=== PATIENT | male | born 1935 | race Caucasian/White ===

== ENCOUNTER 2018-01-10 14:12 | Inpatient (IN) | payer OTHER ==
--- NOTE | 2018-01-10 14:32 | PDOC ---
History of Present Illness - General Chief Complaint: SIRS, Suspected/Possible Stated Complaint: Faliure to Thrive Time Seen by Provider: 01/10/18 14:30 History Source: Patient, [facility] Records (Called [facility]) Exam Limitations: Dementia - History of Present Illness Initial Comments: Pt, with PMH of dementia, HTN, HLD, COPD, and DM, presents with altered mental status, abdominal distension, fever, diarrhea, and decreased oral intake x3 days. Pt comes from [facility], who stated that the pt is normally alert and oriented. The pt can respond minimally to questions, and he says he feels "full" in his abdomen, and that he has had vomiting and diarrhea. The rest of the review of systems I was not able to obtain from pt due to lack of response. 01/10/18 16:55 Past History - Travel Traveled outside of the country in the last 30 days: No Close contact w/someone who was outside of country & ill: No - Past Medical History Allergies/Adverse Reactions: Allergies Allergy/AdvReac Type Severity Reaction Status Date / Time No Known Allergies Allergy Verified 01/10/18 15:42 Home Medications: Ambulatory Orders Acetaminophen [Tylenol] 325 mg PO PRN PRN 01/10/18 Aspirin [ASA -] 81 mg PO DAILY 01/10/18 Atorvastatin Ca [Lipitor] 20 mg PO HS 01/10/18 Brinzolamide [Azopt] 1 drop OP BID 01/10/18 Ceftriaxone 1 G/50 ml Premix [Ceftriaxone 1 gm-D5w Bag] 1 gm IVPB DAILY Dextran 70/Hypromellose/Pf [Artificial Tears Drops] 1 each OP BID 01/10/18 Divalproex *ER* [Depakote *ER* -] 500 mg PO BID 01/10/18 Docusate Sodium [Colace] 100 mg PO DAILY 01/10/18 Gabapentin [Neurontin] 600 mg PO TID 01/10/18 Latanoprost 0.005% Eye Drops [Xalatan 0.005% Eye Drops -] 1 drop OP HS 01/10/18 Levocetirizine Dihydrochloride [Xyzal] 5 mg PO HS 01/10/18 Magnesium Hydroxide [Milk of Magnesia -] 30 ml PO DAILY PRN 01/10/18 Menthol/Colloidal Oatmeal [Eucerin Calm Itch-Relief Lot] 200 ml TP BID 01/10/18 Metformin HCl [Glucophage] 500 mg PO DAILY 01/10/18 Metoprolol Tartrate [Lopressor -] 25 mg PO BID 01/10/18 Montelukast Sodium [Singulair] 10 mg PO DAILY 01/10/18 Omeprazole Magnesium [Prilosec Otc] 20 mg PO DAILY 01/10/18 Ramipril [Altace] 2.5 mg PO DAILY 01/10/18 Sennosides [Senna] 8.6 mg PO HS 01/10/18 Sitagliptin Phosphate [Januvia] 100 mg PO DAILY 01/10/18 Sodium Phosphate,[place]-Dibasic [Fleet Enema] 133 ml RC PRN PRN 01/10/18 Tamsulosin HCl [Flomax] 0.4 mg PO DAILY 01/10/18 Hx Myocardial Infarction: No COPD: Yes CHF: No Diabetes: Yes Dialysis: No HTN: Yes Hypercholesterolemia: Yes Psychiatric Problems: Yes (Dementia) Review of Systems - Review of Systems Able to Perform ROS?: No Comments:: Pt limited in response, gathered some recent history details from [facility]. 01/10/18 17:11 Is the patient limited Angolan proficient: Yes Constitutional: Yes: Fever, Loss of Appetite ABD/GI: Yes: Abdominal Distended, Constipated, Diarrhea (Constipated x3 days, now having loose brown stool), Poor Appetite, Vomiting Psychiatric: Yes: Change in Appetite *Physical Exam - Physical Exam General Appearance: Yes: Nourished, Appropriately Dressed, Apparent Distress ( Pt complaining of abdominal "fullness", febrile by rectal temperature, tachypneic/poor inspiration) HEENT: positive: EOMI, Normal ENT Inspection, Normal Voice, Symmetrical. negative: Tonsillar Exudate Neck: positive: Trachea midline, Normal Thyroid, Supple. negative: Tender, Rigid Respiratory/Chest: positive: Lungs Clear, Normal Breath Sounds (clear chest sounds, short inspiration.). negative: Chest Tender, Accessory Muscle Use, Decreased Breath Sounds Cardiovascular: positive: Regular Rhythm, Regular Rate, S1, S2, Edema (mild edema to mid-shins). negative: JVD, Murmur Vascular Pulses: Dorsalis-Pedis (R): 4+, Doralis-Pedis (L): 4+ Gastrointestinal/Abdominal: positive: Soft (taut abdomen, no rebound, no guarding.), Decreased BS, Distended (very distended and protuberant abdomen). negative: Normal Bowel Sounds, Tender, Flat, Organomegaly Rectal Exam: positive: heme negative stool (loose brown stool), NL Prostate, normal rectal tone, hemorrhoids Lymphatic: negative: Adenopathy, Tenderness Musculoskeletal: positive: Normal Inspection. negative: CVA Tenderness Extremity: positive: Normal Capillary Refill, Normal Inspection, Normal Range of Motion, Pelvis Stable. negative: Tender Integumentary: positive: Normal Color, Dry, Warm. negative: Mottled, Diaphoresis, Rash, Ecchymosis, Bruising Neurologic: positive: Alert (pt opens eyes to voice. minimally following commands, but can shake head yes and no. Doesn't answer orientation questions.) , Motor Strength 5/5, Disoriented. negative: Fully Oriented, Normal Mood/Affect , Normal Response Heart Score/ECG Review - History History: Slightly suspicious - Age Age: >/= 65 - Risk Factors Risk Factors Heart Score: Yes Hx Hypercholesterolemia, Yes Hx Hypertension, Yes Hx Diabetes - Troponin Troponin: 1-3x normal limit - ECG Intrepretation Rhythm: Regular Rhythm - [place] Greendale: Left [place] Deviation - P and [place] Delta Wave(s) Present: No WPW: No - QRS Widened: RBBB (RBBB present from prior cardiac work-up at [facility]. No other recent ECG to compare.) - ST and T Flattened T Waves: No Prolonged Q-T Interval: Yes - ECG Impressions Normal ECG: No Non-specific ST Elevation: No Ischemic Changes: No Bradycardia: No Torsades ingrid Pointes: No WPW: No ED Treatment Course - LABORATORY CBC & Chemistry Diagram: 01/10/18 15:26 01/10/18 15:26 - RADIOLOGY Radiology Studies Ordered: chest x-ray CT abdomen and pelvis, non-contrast. CT head non-contrast 01/10/18 17:41 Medical Decision Making - Medical Decision Making Pt seen at bedside, provided 3L O2 as pt appeared to have poor inspiratory effort and was tachypneic. Ordered septic work-up (ECG, troponin, BGM, CBC, CMP , UA and culture, lactate, blood cultures.) Started 1L NS, Vanc (1.5 g) and zosyn (4.5 g). Also ordered chest x-ray, CT abd/pelvis without contrast, and Head CT non- contrast to r/o abdominal pathology and bleed. ECG showed RBBB, which was present from his last visit for stress test in 2011. 01/10/18 16:03 BGM 221 01/10/18 16:16 Pt lactic acid 2.6, WBC 26, BUN 34, Cr 2. UA and occult stool negative for blood. Troponin .06, likely due to increased cardiac demand. Sending c diff toxin. 01/10/18 17:[address] abd/pelvis to admit to hospitalist. 01/10/18 18:06 Added lipase, sent to lab. 01/10/18 18:15 Dr. Romo spoke to hospitalist, will admit to Dr. Cleary. Repeat vitals improved, no hypotension. 01/10/18 19:06 *DC/Admit/Observation/Transfer Diagnosis at time of Disposition: Severe sepsis Pancreatitis Qualifiers: Chronicity: acute Pancreatitis type: unspecified pancreatitis type Acute pancreatitis complication: unspecified Qualified Code(s): K85.90 - Acute pancreatitis without necrosis or infection, unspecified - Discharge Dispostion Decision to Admit order: Yes - Referrals Referrals: Shabnam Leung MD [Primary Care Provider] - - Patient Instructions - Post Discharge Activity
--- NOTE | 2018-01-10 14:47 | PDOC ---
Attending Attestation - Resident Resident Name: Shanna Bhakta - Medical Decision Making 01/10/18 16:01 Pt presents to the ED after sent in from [facility] for generalized malaise, decreased PO intake, and constipation. Found to be altered in the ED with abdominal distention. Also febrile. Patient is likely septic from unknown source. Given his severe abdominal distention, differential includes SBO or large bowel obstruction, volvulus, perforation, less likely diverticulitis, colitis, intraabdominal abscess. Will check CT abdomen pelvis. Will start broad spectrum antibiotics. Will check UA and blood cultures. <Essence Romo - Last Filed: 01/10/18 16:00> - HPI HPI: 01/10/18 17:15 Patient is an 82 year old male with a significant past medical history of dementia, HTN, HLD, COPD, and DM, who presents to the ED with complaints of of abdominal distention that began x3 days ago. As per [facility] staff, patient began to complain of experiencing symptoms of fullness as well as associated symptoms of increased fever, decreased appetite, and diarrhea, prompting them to send the patient to the ED for further evaluation. [facility] staff state has not been at baseline, stating he does not speak in full sentences like usual. Denies chest pain, Sob. Denies nausea, vomiting. Denies fevers, chills. Denies contact with sick individuals, out of state travelling. Denies head trauma, loss of consciousness, vision changes. Denies dysuria, hematuria, constipation, diarrhea. Denies any other symptoms. Allergies: None Social history: From [facility]. No smoking. No alcohol. No illicit drugs. Surgical history: PMD: Dr. Shabnam Ruelas - Physicial Exam PE: 01/10/18 17:16 GENERAL: +Lethargic. +Unable to to answer questions or follow commands. Awake, alert, and fully oriented, in no acute distress HEAD: No signs of trauma EYES: +Opens eyes to loud noise. PERRLA, EOMI, sclera anicteric, conjunctiva clear ENT: Auricles normal inspection, hearing grossly normal, nares patent, oropharynx clear without exudates. Moist mucosa NECK: Normal ROM, supple, no lymphadenopathy, JVD, or masses LUNGS: Breath sounds equal, clear to auscultation bilaterally. No wheezes, and no crackles HEART: Regular rate and rhythm, normal S1 and S2, no murmurs, rubs or gallops ABDOMEN: +Distended. Non rigid. Soft, nontender, normoactive bowel sounds. No guarding, no rebound. No masses EXTREMITIES: Normal range of motion, no edema. No clubbing or cyanosis. No cords, erythema, or tenderness NEUROLOGICAL: Cranial nerves II through XII grossly intact. Normal speech, normal gait SKIN: Warm, Dry, normal turgor, no rashes or lesions noted. <Genaro Louis - Last Filed: 01/10/18 17:16>
[2018-01-10 15:37] LABS: BASO % 0.1 % (0-2.0); HEMATOCRIT 40.9 % (35.4-49); HEMOGLOBIN 13.6 GM/dL (11.7-16.9); LYMPH % 3.1 % (8-40); MCH 31.1 pg (25.7-33.7); MCHC 33.2 g/dl (32.0-35.9); MEAN CELL VOLUME 93.6 fl (80-96); MEAN PLT VOLUME 9.9 fl (7.5-11.1); MONO % 10.8 % (3.8-10.2); PLATELET COUNT 260 K/MM3 (134-434); RBC 4.37 M/mm3 (4.00-5.60); RDW 14.5 % (11.9-15.9); WHITE BLOOD COUNT 26.8 K/mm3 (4.0-10.0)
[2018-01-10 15:40] LABS: VENOUS PC02 49.2 mmHg (38-52); VENOUS PH 7.4 (7.32-7.42); VENOUS PO2 23.9 mmHg (28-48)
[2018-01-10] MEDS: SODIUM CHLORIDE 1,000 ML IV STA ×2 (15:43→15:47)
[2018-01-10] MEDS ORDERED: ACETAMINOPHEN 1000 MG/100 ML VIAL (NON FORMULARY) IVPB ONE (15:44)
[2018-01-10] MEDS ORDERED: ACETAMINOPHEN INJECTION 100 ML IVPB ONE (15:45)
[2018-01-10 15:56] LABS: INR 1.38 (0.82-1.09); PROTHROMBIN TIME (PATIENT) 15.6 SEC (9.7-13.0)
[2018-01-10] MEDS ORDERED: VANCOMYCIN 1,500 MG in DEXTROSE 5%-WATER - 500 ML IVPB ONE (15:56)
[2018-01-10 15:58] LABS: ACTIVATED PTT 28.5 SECONDS (25.2-36.5)
[2018-01-10] MEDS ORDERED: PIPERACILLIN/TAZOB 4.5 GM 4.5 GM in DEXTROSE 5%-WATER 100 ML IVPB ONE (15:59)
[2018-01-10 16:13] LABS: ALBUMIN 2.8 g/dl (3.4-5.0); ANION GAP 10 (8-16); CALCIUM 8.3 mg/dL (8.5-10.1); CHLORIDE 100 mmol/L (98-107); CO2 30 mmol/L (21-32); GLUCOSE,RANDOM 170 mg/dL (74-106); POTASSIUM 4.6 mmol/L (3.5-5.1); SGOT/AST 41 U/L (15-37); SGPT/ALT 20 U/L (12-78); SODIUM 140 mmol/L (136-145)
[2018-01-10 16:17] LABS: ALK PHOS 66 U/L (45-117); BILIRUBIN,TOTAL 0.8 mg/dL (0.2-1.0); BLOOD UREA NITROGEN 34 mg/dL (7-18); TOT PROT 7.3 g/dl (6.4-8.2)
[2018-01-10 16:41] LABS: URINE APPEARANCE SLCLOUDY; URINE BILIRUBIN NEGATIVE (<2.0 mg/dL); URINE COLOR AMBER; URINE GLUCOSE (UA) NEGATIVE (NEGATIVE); URINE KETONE NEGATIVE (NEGATIVE); URINE LEUK ESTERASE NEGATIVE (NEGATIVE); URINE NITRITE NEGATIVE (NEGATIVE); URINE UROBILINOGEN NEGATIVE mg/dL (0.2-1.0)
[2018-01-10 16:42] LABS: URINE PROTEIN 2+ (NEGATIVE)
[2018-01-10 16:45] LABS: URINE BACTERIA RARE /hpf (NONE SEEN); URINE MUCUS FEW
[2018-01-10] MEDS ORDERED: VANCOMYCIN 1 GRAM (PRE-DOCKED) 1,000 MG/250 ML BAG IVPB ONE (16:47)
[2018-01-10] MEDS ORDERED: PIPERACILLIN/TAZOB 4.5 GM 4.5 GM/100 ML BAG IVPB ONE (16:47)
[2018-01-10 18:17] LABS: PLATELET ESTIMATE ADEQUATE
--- NOTE | 2018-01-10 23:48 | HP ---
CHIEF COMPLAINT: vomiting, abdominal pain, fever PCP: Evin HISTORY OF PRESENT ILLNESS: 82yo man with PMH of dementia, HTN, HLD, COPD, and DM, presented from [facility] complaining of abdominal pain, fever, nausea, vomiting for the past few days. Abdominal pain is epigastric, no radiation, no clear alleviating or worsening factors. No clear causative factors. Denied history of eoth abuse, gallstones, or trauma. Pt with constipation as well. ER course was notable for: (1) vancomycin (2) zosyn (3) CT of abdomen/pelvis Recent Travel: no PAST MEDICAL HISTORY: HTN, HLD, COPD, and DM, PAST SURGICAL HISTORY: pacemaker placement Social History: Smoking: no Alcohol: no Drugs: no Family History: noncontributory Allergies No Known Allergies Allergy (Verified 01/10/18 15:42) HOME MEDICATIONS: Home Medications Medication Instructions Recorded Acetaminophen [Tylenol] 325 mg PO PRN PRN 01/10/18 Aspirin [ASA -] 81 mg PO DAILY 01/10/18 Atorvastatin Ca [Lipitor] 20 mg PO HS 01/10/18 Brinzolamide [Azopt] 1 drop OP BID 01/10/18 Ceftriaxone 1 G/50 ml Premix 1 gm IVPB DAILY 01/10/18 [Ceftriaxone 1 gm-D5w Bag] Dextran 70/Hypromellose/Pf 1 each OP BID 01/10/18 [Artificial Tears Drops] Divalproex *ER* [Depakote *ER* -] 500 mg PO BID 01/10/18 Docusate Sodium [Colace] 100 mg PO DAILY 01/10/18 Gabapentin [Neurontin] 600 mg PO TID 01/10/18 Latanoprost 0.005% Eye Drops 1 drop OP HS 01/10/18 [Xalatan 0.005% Eye Drops -] Levocetirizine Dihydrochloride 5 mg PO HS 01/10/18 [Xyzal] Magnesium Hydroxide [Milk of 30 ml PO DAILY PRN 01/10/18 Magnesia -] Menthol/Colloidal Oatmeal [Eucerin 200 ml TP BID 01/10/18 Calm Itch-Relief Lot] Metformin HCl [Glucophage] 500 mg PO DAILY 01/10/18 Metoprolol Tartrate [Lopressor -] 25 mg PO BID 01/10/18 Montelukast Sodium [Singulair] 10 mg PO DAILY 01/10/18 Omeprazole Magnesium [Prilosec Otc] 20 mg PO DAILY 01/10/18 Ramipril [Altace] 2.5 mg PO DAILY 01/10/18 Sennosides [Senna] 8.6 mg PO HS 01/10/18 Sitagliptin Phosphate [Januvia] 100 mg PO DAILY 01/10/18 Sodium Phosphate,[place]-Dibasic 133 ml RC PRN PRN 01/10/18 [Fleet Enema] Tamsulosin HCl [Flomax] 0.4 mg PO DAILY 01/10/18 REVIEW OF SYSTEMS CONSTITUTIONAL: fever, chills, generalized weakness Absent: malaise, loss of appetite, weight change HEENT: Absent: rhinorrhea, nasal congestion, throat pain, throat swelling, difficulty swallowing, mouth swelling, ear pain, eye pain, visual changes CARDIOVASCULAR: Absent: chest pain, syncope, palpitations, irregular heart rate, lightheadedness , peripheral edema RESPIRATORY: shortness of breath Absent: cough, dyspnea with exertion, orthopnea, wheezing, stridor, hemoptysis GASTROINTESTINAL:abdominal pain, nausea, vomiting, abdominal distension, Absent: diarrhea, constipation, melena, hematochezia GENITOURINARY: dysuria, Absent:frequency, urgency, hesitancy, hematuria, flank pain, genital pain MUSCULOSKELETAL: Absent: myalgia, arthralgia, joint swelling, back pain, neck pain SKIN: Absent: rash, itching, pallor HEMATOLOGIC/IMMUNOLOGIC: Absent: easy bleeding, easy bruising, lymphadenopathy, frequent infections ENDOCRINE: Absent: unexplained weight gain, unexplained weight loss, heat intolerance, cold intolerance NEUROLOGIC: Absent: headache, focal weakness or paresthesias, dizziness, unsteady gait, seizure, mental status changes, bladder or bowel incontinence PSYCHIATRIC: Absent: anxiety, depression, suicidal or homicidal ideation, hallucinations. PHYSICAL EXAMINATION Vital Signs - 24 hr 01/10/18 01/10/18 01/10/18 14:29 15:18 17:21 Temperature 100.8 F H 97.8 F Pulse Rate 79 84 Pulse Rate [ 84 Left Apical] Respiratory 16 16 Rate Blood Pressure 137/86 136/83 Blood Pressure 136/83 [Left Arm] O2 Sat by Pulse 79 L 96 98 Oximetry (%) 01/10/18 01/10/18 01/10/18 18:55 20:49 22:46 Temperature 98.9 F 98.6 F 99 F Pulse Rate 94 H Pulse Rate [ 84 79 Left Apical] Respiratory 22 20 20 Rate Blood Pressure 115/75 Blood Pressure 161/77 137/64 [Left Arm] O2 Sat by Pulse 96 98 Oximetry (%) 01/10/18 23:14 Temperature Pulse Rate Pulse Rate [ Left Apical] Respiratory 20 Rate Blood Pressure Blood Pressure [Left Arm] O2 Sat by Pulse 96 Oximetry (%) GENERAL: Awake, alert, and fully oriented, appears comfortable HEAD: Normal with no signs of trauma. EYES: Pupils equal, round and reactive to light, extraocular movements intact, sclera anicteric, conjunctiva clear. No lid lag. EARS, NOSE, THROAT: Ears normal, nares patent, oropharynx clear without exudates. Moist mucous membranes. NECK: Normal range of motion, supple without lymphadenopathy, JVD, or masses. LUNGS: Breath sounds equal, clear to auscultation bilaterally. No wheezes, and no crackles. No accessory muscle use. HEART: Regular rate and rhythm, normal S1 and S2 without murmur, rub or gallop. ABDOMEN: mild distention, decreased bowel sounds MUSCULOSKELETAL: Normal range of motion at all joints. No bony deformities or tenderness. No CVA tenderness. UPPER EXTREMITIES: 2+ pulses, warm, well-perfused. No cyanosis. No clubbing. No peripheral edema. LOWER EXTREMITIES: 2+ pulses, warm, well-perfused. No calf tenderness. No peripheral edema. PSYCHIATRIC: Cooperative. Good eye contact. Appropriate mood and affect. SKIN: Warm, dry, normal turgor, no rashes or lesions noted, normal capillary refill. Laboratory Results - last 24 hr 01/10/18 01/10/18 01/10/18 15:25 15:26 15:26 WBC 26.8 H RBC 4.37 Hgb 13.6 Hct 40.9 MCV 93.6 MCH 31.1 MCHC 33.2 RDW 14.5 Plt Count 260 MPV 9.9 Absolute Neuts (auto) 23.1 Neutrophils % 86.0 H Neutrophils % (Manual) 58.0 Band Neutrophils % 22.0 Lymphocytes % 3.1 L Lymphocytes % (Manual) 9.0 Monocytes % 10.8 H Monocytes % (Manual) 11 H Eosinophils % 0.0 Eosinophils % (Manual) 0.0 Basophils % 0.1 Basophils % (Manual) 0.0 Nucleated RBC % 0 Platelet Estimate Adequate PT with INR 15.60 H* INR 1.38 H PTT (Actin FS) 28.5 VBG pH 7.40 POC VBG pCO2 49.2 POC VBG pO2 23.9 L Mixed VBG HCO3 29.8 H Sodium Potassium Chloride Carbon Dioxide Anion Gap BUN Creatinine Creat Clearance w eGFR POC Glucometer Random Glucose Lactic Acid Calcium Total Bilirubin AST ALT Alkaline Phosphatase Troponin I Total Protein Albumin Lipase Urine Color Urine Appearance Urine pH Ur Specific [place] Urine Protein Urine Glucose (UA) Urine Ketones Urine Blood Urine Nitrite Urine Bilirubin Urine Urobilinogen Ur Leukocyte Esterase Urine WBC (Auto) Urine RBC (Auto) Urine Bacteria Urine Mucus Stool Occult Blood 01/10/18 01/10/18 01/10/18 15:26 15:26 15:26 WBC RBC Hgb Hct MCV MCH MCHC RDW Plt Count MPV Absolute Neuts (auto) Neutrophils % Neutrophils % (Manual) Band Neutrophils % Lymphocytes % Lymphocytes % (Manual) Monocytes % Monocytes % (Manual) Eosinophils % Eosinophils % (Manual) Basophils % Basophils % (Manual) Nucleated RBC % Platelet Estimate PT with INR INR PTT (Actin FS) VBG pH POC VBG pCO2 POC VBG pO2 Mixed VBG HCO3 Sodium 140 Potassium 4.6 Chloride 100 Carbon Dioxide 30 Anion Gap 10 BUN 34 H Creatinine 2.0 H Creat Clearance w eGFR 32.31 POC Glucometer Random Glucose 170 H Lactic Acid 2.6 H* Calcium 8.3 L Total Bilirubin 0.8 AST 41 H ALT 20 Alkaline Phosphatase 66 Troponin I 0.06 H Total Protein 7.3 Albumin 2.8 L Lipase Urine Color Urine Appearance Urine pH Ur Specific [place] Urine Protein Urine Glucose (UA) Urine Ketones Urine Blood Urine Nitrite Urine Bilirubin Urine Urobilinogen Ur Leukocyte Esterase Urine WBC (Auto) Urine RBC (Auto) Urine Bacteria Urine Mucus Stool Occult Blood Negative 01/10/18 01/10/18 01/10/18 16:00 16:12 18:48 WBC RBC Hgb Hct MCV MCH MCHC RDW Plt Count MPV Absolute Neuts (auto) Neutrophils % Neutrophils % (Manual) Band Neutrophils % Lymphocytes % Lymphocytes % (Manual) Monocytes % Monocytes % (Manual) Eosinophils % Eosinophils % (Manual) Basophils % Basophils % (Manual) Nucleated RBC % Platelet Estimate PT with INR INR PTT (Actin FS) VBG pH POC VBG pCO2 POC VBG pO2 Mixed VBG HCO3 Sodium Potassium Chloride Carbon Dioxide Anion Gap BUN Creatinine Creat Clearance w eGFR POC Glucometer [phone] Random Glucose Lactic Acid 2.0 Calcium Total Bilirubin AST ALT Alkaline Phosphatase Troponin I Total Protein Albumin Lipase Urine Color Allison Urine Appearance Slcloudy Urine pH 5.0 Ur Specific [place] 1.030 Urine Protein 2+ H Urine Glucose (UA) Negative Urine Ketones Negative Urine Blood 1+ H Urine Nitrite Negative Urine Bilirubin Negative Urine Urobilinogen Negative Ur Leukocyte Esterase Negative Urine WBC (Auto) 4 Urine RBC (Auto) 15 Urine Bacteria Rare Urine Mucus Few Stool Occult Blood 01/10/18 18:48 WBC RBC Hgb Hct MCV MCH MCHC RDW Plt Count MPV Absolute Neuts (auto) Neutrophils % Neutrophils % (Manual) Band Neutrophils % Lymphocytes % Lymphocytes % (Manual) Monocytes % Monocytes % (Manual) Eosinophils % Eosinophils % (Manual) Basophils % Basophils % (Manual) Nucleated RBC % Platelet Estimate PT with INR INR PTT (Actin FS) VBG pH POC VBG pCO2 POC VBG pO2 Mixed VBG HCO3 Sodium Potassium Chloride Carbon Dioxide Anion Gap BUN Creatinine Creat Clearance w eGFR POC Glucometer Random Glucose Lactic Acid Calcium Total Bilirubin AST ALT Alkaline Phosphatase Troponin I Total Protein Albumin Lipase 677 H Urine Color Urine Appearance Urine pH Ur Specific [place] Urine Protein Urine Glucose (UA) Urine Ketones Urine Blood Urine Nitrite Urine Bilirubin Urine Urobilinogen Ur Leukocyte Esterase Urine WBC (Auto) Urine RBC (Auto) Urine Bacteria Urine Mucus Stool Occult Blood ekg - reveiwed sinus rhythm CT of abdomen and pelvis reviewed- acute pancreatitis, concentric wall thickening of splenic flexure and descending colon head ct - reviewed, wnl ASSESSMENT/PLAN: #82yo man with acute pancreatitis and colitis #Pancreatitis - unknown etiology, must r/o hyperlidemia, gallstones, etoh, medications induced ? -admit to med/surg -NPO for now -IV fluid hydration -lipid panel -liver US -consider ERCP -tylenol prn for pain- avoid opiates as pt was consitpated #Sepsis secondary to colitis - received zosyn and vanco previously. Fevers may be related to underlying colitis. Initial lactic acidosis had improved. -NPO for now -ceftriaxone 2g IV q24hrs -metronidazole 500mg IV q8hrs -stool for c diff sent -order stool stool culture, WBC count, O,P #Mild Tropinemia- unlikely ACS, may be secondary to sepsis. EKG not suggestive of ACS -trend trop -ASA -cardiology evaluation (also for cardiac device interrogation) # will continue home medications for chronic medical problems -[facility] for dvt prophylaxis Visit type - Emergency Visit Emergency Visit: Yes ED Registration Date: 01/10/18 Care time: The patient presented to the Emergency Department on the above date and was hospitalized for further evaluation of their emergent condition. - New Patient This patient is new to me today: Yes Date on this admission: 01/11/18 - Critical Care Critical Care patient: No Hospitalist Screening - Colonoscopy Questionnaire Colonoscopy Questionnaire: Colonoscopy Questionnaire - Patient: 50 - 75 years old and never had a screening colonoscopy: No History of colon or rectal polyps, or CA: No History of IBD, Crohn's disease or UC: No History of abdominal radiation therapy as a child: No - Relative: 1 with colon or rectal CA, or polyps at age 60 or younger: Unknown Colon or rectal CA diagnosed at age 45 or younger: Unknown Multiple relatives with colon or rectal CA: Unknown - Outcome: Screening Result: Negative Screen
[2018-01-11] MEDS ORDERED: DEXTROSE 5%-WATER 100 ML IVPB ONE ×2 (01:07→09:08)
[2018-01-11] MEDS: CEFTRIAXONE 2 GM in DEXTROSE 5%-WATER 100 ML IVPB SCH ×2 (01:19→10:10)
[2018-01-11] MEDS ORDERED: DOCUSATE SODIUM 100 MG CAPSULE (FP) PO SCH (06:00)
[2018-01-11] MEDS: GABAPENTIN 300 MG CAPSULE (FP) PO SCH ×3 (06:11→21:28)
[2018-01-11] MEDS: HEPARIN NA (PORCINE) 5,000 UNITS/ML 1ML VIAL SQ SCH ×3 (06:11→21:28)
[2018-01-11] MEDS: INSULIN SLIDING SCALE (NOVOLOG) 1 VIAL SQ SCH ×4 (06:12→22:46)
[2018-01-11 07:35] LABS: HEMATOCRIT 36.4 % (35.4-49); MCH 31.2 pg (25.7-33.7); MEAN CELL VOLUME 94.5 fl (80-96); MEAN PLT VOLUME 10.1 fl (7.5-11.1); PLATELET COUNT 183 K/MM3 (134-434); RBC 3.86 M/mm3 (4.00-5.60); RDW 14.9 % (11.9-15.9); WHITE BLOOD COUNT 22.9 K/mm3 (4.0-10.0)
[2018-01-11 08:04] LABS: ANION GAP 8 (8-16); BLOOD UREA NITROGEN 28 mg/dL (7-18); CALCIUM 7.6 mg/dL (8.5-10.1); CHLORIDE 106 mmol/L (98-107); CHOLESTEROL 74 mg/dL (50-200); CO2 28 mmol/L (21-32); CREATININE 1.6 mg/dL (0.7-1.3); GLUCOSE,RANDOM 137 mg/dL (74-106); MAGNESIUM 2.3 mg/dL (1.8-2.4); POTASSIUM 4.2 mmol/L (3.5-5.1); SODIUM 142 mmol/L (136-145); TRIGLYCERIDES 102 mg/dL (35-160)
[2018-01-11 08:07] LABS: HDL CHOLESTEROL 12 mg/dL (40-60)
[2018-01-11] MEDS ORDERED: ACETAMINOPHEN 1000 MG/100 ML VIAL (NON FORMULARY) IVPB PRN (09:14)
[2018-01-11] MEDS ORDERED: SODIUM CHLORIDE 0.45% 1,000 ML IV SCH ×3 (09:15→13:15)
[2018-01-11] MEDS ORDERED: HEPARIN NA (PORCINE) 5,000 UNITS/ML 1ML VIAL SQ SCH (10:00)
[2018-01-11] MEDS ORDERED: DIVALPROEX SODIUM 500 MG TABLET E.C. PO SCH (10:00)
[2018-01-11] MEDS: ASPIRIN 81 MG CHEWABLE TABLETS PO SCH (10:15)
[2018-01-11] MEDS: METOPROLOL TARTRATE 25 MG TABLET (FP) PO SCH ×2 (10:15→21:28)
[2018-01-11] MEDS: PANTOPRAZOLE 20 MG TABLET (FP) PO SCH (10:15)
[2018-01-11] MEDS: TAMSULOSIN HCL 0.4 MG CAP.ER.24H (FP) PO SCH (10:15)
[2018-01-11] MEDS: RAMIPRIL 2.5 MG CAPSULE (FP) PO SCH (10:15)
--- NOTE | 2018-01-11 10:40 | CON.GI ---
Consult Consult Specialty:: GI: For Dr. Ryan Referred by:: Hospitalist Service Reason for Consultation:: Abdominal Pain - History of Present Illness Chief Complaint: [employer] [id number] utilized however patient could not give history History of Present Illness: History obtained from the chart. When I asked Mr. Montemayor why he was in the hospital via [place] [employer] mechanic assistant [id number] he did not give a verbal response but just pointed to his abdomen. The admission note states that he was admitted from the [place] complaining of abdominal pain, fever, nausea, vomiting for the past few days. The admit noted states that the pain was epigastric, no radiation, no clear alleviating or worsening factors and that the patient denied a history of eoth abuse, gallstones, or trauma. It described that her has a histoory of constipation as well. The ER note reports diarrhea and a "significantly distended abdomen" as well. He has blood work revealing a significant leukocytosis of 26.8 An elevated lipase of [address] scan of the abdomen without contrast was performed revealing an edematous appearing pancreas as well as colon along the splenic flexure. There was concern for acute pancreatitis. He was given 1 L of fluid in the ER and has been maintained on 1/2 NS @ 80cc per hour from AM. He was febrile this morning. - History Source History Provided By: Medical Record Limitations to Obtaining History: Poor Historian - Past Medical History Cardio/Vascular: Yes: HTN, Hyperlipdemia Pulmonary: Yes: COPD Endocrine: Yes: Diabetes Mellitus - Past Surgical History Past Surgical History: Yes: Permanent Pacemaker Additional Surgical History: Uanble to obtain - Alcohol/Substance Use Hx Alcohol Use: No - Smoking History Smoking history: Former smoker Have you smoked in the past 12 months: No - Social History Usual Living Arrangement: Long Term Home Medications - Allergies Allergies/Adverse Reactions: Allergies Allergy/AdvReac Type Severity Reaction Status Date / Time No Known Allergies Allergy Verified 01/10/18 15:42 - Home Medications Home Medications: Ambulatory Orders Acetaminophen [Tylenol] 325 mg PO PRN PRN 01/10/18 Aspirin [ASA -] 81 mg PO DAILY 01/10/18 Atorvastatin Ca [Lipitor] 20 mg PO HS 01/10/18 Brinzolamide [Azopt] 1 drop OP BID 01/10/18 Ceftriaxone 1 G/50 ml Premix [Ceftriaxone 1 gm-D5w Bag] 1 gm IVPB DAILY Dextran 70/Hypromellose/Pf [Artificial Tears Drops] 1 each OP BID 01/10/18 Divalproex *ER* [Depakote *ER* -] 500 mg PO BID 01/10/18 Docusate Sodium [Colace] 100 mg PO DAILY 01/10/18 Gabapentin [Neurontin] 600 mg PO TID 01/10/18 Latanoprost 0.005% Eye Drops [Xalatan 0.005% Eye Drops -] 1 drop OP HS 01/10/18 Levocetirizine Dihydrochloride [Xyzal] 5 mg PO HS 01/10/18 Magnesium Hydroxide [Milk of Magnesia -] 30 ml PO DAILY PRN 01/10/18 Menthol/Colloidal Oatmeal [Eucerin Calm Itch-Relief Lot] 200 ml TP BID 01/10/18 Metformin HCl [Glucophage] 500 mg PO DAILY 01/10/18 Metoprolol Tartrate [Lopressor -] 25 mg PO BID 01/10/18 Montelukast Sodium [Singulair] 10 mg PO DAILY 01/10/18 Omeprazole Magnesium [Prilosec Otc] 20 mg PO DAILY 01/10/18 Ramipril [Altace] 2.5 mg PO DAILY 01/10/18 Sennosides [Senna] 8.6 mg PO HS 01/10/18 Sitagliptin Phosphate [Januvia] 100 mg PO DAILY 01/10/18 Sodium Phosphate,[place]-Dibasic [Fleet Enema] 133 ml RC PRN PRN 01/10/18 Tamsulosin HCl [Flomax] 0.4 mg PO DAILY 01/10/18 Family Disease History - Family Disease History Family History: Unable to Obtain Review of Systems Unable to obtain ROS, reason: Patient non-verbal Physical Exam-GI Vital Signs: Vital Signs Temperature 101.0 F H 01/11/18 07:53 Pulse Rate 94 H 01/11/18 07:53 Respiratory Rate 18 01/11/18 07:53 Blood Pressure 150/78 01/11/18 07:53 O2 Sat by Pulse Oximetry (%) 96 01/10/18 23:14 Constitutional: Yes: Calm Eyes: No: Sclera Icterus Cardiovascular: Yes: Regular Rate and Rhythm Respiratory: Yes: Rhonchi (at bases bilaterally), Tachypnea, Wheezes Gastrointestinal Inspection: No: Distention ...Auscultate: Yes: Normoactive Bowel Sounds ...Palpate: Yes: Soft, Tenderness (Mild grimacing upon palpation of the mid/ upper abdomen). No: Guarding, Tenderness, Rebound Edema: No (No LE edema) Neurological: Yes: Other (Awake) Labs: CBC, BMP 01/11/18 06:00 01/11/18 06:00 INR, PTT INR 1.38 (0.82-1.09) H 01/10/18 15:25 Hepatic Panel Total Bilirubin 0.8 mg/dL (0.2-1.0) 01/10/18 15:26 AST 41 U/L (15-37) H 01/10/18 15:26 ALT 20 U/L (12-78) 01/10/18 15:26 Alkaline Phosphatase 66 U/L (45-117) 01/10/18 15:26 Albumin 2.8 g/dl (3.4-5.0) L 01/10/18 15:26 01/10/18 01/11/18 18:48 06:00 Creatine Kinase 441 H Triglycerides 102 Lipase 677 H BISAP Score: 3 Imaging - Results Ultrasound: Report Reviewed (contracted, mildly thick walled GB, non-distended. No biliary ductal dilatation) Problem List - Problems (1) Pancreatitis Assessment/Plan: BISAP score of 3 on admission ? etiology. Does not appear to be gallstone pancreatitis and he was on Januvia as an outpatient as well as statin therapy, both of which can be associated with pancreatitis. Triglycerides WNL/ Also tachypnic on exam today Advise: Transfer to ICU for closer monitoring Repeat CXR ordered Increase IV fluids to 200 cc per hour for 1 L cc followed by 150cc per hour with close monitoring of cardiopulmonary status Strict I's and O's Code(s): K85.90 - ACUTE PANCREATITIS WITHOUT NECROSIS OR INFECTION, UNSP Qualifiers: Chronicity: acute Pancreatitis type: unspecified pancreatitis type Acute pancreatitis complication: unspecified Qualified Code(s): K85.90 - Acute pancreatitis without necrosis or infection, unspecified
--- NOTE | 2018-01-11 10:46 | CON.CARD ---
Consult Consult Specialty:: Cardiology Referred by:: Hospitalist Medicine Reason for Consultation:: Demand ischemia - History of Present Illness Chief Complaint: Epigatric pain History of Present Illness: 82yo man with PMH of dementia, HTN, HLD, COPD, DM, s/p PPM referred from long-term complaining of epigastric abdominal pain, fever, nausea, vomiting, anorexia for the past few days, abd/pelvic CT reveals acute pancreatitis, demand ischemia noted, cannot provide much history. - History Source History Provided By: Medical Record Limitations to Obtaining History: Language Barrier - Alcohol/Substance Use Hx Alcohol Use: No - Smoking History Smoking history: Former smoker Have you smoked in the past 12 months: No Home Medications - Allergies Allergies/Adverse Reactions: Allergies Allergy/AdvReac Type Severity Reaction Status Date / Time No Known Allergies Allergy Verified 01/10/18 15:42 - Home Medications Home Medications: Ambulatory Orders Acetaminophen [Tylenol] 325 mg PO PRN PRN 01/10/18 Aspirin [ASA -] 81 mg PO DAILY 01/10/18 Atorvastatin Ca [Lipitor] 20 mg PO HS 01/10/18 Brinzolamide [Azopt] 1 drop OP BID 01/10/18 Ceftriaxone 1 G/50 ml Premix [Ceftriaxone 1 gm-D5w Bag] 1 gm IVPB DAILY Dextran 70/Hypromellose/Pf [Artificial Tears Drops] 1 each OP BID 01/10/18 Divalproex *ER* [Depakote *ER* -] 500 mg PO BID 01/10/18 Docusate Sodium [Colace] 100 mg PO DAILY 01/10/18 Gabapentin [Neurontin] 600 mg PO TID 01/10/18 Latanoprost 0.005% Eye Drops [Xalatan 0.005% Eye Drops -] 1 drop OP HS 01/10/18 Levocetirizine Dihydrochloride [Xyzal] 5 mg PO HS 01/10/18 Magnesium Hydroxide [Milk of Magnesia -] 30 ml PO DAILY PRN 01/10/18 Menthol/Colloidal Oatmeal [Eucerin Calm Itch-Relief Lot] 200 ml TP BID 01/10/18 Metformin HCl [Glucophage] 500 mg PO DAILY 01/10/18 Metoprolol Tartrate [Lopressor -] 25 mg PO BID 01/10/18 Montelukast Sodium [Singulair] 10 mg PO DAILY 01/10/18 Omeprazole Magnesium [Prilosec Otc] 20 mg PO DAILY 01/10/18 Ramipril [Altace] 2.5 mg PO DAILY 01/10/18 Sennosides [Senna] 8.6 mg PO HS 01/10/18 Sitagliptin Phosphate [Januvia] 100 mg PO DAILY 01/10/18 Sodium Phosphate,[place]-Dibasic [Fleet Enema] 133 ml RC PRN PRN 01/10/18 Tamsulosin HCl [Flomax] 0.4 mg PO DAILY 01/10/18 Review of Systems - Review of Systems Gastrointestinal: reports: Abdominal Pain, Nausea, Vomiting Vital Signs: Vital Signs Temperature 101.0 F H 01/11/18 07:53 Pulse Rate 94 H 01/11/18 07:53 Respiratory Rate 18 01/11/18 07:53 Blood Pressure 150/78 01/11/18 07:53 O2 Sat by Pulse Oximetry (%) 96 01/10/18 23:14 Constitutional: Yes: No Distress, Calm Neck: Yes: Supple Respiratory: Yes: Regular, Diminished, On Nasal O2 Gastrointestinal: Yes: Soft, Hypoactive Bowel Sounds, Tenderness, Epigastrium Cardiovascular: Yes: Regular Rate and Rhythm JVD: No Carotid Bruit: No Heart Sounds: Yes: S1, S2 Murmur: Yes: Systolic Murmur, Grade 1 Edema: No - Other Data Labs, Other Data: CBC, BMP 01/11/18 06:00 01/11/18 06:00 INR, PTT INR 1.38 (0.82-1.09) H 01/10/18 15:25 Troponin, BNP 01/10/18 01/11/18 01/11/18 15:26 01:00 06:00 Troponin I 0.06 H 0.06 H 0.08 H D 01/11/18 06:00 Troponin I Cancelled Troponin, BNP 01/10/18 01/11/18 01/11/18 15:26 01:00 06:00 Troponin I 0.06 H 0.06 H 0.08 H D 01/11/18 06:00 Troponin I Cancelled A-paced @ 91 LAD, RBBB Imaging - Results Chest X-ray: Report Reviewed (Pacemaker) Ultrasound: Report Reviewed (No cholelithiasis or biliary dilatation) Assessment/Plan CT of abdomen and pelvis reviewed- acute pancreatitis, concentric wall thickening of splenic flexure and descending colon head ct - reviewed, wnl 1. Acute pancreatitis 2. Sepsis referable to above 3. Demand ischemia 4. Acute kidney injury improving 5. s/p PPM P:1. Bowel rest, IVF, abx, trend lactate, amylase, lipase, f/u stool studies 2. Trend trops to document peak 3. Interrogate PPM 4. Echocardiogram 5. DVT and GI prophylaxis 6. Continue Lopressor 25 bid, ASA 81 qd, Lipitor 20 qd, ramipril 2.5 qd with monitor renal recovery 7. Thank you for consultative opportunity
[2018-01-11] MEDS ORDERED: SODIUM CHLORIDE 1,000 ML IV SCH (11:15)
--- NOTE | 2018-01-11 11:17 | PN ---
Progress Note, Physician Chief Complaint: Event noted Pt admitted for poor oral intake, abdominal pain and distension Pt is usually alert and able to make needs known He had abdominal pain - 01/08 and had an episode of vomiting Pt is currently diaphoretic Has abdominal pain SOB+ - Current Medication List Current Medications: Active Medications Acetaminophen (Ofirmev Injection -) 1,000 mg IVPB Q6H PRN PRN Reason: FEVER Last Admin: 01/11/18 09:30 Dose: 1,000 mg Aspirin (Asa -) 81 mg PO DAILY [facility] Last Admin: 01/11/18 10:15 Dose: 81 mg Atorvastatin Calcium (Lipitor -) 20 mg PO HS [facility] Divalproex Sodium (Depakote -) 500 mg PO BID [facility] Last Admin: 01/11/18 10:15 Dose: 500 mg Docusate Sodium (Colace -) 100 mg PO TID [facility] Last Admin: 01/11/18 06:11 Dose: Not Given Gabapentin (Neurontin -) 600 mg PO TID [facility] Last Admin: 01/11/18 06:11 Dose: Not Given Heparin Sodium (Porcine) (Heparin -) 5,000 unit SQ TID [facility] Last Admin: 01/11/18 06:11 Dose: 5,000 unit Ceftriaxone Sodium 2 gm/ (Dextrose) 100 mls @ 200 mls/hr IVPB DAILY [facility]; Protocol Last Admin: 01/11/18 10:10 Dose: 200 mls/hr Metronidazole (Flagyl 500mg Premixed Ivpb -) 500 mg in 100 mls @ 100 mls/hr IVPB Q8H-IV [facility] Last Admin: 01/11/18 10:08 Dose: 100 mls/hr Sodium Chloride (1/2 Normal Saline) 1,000 mls @ 80 mls/hr IV ASDIR [facility] Last Admin: 01/11/18 10:04 Dose: 80 mls/hr Sodium Chloride (Normal Saline -) 1,000 mls @ 150 mls/hr IV ASDIR [facility] Insulin Aspart (Novolog Vial Sliding Scale -) 1 vial SQ ACHS [facility]; Protocol Last Admin: 01/11/18 06:12 Dose: Not Given Metoprolol Tartrate (Lopressor -) 25 mg PO BID [facility] Last Admin: 01/11/18 10:15 Dose: 25 mg Pantoprazole Sodium (Protonix -) 20 mg PO DAILY [facility] Last Admin: 01/11/18 10:15 Dose: 20 mg Ramipril (Altace -) 2.5 mg PO DAILY [facility] Last Admin: 01/11/18 10:15 Dose: 2.5 mg Tamsulosin HCl (Flomax -) 0.4 mg PO DAILY@0830 [facility] Last Admin: 01/11/18 10:15 Dose: 0.4 mg - Objective Vital Signs: Vital Signs Temperature 101.0 F H 01/11/18 10:30 Pulse Rate 102 H 01/11/18 10:30 Respiratory Rate 22 01/11/18 10:30 Blood Pressure 157/88 01/11/18 10:30 O2 Sat by Pulse Oximetry (%) 96 01/10/18 23:14 Constitutional: Yes: Moderate Distress Cardiovascular: Yes: Regular Rate and Rhythm, Tachycardia Respiratory: Yes: Diminished, Rales, Rhonchi Gastrointestinal: Yes: Normal Bowel Sounds, Soft, Abdomen, Obese, Tenderness (B/ L quadrants) Edema: Yes Labs: CBC, BMP 01/11/18 06:00 01/11/18 06:00 INR, PTT INR 1.38 (0.82-1.09) H 01/10/18 15:25 Problem List - Problems (1) FRANCISCO (acute kidney injury) Code(s): N17.9 - ACUTE KIDNEY FAILURE, UNSPECIFIED (2) Pacemaker Code(s): Z95.0 - PRESENCE OF CARDIAC PACEMAKER (3) Pancreatitis Code(s): K85.90 - ACUTE PANCREATITIS WITHOUT NECROSIS OR INFECTION, UNSP Qualifiers: Chronicity: acute Pancreatitis type: unspecified pancreatitis type Acute pancreatitis complication: unspecified Qualified Code(s): K85.90 - Acute pancreatitis without necrosis or infection, unspecified (4) Volume overload Code(s): E87.70 - FLUID OVERLOAD, UNSPECIFIED Assessment/Plan PLAN Pancreatitis ARDS- impending Sepsis - IV Fluids -- iv antibiotics -- cultures drawn -- transfer to ICU -- spoke with ID and GI -- nebs and O2 -- CXR noted
[2018-01-11] MEDS ORDERED: ALBUTEROL SO4 2.5/IPRATROPIUM 0.5 INH SOL 3 ML VIAL.NEB. NEB ONE (11:21)
--- NOTE | 2018-01-11 11:28 | PN ---
Progress Note (short form) - Note Progress Note: ID consult dictated imp/reccd 82 year old man admitted from [facility] with 3 day history of poor po intake and abdominal distension febrile to 101.6 yesterday at [facility]- transferred to ED noted to have fever, abdominal pain, leukocytosis ct scan with ?colitis, pancreatitis sono- no ductal dilatation, no gallstones cxray with enlarged heart and increased markings currently awake and alert very poor historian ?diarrhea, vomiting at [facility] ?colitis stools ordered-culture and cdiff probable pancreatitis probable volume overload sepsis Pancreatitis ?colitis FRANCISCO zosyn/flagyl until cultures are back for transfer to ICU to monitory respiratory status and volume status f/u cxray and labs Problem List - Problems (1) Sepsis Code(s): A41.9 - SEPSIS, UNSPECIFIED ORGANISM (2) Pancreatitis Code(s): K85.90 - ACUTE PANCREATITIS WITHOUT NECROSIS OR INFECTION, UNSP Qualifiers: Chronicity: acute Pancreatitis type: unspecified pancreatitis type Acute pancreatitis complication: unspecified Qualified Code(s): K85.90 - Acute pancreatitis without necrosis or infection, unspecified (3) Colitis Code(s): K52.9 - NONINFECTIVE GASTROENTERITIS AND COLITIS, UNSPECIFIED (4) Volume overload Code(s): E87.70 - FLUID OVERLOAD, UNSPECIFIED (5) FRANCISCO (acute kidney injury) Code(s): N17.9 - ACUTE KIDNEY FAILURE, UNSPECIFIED
[2018-01-11] MEDS: ALBUTEROL SO4 2.5/IPRATROPIUM 0.5 INH SOL 3 ML VIAL.NEB. NEB PRN (11:30)
--- NOTE | 2018-01-11 11:49 | CONSULT ---
Consult - text type - Consultation Consultation Note: Pulm/CCM Pt seen and examined in ICU Hx obtained from medical record, pt limited due to poor historian CC: abd pain, vomiting HPI: Briefly Mr Albina is an 82 y/o man with medical hx notable for of dementia , HTN, HLD, COPD, and DM, presented to ED yesterday with altered mental status, abdominal distension, fever, diarrhea, and decreased oral intake x3 days. Pt comes from [facility] where on good day pt is alert and conversant, independent of most ADLs. Was sent to ED when febrile and vomiting. Workup in ED revealed colitis and pancreatitis on CT. Pt had no evidence of biliary obstruction, no stones on US, no new meds, however is on depakote (common) and statin & metformin (less common but described). Pt was febrile with leukocytosis and L shift, started on ceftriaxone and flagyl. Had FRANCISCO given IVF. Was admitted to floor. Pt seen this AM by primary team and GI, was still febrile , diaphoretic, felt to be worsening, admitted to ICU for closer monitoring. CBC, BMP 01/11/18 06:00 01/11/18 06:00 Past Medical History Cardio/Vascular HTN,Hyperlipdemia Pulmonary COPD Endocrine Diabetes Mellitus Past Surgical History Past Surgical History Permanent Pacemaker Social History Smoking history Former smoker Have you smoked in the past 12 No months Hx Alcohol Use No Ambulatory Orders Acetaminophen [Tylenol] 325 mg PO PRN PRN 01/10/18 Aspirin [ASA -] 81 mg PO DAILY 01/10/18 Atorvastatin Ca [Lipitor] 20 mg PO HS 01/10/18 Brinzolamide [Azopt] 1 drop OP BID 01/10/18 Ceftriaxone 1 G/50 ml Premix [Ceftriaxone 1 gm-D5w Bag] 1 gm IVPB DAILY Dextran 70/Hypromellose/Pf [Artificial Tears Drops] 1 each OP BID 01/10/18 Divalproex *ER* [Depakote *ER* -] 500 mg PO BID 01/10/18 Docusate Sodium [Colace] 100 mg PO DAILY 01/10/18 Gabapentin [Neurontin] 600 mg PO TID 01/10/18 Latanoprost 0.005% Eye Drops [Xalatan 0.005% Eye Drops -] 1 drop OP HS 01/10/18 Levocetirizine Dihydrochloride [Xyzal] 5 mg PO HS 01/10/18 Magnesium Hydroxide [Milk of Magnesia -] 30 ml PO DAILY PRN 01/10/18 Menthol/Colloidal Oatmeal [Eucerin Calm Itch-Relief Lot] 200 ml TP BID 01/10/18 Metformin HCl [Glucophage] 500 mg PO DAILY 01/10/18 Metoprolol Tartrate [Lopressor -] 25 mg PO BID 01/10/18 Montelukast Sodium [Singulair] 10 mg PO DAILY 01/10/18 Omeprazole Magnesium [Prilosec Otc] 20 mg PO DAILY 01/10/18 Ramipril [Altace] 2.5 mg PO DAILY 01/10/18 Sennosides [Senna] 8.6 mg PO HS 01/10/18 Sitagliptin Phosphate [Januvia] 100 mg PO DAILY 01/10/18 Sodium Phosphate,[place]-Dibasic [Fleet Enema] 133 ml RC PRN PRN 01/10/18 Tamsulosin HCl [Flomax] 0.4 mg PO DAILY 01/10/18 Active Medications Acetaminophen (Ofirmev Injection -) 1,000 mg IVPB Q6H PRN PRN Reason: FEVER Last Admin: 01/11/18 09:30 Dose: 1,000 mg Albuterol/Ipratropium (Duoneb -) 1 amp NEB Q4H PRN PRN Reason: SHORTNESS OF BREATH Last Admin: 01/11/18 11:30 Dose: 1 amp Aspirin (Asa -) 81 mg PO DAILY [facility] Last Admin: 01/11/18 10:15 Dose: 81 mg Atorvastatin Calcium (Lipitor -) 20 mg PO [facility] Divalproex Sodium (Depakote -) 500 mg PO BID [facility] Last Admin: 01/11/18 10:15 Dose: 500 mg Docusate Sodium (Colace -) 100 mg PO TID [facility] Last Admin: 01/11/18 06:11 Dose: Not Given Gabapentin (Neurontin -) 600 mg PO TID [facility] Last Admin: 01/11/18 06:11 Dose: Not Given Heparin Sodium (Porcine) (Heparin -) 5,000 unit SQ TID [facility] Last Admin: 01/11/18 06:11 Dose: 5,000 unit Metronidazole (Flagyl 500mg Premixed Ivpb -) 500 mg in 100 mls @ 100 mls/hr IVPB Q8H-IV [facility] Last Admin: 01/11/18 10:08 Dose: 100 mls/hr Sodium Chloride (1/2 Normal Saline) 1,000 mls @ 80 mls/hr IV ASDIR [facility] Last Admin: 01/11/18 10:04 Dose: 80 mls/hr Sodium Chloride (Normal Saline -) 1,000 mls @ 150 mls/hr IV ASDIR [facility] Piperacillin Sod/Tazobactam (Sod 3.375 gm/ Dextrose) 50 mls @ 100 mls/hr IVPB Q8H-IV [facility]; Protocol Insulin Aspart (Novolog Vial Sliding Scale -) 1 vial SQ ACHS [facility]; Protocol Last Admin: 01/11/18 06:12 Dose: Not Given Metoprolol Tartrate (Lopressor -) 25 mg PO BID [facility] Last Admin: 01/11/18 10:15 Dose: 25 mg Pantoprazole Sodium (Protonix -) 20 mg PO DAILY [facility] Last Admin: 01/11/18 10:15 Dose: 20 mg Ramipril (Altace -) 2.5 mg PO DAILY [facility] Last Admin: 01/11/18 10:15 Dose: 2.5 mg Tamsulosin HCl (Flomax -) 0.4 mg PO DAILY@0830 [facility] Last Admin: 01/11/18 10:15 Dose: 0.4 mg CTAP reviewed: pancreatitis,no pseudocyst, colitis, no obstruction US: contracted GB EKG,A- paced CXR: no obvious infiltrate but diffuse congestive changes PE: Gen: mildly toxic appearing eld man HEENT: non-icteric sclera, no jvp PULM; diffuse exp wheezes, few basilar crackles CV: PPM regular, no m/r/g appreciated, distant ABD: obsese, mildly distended and tender diffusely, + BS EXT: trace edema, 2+ pulses Neuro: follows simple commands, non focal A/ 82 yo man with pancreatitis and colitis P/ -hold depakote, statin, review further medications -repeat Lipase, BMP in afternoon -gentle fluid, closely monitor resp status -NPO for now, start clears in am if abd exam and Lipase improve. -abx for GI/colitis--agree with ceftriaxone and flagyl, stool studies pending -hold Bowel regimen (diarrhea) -cont anti-htn -GI following, appreciate recs -will need to discuss other AE meds once improves -ICU monitoring Lexy ROGEL [id number]
[2018-01-11 12:33] LABS: ALBUMIN 2.3 g/dl (3.4-5.0); BILIRUBIN,DIRECT 0.3 mg/dL (0.0-0.2); SGOT/AST 27 U/L (15-37); SGPT/ALT 16 U/L (12-78)
--- NOTE | 2018-01-11 12:33 | CONS ---
DATE OF CONSULTATION: DATE OF DICTATION: 01/11/2018 REQUESTING PHYSICIAN: Dr. Hubbard HISTORY OF PRESENT ILLNESS: This is an 82-year-old man. He resides at the [facility]. He was sent from the assisted to the emergency room with a 3- day history of poor oral intake, abdominal distension. He apparently had vomiting there, as well. Yesterday, he had fever of 101.6 and was transferred to the emergency room. In the ER, he was noted to have fever as well as leukocytosis and abdominal discomfort. He was sent for CT scan of his abdomen and pelvis and started on IV antibiotics. He got vancomycin and Zosyn. Lactic acid was originally elevated at 2.6 with a white count of 26,000. He had an episode of diarrhea in the emergency room. He was given IV fluids and admitted for further evaluation. He was noted to have an elevated lipase at 677, and CT scan findings were consistent with acute pancreatitis as well as possible colitis. He had a sonogram of his abdomen done that showed a moderate gallbladder contraction. There were no stones. It showed diffuse wall thickening, and there was no ductal dilatation. I was asked to see him for possible sepsis. He is febrile again this morning to 101. PAST MEDICAL HISTORY: Notable for history of hypertension, hyperlipidemia, COPD. He has a history of schizophrenia, as well. He has a history, as well, of diabetes. SURGICAL HISTORY: Notable for pacemaker. SOCIAL HISTORY: Resides at the assisted. No further information is known. ALLERGIES: He has no known drug allergies. MEDICATIONS: At the assisted include aspirin, atorvastatin. He was started on ceftriaxone yesterday, Depakote, Colace, Neurontin, levocetirizine, Glucophage, Lopressor, Singulair, Ramipril, senna, Januvia, and tamsulosin. PHYSICAL EXAMINATION General: He is awake and alert. He is profusely diaphoretic. His clothes are soaked. He is wheezing audibly. He is mildly tachypneic. He is an obese man. Vital signs: His temperature is 101, pulse of 102, blood pressure 157/88, respiratory rate 22, O2 saturation overnight was 96% on 2 L. HEENT: He is normocephalic. His eyes are anicteric. Neck: Supple. He has no thrush or pharyngitis. Lungs: Have crackles at the bases. He has scattered wheezes throughout. Heart: Is tachycardic. Abdomen: Distended. He has diminished bowel sounds. He has diffuse discomfort on palpation. He has no rebound. Extremities: Notable for trace edema with arms and legs. LABORATORY DATA: Labs are notable for admission white count of 26.8, this morning 22.9, hemoglobin 12, platelets are 183. INR is 1.3. On admission, BUN 34, creatinine 2, with a lactic acid 2.6 and AST of 41 and a lipase of 677. This morning creatinine is 1.6. Hemoglobin A1c is 7.2. Cholesterol profile and triglycerides are normal. Urinalysis negative for leukocyte esterase with 4 white cells. Blood cultures and a C. difficile are pending. IMAGING: As previously stated. SUMMARY: This is an 82-year-old man admitted with a 3-day history of poor oral intake, abdominal discomfort, and now with fever with clinical evidence and CT scan finding evidence of pancreatitis, possible colitis, as well. He appears to be in mild respiratory distress with probable volume overload. Will treat him with Ceftriaxone and Flagyl until cultures are back. Stools have been ordered as well including C. difficile and cultures. Blood cultures are pending. He is for transfer to the ICU for monitor his respiratory and volume status. Case was discussed with GI and the primary doctor. CHANTELLE DRAPER M.D. [id number] MTDD
[2018-01-11 12:34] LABS: ALK PHOS 58 U/L (45-117); BILIRUBIN,TOTAL 0.5 mg/dL (0.2-1.0)
[2018-01-11] MEDS ORDERED: DEXTROSE 5%-0.45% SALINE 1,000 ML IV SCH (12:45)
[2018-01-11 14:51] LABS: HEMATOCRIT 35.1 % (35.4-49); HEMOGLOBIN 11.5 GM/dL (11.7-16.9); MCH 30.9 pg (25.7-33.7); MCHC 32.7 g/dl (32.0-35.9); MEAN CELL VOLUME 94.6 fl (80-96); MEAN PLT VOLUME 9.7 fl (7.5-11.1); PLATELET COUNT 198 K/MM3 (134-434); RBC 3.71 M/mm3 (4.00-5.60); WHITE BLOOD COUNT 21.4 K/mm3 (4.0-10.0)
[2018-01-11 15:30] LABS: ANION GAP 5 (8-16); BILIRUBIN,DIRECT 0.2 mg/dL (0.0-0.2); BILIRUBIN,TOTAL 0.3 mg/dL (0.2-1.0); BLOOD UREA NITROGEN 29 mg/dL (7-18); CALCIUM 7.5 mg/dL (8.5-10.1); CHLORIDE 106 mmol/L (98-107); CO2 31 mmol/L (21-32); CREATININE 1.8 mg/dL (0.7-1.3); GLUCOSE,RANDOM 159 mg/dL (74-106); POTASSIUM 4.5 mmol/L (3.5-5.1); SGOT/AST 28 U/L (15-37); SGPT/ALT 17 U/L (12-78); SODIUM 142 mmol/L (136-145); TOT PROT 5.9 g/dl (6.4-8.2)
[2018-01-11 15:31] LABS: LIPASE 382 U/L (73-393)
[2018-01-11 15:33] LABS: ALK PHOS 56 U/L (45-117)
[2018-01-11] MEDS ORDERED: PIPERACILLIN/TAZOBACTAM 3.375 GM VIAL IVPB ONE ×2 (17:07→23:43)
[2018-01-11] MEDS ORDERED: DEXTROSE 5%-WATER - 50 ML IVPB ONE ×2 (17:07→23:43)
[2018-01-11] MEDS: PIPERACILLIN/TAZOB 3.375 GM 3.375 GM in DEXTROSE 5%-WATER - 50 ML IVPB SCH (17:20)
[2018-01-11] MEDS: ATORVASTATIN CA 20 MG TABLET (FP) PO SCH (21:28)
[2018-01-12] MEDS: PIPERACILLIN/TAZOB 3.375 GM 3.375 GM in DEXTROSE 5%-WATER - 50 ML IVPB SCH (01:09)
[2018-01-12] MEDS: ALBUTEROL SO4 2.5/IPRATROPIUM 0.5 INH SOL 3 ML VIAL.NEB. NEB PRN (02:36)
[2018-01-12] MEDS: HEPARIN NA (PORCINE) 5,000 UNITS/ML 1ML VIAL SQ SCH ×3 (05:05→21:02)
[2018-01-12] MEDS: GABAPENTIN 300 MG CAPSULE (FP) PO SCH ×3 (05:05→21:02)
[2018-01-12] MEDS ORDERED: FUROSEMIDE 40 MG/4 ML INJECTABLE VIAL IVPUSH ONE ×2 (05:38→21:37)
[2018-01-12 05:39] LABS: HEMATOCRIT 36.1 % (35.4-49); HEMOGLOBIN 11.7 GM/dL (11.7-16.9); MCH 30.9 pg (25.7-33.7); MCHC 32.5 g/dl (32.0-35.9); MEAN CELL VOLUME 95.1 fl (80-96); MEAN PLT VOLUME 10.4 fl (7.5-11.1); PLATELET COUNT 226 K/MM3 (134-434); WHITE BLOOD COUNT 19.4 K/mm3 (4.0-10.0)
[2018-01-12] MEDS: INSULIN SLIDING SCALE (NOVOLOG) 1 VIAL SQ SCH ×4 (06:09→22:31)
[2018-01-12 06:25] LABS: ALBUMIN 2.2 g/dl (3.4-5.0); ANION GAP 7 (8-16); BLOOD UREA NITROGEN 25 mg/dL (7-18); CALCIUM 7.8 mg/dL (8.5-10.1); CHLORIDE 106 mmol/L (98-107); CO2 30 mmol/L (21-32); CREATININE 1.5 mg/dL (0.7-1.3); GLUCOSE,RANDOM 127 mg/dL (74-106); POTASSIUM 4.4 mmol/L (3.5-5.1); SGOT/AST 24 U/L (15-37); SGPT/ALT 17 U/L (12-78); SODIUM 143 mmol/L (136-145)
[2018-01-12 06:29] LABS: ALK PHOS 63 U/L (45-117); BILIRUBIN,TOTAL 0.5 mg/dL (0.2-1.0); TOT PROT 6.2 g/dl (6.4-8.2)
[2018-01-12 06:30] LABS: ALBUMIN 2.2 g/dl (3.4-5.0); BILIRUBIN,DIRECT 0.3 mg/dL (0.0-0.2); BILIRUBIN,TOTAL 0.5 mg/dL (0.2-1.0); TOT PROT 6.2 g/dl (6.4-8.2)
--- NOTE | 2018-01-12 08:00 | PN ---
Progress Note (short form) - Note Progress Note: still audibly wheezing no diarrhea Vital Signs Period Temp Pulse Resp BP Sys/Quispe Pulse Ox Last 24 Hr 98.5 F-101.0 F 64-102 16-32 108-198/74-94 94-96 cor-rrr lungs bilateral wheezing, basilar crackles abd soft, no rebound, reports discomfort on palpation diffusely ext no edema CBC, BMP 01/12/18 05:30 01/12/18 05:30 Microbiology 01/10/18 15:26 Blood - Peripheral Venous Blood Culture - Preliminary NO GROWTH OBTAINED AFTER 24 HOURS, INCUBATION TO CONTINUE FOR 4 DAYS. 01/10/18 15:26 Blood - Peripheral Venous Blood Culture - Preliminary NO GROWTH OBTAINED AFTER 24 HOURS, INCUBATION TO CONTINUE FOR 4 DAYS. 01/10/18 18:21 Stool Clostridium difficile Antigen (CARMEN) - Final-negative 01/10/18 18:21 Stool Clostridium difficile Toxin Assay - Final-negative cxray cardiomegaly, congestion a/p sepsis Pancreatitis ?colitis FRANCISCO-improved continue rocephin/flagyl f/u cultures Problem List - Problems (1) Sepsis Code(s): A41.9 - SEPSIS, UNSPECIFIED ORGANISM (2) Pancreatitis Code(s): K85.90 - ACUTE PANCREATITIS WITHOUT NECROSIS OR INFECTION, UNSP Qualifiers: Chronicity: acute Pancreatitis type: unspecified pancreatitis type Acute pancreatitis complication: unspecified Qualified Code(s): K85.90 - Acute pancreatitis without necrosis or infection, unspecified (3) Colitis Code(s): K52.9 - NONINFECTIVE GASTROENTERITIS AND COLITIS, UNSPECIFIED (4) Volume overload Code(s): E87.70 - FLUID OVERLOAD, UNSPECIFIED (5) FRANCISCO (acute kidney injury) Code(s): N17.9 - ACUTE KIDNEY FAILURE, UNSPECIFIED
--- NOTE | 2018-01-12 08:43 | PN ---
Progress Note (short form) - Note Progress Note: Pulm/CCM Pt seen and examined in ICU 24Hr: -short of breath with + volume balance, lasix this am -Lipase down then back up a bit, still no abd pain -Cr downtrending Vital Signs Temp 99.2 F 01/12/18 06:00 Pulse 81 01/12/18 08:00 Resp 24 01/12/18 08:00 BP 174/84 01/12/18 08:00 Pulse Ox 96 01/11/18 21:00 Intake & Output 01/11/18 01/11/18 01/12/18 11:59 23:59 11:59 Intake Total 100 1095 1710 Balance 100 1095 1710 Weight 115.349 kg 116.664 kg Intake: IV 945 1500 1/2 Normal Saline 1,261 209 5944 ml @ 150 mls/hr IV ASDIR ANTONINO Rx#:[id number] IVPB 100 150 150 Oral 60 Other: Voiding Method Incontinent Incontinent Incontinent # Unmeasured Voids Void 3 2 2 Bowel Movement Yes No Yes Weight Measurement Method Built in [facility] CBC, BMP 01/12/18 05:30 01/12/18 05:30 PE: Gen: mildy dyspneic man HEENT: non-icteric sclera, no jvp PULM; diffuse exp wheezes, basilar crackles CV: PPM regular, no m/r/g appreciated, distant ABD: obsese, mildly distended and tender diffusely, + BS EXT: trace edema, 2+ pulses Neuro: awake alert A/ 82 yo man with pancreatitis and colitis, suspect infectious vs medication P/ -hold depakote, statin, review further medications -trend lipase -hold further fluid -clears today -abx for GI/colitis--agree with ceftriaxone and flagyl, stool studies negative so far -hold Bowel regimen (diarrhea) -cont anti-htn, restart as BP commands -GI following, appreciate recs -will need to discuss other AE meds once improves -ok for floor today Delano Pugh [id number]
[2018-01-12] MEDS ORDERED: DEXTROSE 5%-WATER 100 ML IVPB ONE (08:47)
[2018-01-12] MEDS: TAMSULOSIN HCL 0.4 MG CAP.ER.24H (FP) PO SCH (08:55)
[2018-01-12] MEDS: PANTOPRAZOLE 20 MG TABLET (FP) PO SCH (09:00)
[2018-01-12] MEDS: METOPROLOL TARTRATE 25 MG TABLET (FP) PO SCH ×2 (09:00→21:02)
[2018-01-12] MEDS: ASPIRIN 81 MG CHEWABLE TABLETS PO SCH (09:00)
[2018-01-12] MEDS: RAMIPRIL 2.5 MG CAPSULE (FP) PO SCH (09:00)
[2018-01-12] MEDS: CEFTRIAXONE 2 GM in DEXTROSE 5%-WATER 100 ML IVPB SCH (09:01)
--- NOTE | 2018-01-12 10:12 | PN ---
GI Progress Note Subjective: No acute events The NS order had been changed to 1/2 NS when he came to ICU yesterday - Objective Vital Signs: Vital Signs Temperature 99.2 F 01/12/18 06:00 Pulse Rate 81 01/12/18 08:00 Respiratory Rate 24 01/12/18 08:00 Blood Pressure 174/84 01/12/18 08:00 O2 Sat by Pulse Oximetry (%) 96 01/11/18 21:00 Constitutional: Calm Cardiovascular: Yes: Regular Rate and Rhythm Respiratory: Yes: Diminished (at bases b/l) Gastrointestinal Inspection: No: Distention ...Auscultate: Yes: Normoactive Bowel Sounds ...Palpate: No: Hepatomegaly, Splenomegaly, Tenderness ...Percussion: No: Tympanitic Neurological: Yes: Alert Labs: CBC, BMP 01/12/18 05:30 01/12/18 05:30 INR, PTT INR 1.38 (0.82-1.09) H 01/10/18 15:25 Hepatic Panel Total Bilirubin 0.5 mg/dL (0.2-1.0) 01/12/18 05:30 Direct Bilirubin 0.3 mg/dL (0.0-0.2) H D 01/12/18 05:30 AST 25 U/L (15-37) 01/12/18 05:30 ALT 16 U/L (12-78) 01/12/18 05:30 Alkaline Phosphatase 62 U/L (45-117) 01/12/18 05:30 Albumin 2.2 g/dl (3.4-5.0) L 01/12/18 05:30 Problem List - Problems (1) Pancreatitis Assessment/Plan: Clinically improved, continued significant leukocytosis I suspect that the colitis and GB wall thickening noted on CT scan was secondary to pancreatic inflammatory process Continue IV hydration Trial of clear liquids Code(s): K85.90 - ACUTE PANCREATITIS WITHOUT NECROSIS OR INFECTION, UNSP Qualifiers: Chronicity: acute Pancreatitis type: unspecified pancreatitis type Acute pancreatitis complication: unspecified Qualified Code(s): K85.90 - Acute pancreatitis without necrosis or infection, unspecified
--- NOTE | 2018-01-12 10:27 | PN ---
Progress Note, Physician Chief Complaint: Events noted Remains in ICU History of Present Illness: Patient was seen and examined. Awake and alert. Chart was reviewed Denies abdominal pain No Chest pain or SOB - Current Medication List Current Medications: Active Medications Acetaminophen (Ofirmev Injection -) 1,000 mg IVPB Q6H PRN PRN Reason: FEVER Last Admin: 01/11/18 09:30 Dose: 1,000 mg Albuterol/Ipratropium (Duoneb -) 1 amp NEB Q4H PRN PRN Reason: SHORTNESS OF BREATH Last Admin: 01/12/18 02:36 Dose: 1 amp Aspirin (Asa -) 81 mg PO DAILY [facility] Last Admin: 01/12/18 09:00 Dose: 81 mg Atorvastatin Calcium (Lipitor -) 20 mg PO HS ANTONINO Last Admin: 01/11/18 21:28 Dose: 20 mg Gabapentin (Neurontin -) 600 mg PO TID ANTONINO Last Admin: 01/12/18 05:05 Dose: 600 mg Heparin Sodium (Porcine) (Heparin -) 5,000 unit SQ TID ANTONINO Last Admin: 01/12/18 05:05 Dose: 5,000 unit Metronidazole (Flagyl 500mg Premixed Ivpb -) 500 mg in 100 mls @ 100 mls/hr IVPB Q8H-IV ANTONINO Last Admin: 01/12/18 09:02 Dose: 100 mls/hr Ceftriaxone Sodium 2 gm/ (Dextrose) 100 mls @ 200 mls/hr IVPB DAILY [facility]; Protocol Last Admin: 01/12/18 09:01 Dose: 200 mls/hr Sodium Chloride (Normal Saline -) 1,000 mls @ 100 mls/hr IV ASDIR ANTONINO Insulin Aspart (Novolog Vial Sliding Scale -) 1 vial SQ Q6H [facility]; Protocol Last Admin: 01/12/18 06:09 Dose: Not Given Metoprolol Tartrate (Lopressor -) 25 mg PO BID [facility] Last Admin: 01/12/18 09:00 Dose: 25 mg Pantoprazole Sodium (Protonix -) 20 mg PO DAILY [facility] Last Admin: 01/12/18 09:00 Dose: 20 mg Ramipril (Altace -) 2.5 mg PO DAILY [facility] Last Admin: 01/12/18 09:00 Dose: 2.5 mg Tamsulosin HCl (Flomax -) 0.4 mg PO DAILY@0830 [facility] Last Admin: 01/12/18 08:55 Dose: 0.4 mg - Objective Vital Signs: Vital Signs Temperature 99.2 F 01/12/18 06:00 Pulse Rate 81 01/12/18 08:00 Respiratory Rate 24 01/12/18 08:00 Blood Pressure 174/84 01/12/18 08:00 O2 Sat by Pulse Oximetry (%) 96 01/11/18 21:00 Neck: Yes: Supple Cardiovascular: Yes: Regular Rate and Rhythm, Murmur (Soft SM), S1, S2 Respiratory: Yes: Diminished Gastrointestinal: Yes: Normal Bowel Sounds, Soft Edema: No Additional Findings/Remarks: ROS HEENT: denies: headache, photophobia, blurring of vision CARD: denies: chest pain, SOB or palpitations RESP: denies: cough, sputum production, hemoptysis ABD: denies: nausea, vomiting, diarrhea, abdominal pain, melena, hematemesis MUSC: denies: joint pains NEURO: denies: headache, lightheadedness Labs: CBC, BMP 01/12/18 05:30 01/12/18 05:30 INR, PTT INR 1.38 (0.82-1.09) H 01/10/18 15:25 Problem List - Problems (1) Pacemaker Code(s): Z95.0 - PRESENCE OF CARDIAC PACEMAKER (2) FRANCISCO (acute kidney injury) Code(s): N17.9 - ACUTE KIDNEY FAILURE, UNSPECIFIED (3) Pancreatitis Code(s): K85.90 - ACUTE PANCREATITIS WITHOUT NECROSIS OR INFECTION, UNSP Qualifiers: Chronicity: acute Pancreatitis type: unspecified pancreatitis type Acute pancreatitis complication: unspecified Qualified Code(s): K85.90 - Acute pancreatitis without necrosis or infection, unspecified (4) Sepsis Code(s): A41.9 - SEPSIS, UNSPECIFIED ORGANISM Assessment/Plan 1. Acute pancreatitis 2. Sepsis 3. Demand ischemia 4. Acute kidney injury improving 5. s/p PPM PLAN: 1. Bowel rest, IVF, antibiotics, trend lactate, amylase, lipase and f/u stool studies 2. Trend troponin to document peak 3. Interrogate PPM 4. Echocardiogram to assess LV/RV and valvular function 5. DVT and GI prophylaxis 6. Continue Lopressor 25 bid, ASA 81 qd, Lipitor 20 qd and Ramipril 2.5 qd with monitor renal recovery Further plans are to follow Edinson Cole MD
--- NOTE | 2018-01-12 10:27 | PN ---
Progress Note, Physician Chief Complaint: patient examined in ICU He still has pain in the abdomen He is more awake Denies any nausea - Current Medication List Current Medications: Active Medications Acetaminophen (Ofirmev Injection -) 1,000 mg IVPB Q6H PRN PRN Reason: FEVER Last Admin: 01/11/18 09:30 Dose: 1,000 mg Albuterol/Ipratropium (Duoneb -) 1 amp NEB Q4H PRN PRN Reason: SHORTNESS OF BREATH Last Admin: 01/12/18 02:36 Dose: 1 amp Aspirin (Asa -) 81 mg PO DAILY [facility] Last Admin: 01/12/18 09:00 Dose: 81 mg Atorvastatin Calcium (Lipitor -) 20 mg PO HS ANTONINO Last Admin: 01/11/18 21:28 Dose: 20 mg Gabapentin (Neurontin -) 600 mg PO TID [facility] Last Admin: 01/12/18 05:05 Dose: 600 mg Heparin Sodium (Porcine) (Heparin -) 5,000 unit SQ TID ANTONINO Last Admin: 01/12/18 05:05 Dose: 5,000 unit Metronidazole (Flagyl 500mg Premixed Ivpb -) 500 mg in 100 mls @ 100 mls/hr IVPB Q8H-IV ANTONINO Last Admin: 01/12/18 09:02 Dose: 100 mls/hr Ceftriaxone Sodium 2 gm/ (Dextrose) 100 mls @ 200 mls/hr IVPB DAILY [facility]; Protocol Last Admin: 01/12/18 09:01 Dose: 200 mls/hr Sodium Chloride (Normal Saline -) 1,000 mls @ 100 mls/hr IV ASDIR [facility] Insulin Aspart (Novolog Vial Sliding Scale -) 1 vial SQ Q6H [facility]; Protocol Last Admin: 01/12/18 06:09 Dose: Not Given Metoprolol Tartrate (Lopressor -) 25 mg PO BID [facility] Last Admin: 01/12/18 09:00 Dose: 25 mg Pantoprazole Sodium (Protonix -) 20 mg PO DAILY [facility] Last Admin: 01/12/18 09:00 Dose: 20 mg Ramipril (Altace -) 2.5 mg PO DAILY [facility] Last Admin: 01/12/18 09:00 Dose: 2.5 mg Tamsulosin HCl (Flomax -) 0.4 mg PO DAILY@0830 [facility] Last Admin: 01/12/18 08:55 Dose: 0.4 mg - Objective Vital Signs: Vital Signs Temperature 99.2 F 01/12/18 06:00 Pulse Rate 81 01/12/18 08:00 Respiratory Rate 24 01/12/18 08:00 Blood Pressure 174/84 01/12/18 08:00 O2 Sat by Pulse Oximetry (%) 96 01/11/18 21:00 Constitutional: Yes: No Distress, Calm Cardiovascular: Yes: Regular Rate and Rhythm Respiratory: Yes: Diminished Gastrointestinal: Yes: Normal Bowel Sounds, Soft, Abdomen, Obese, Tenderness Edema: No Labs: CBC, BMP 01/12/18 05:30 01/12/18 05:30 INR, PTT INR 1.38 (0.82-1.09) H 01/10/18 15:25 Problem List - Problems (1) FRANCISCO (acute kidney injury) Code(s): N17.9 - ACUTE KIDNEY FAILURE, UNSPECIFIED (2) Colitis Code(s): K52.9 - NONINFECTIVE GASTROENTERITIS AND COLITIS, UNSPECIFIED (3) Sepsis Code(s): A41.9 - SEPSIS, UNSPECIFIED ORGANISM (4) Severe sepsis Code(s): A41.9 - SEPSIS, UNSPECIFIED ORGANISM; R65.20 - SEVERE SEPSIS WITHOUT SEPTIC SHOCK (5) Volume overload Code(s): E87.70 - FLUID OVERLOAD, UNSPECIFIED Assessment/Plan PLAN Pancreatitis ARDS- impending Sepsis - IV Fluids -- iv antibiotics -- cultures drawn -- spoke with ID and GI -- nebs and O2 -- CXR noted
[2018-01-12] MEDS: SODIUM CHLORIDE 1,000 ML IV SCH (11:00)
[2018-01-12 13:48] VITALS: BMI 42.7
[2018-01-12] MEDS: ATORVASTATIN CA 20 MG TABLET (FP) PO SCH (21:02)
[2018-01-12] MEDS ORDERED: ALBUTEROL SO4 2.5/IPRATROPIUM 0.5 INH SOL 3 ML VIAL.NEB. NEB ONE (21:37)
[2018-01-12] MEDS ORDERED: FUROSEMIDE 40 MG/4 ML INJECTABLE VIAL ONE (21:42)
--- NOTE | 2018-01-12 21:48 | PN ---
Progress Note (short form) - Note Progress Note: pt seen and examined. Pt was admitted for acute pancreatitis day 3 and colitis . Source likely meds. CT scan shows acute pancreatitis with colitis of splenic flexor and descending colon. Colitis can occur because of acute pancreatitis. Generally Transverse colon colitis and splenic flexor colitis is common with acute pancreatitis but descending can also occur. WBC can be elevated because of SIRS/ colitis, trending down. afebrile. on ceftriaxone and metronidazole. BISAP score 1-2. creatinine improving, don't know his base line. Pt had decrese in spo2 79%. BP SD 80 Chest - On auscultation has diffuse crackels and wheezing. abd - soft, non tender, no guarding, no rigidity. cvs s1s2 normal. Pt got duoneb, even after duoneb has persistent wheez and crackels. CXR ordered , previous cxr shows congestion. Plan give duoneb, lasix 40 iv push and solumedrol one time. Hold fluid for now, although pt of acute pancreatitis has loss of fluid in third space but currently pt is short of breath and pancreatitis is clinically improving. Pt is accepting po intake without pain. will put rios cath for proper I/O monitoring. If urine output goes below 0.5ml/kg/hr we will put him back on IV fluid Lactate ringer. monitor blood glucose sr ca, sr creatnine. antibiotics as per id symbicort bid
[2018-01-12] MEDS ORDERED: HYDROCORTISONE SOD SUCCINATE 2 ML ONE (22:02)
[2018-01-12] MEDS ORDERED: methylPREDNISolone NA SUCC 125 MG/2 ML VIAL IVPUSH ONE (22:03)
[2018-01-12] MEDS ORDERED: methylPREDNISolone NA SUCC 125 MG/2 ML VIAL IVPUSH SCH (22:03)
[2018-01-12] MEDS: BUDESONIDE/FORMETEROL FUMARATE 160/4.5 mcg INHALER IH SCH (22:31)
[2018-01-13] MEDS: GABAPENTIN 300 MG CAPSULE (FP) PO SCH ×3 (06:03→21:16)
[2018-01-13] MEDS ORDERED: LIDOCAINE HCL 2% JELLY (5 ML/TUBE) TP ONE (06:03)
[2018-01-13] MEDS: HEPARIN NA (PORCINE) 5,000 UNITS/ML 1ML VIAL SQ SCH ×3 (06:03→21:16)
[2018-01-13] MEDS: INSULIN SLIDING SCALE (NOVOLOG) 1 VIAL SQ SCH ×3 (06:04→16:48)
[2018-01-13 07:18] LABS: BASO % 0.1 % (0-2.0); EOS % 0.2 % (0-4.5); HEMATOCRIT 35.7 % (35.4-49); HEMOGLOBIN 11.7 GM/dL (11.7-16.9); LYMPH % 3.9 % (8-40); MCH 31.1 pg (25.7-33.7); MCHC 32.8 g/dl (32.0-35.9); MEAN CELL VOLUME 94.7 fl (80-96); MEAN PLT VOLUME 10.2 fl (7.5-11.1); MONO % 8.5 % (3.8-10.2); NEUT % 87.3 % (42.8-82.8); PLATELET COUNT 222 K/MM3 (134-434); RBC 3.76 M/mm3 (4.00-5.60); RDW 15.1 % (11.9-15.9); WHITE BLOOD COUNT 17.7 K/mm3 (4.0-10.0)
[2018-01-13 07:33] LABS: ALBUMIN 2.1 g/dl (3.4-5.0); ANION GAP 7 (8-16); BLOOD UREA NITROGEN 24 mg/dL (7-18); CALCIUM 8.1 mg/dL (8.5-10.1); CHLORIDE 106 mmol/L (98-107); CO2 31 mmol/L (21-32); GLUCOSE,RANDOM 195 mg/dL (74-106); POTASSIUM 4.4 mmol/L (3.5-5.1); SODIUM 144 mmol/L (136-145)
[2018-01-13 07:37] LABS: BILIRUBIN,TOTAL 0.4 mg/dL (0.2-1.0); CREATININE 1.3 mg/dL (0.7-1.3); SGOT/AST 25 U/L (15-37); SGPT/ALT 17 U/L (12-78); TOT PROT 6.2 g/dl (6.4-8.2)
[2018-01-13 07:38] LABS: ALK PHOS 71 U/L (45-117)
[2018-01-13] MEDS: TAMSULOSIN HCL 0.4 MG CAP.ER.24H (FP) PO SCH (08:27)
[2018-01-13] MEDS ORDERED: DEXTROSE 5%-WATER 100 ML IVPB ONE (09:21)
[2018-01-13] MEDS: RAMIPRIL 2.5 MG CAPSULE (FP) PO SCH (09:27)
[2018-01-13] MEDS: METOPROLOL TARTRATE 25 MG TABLET (FP) PO SCH ×2 (09:28→21:16)
[2018-01-13] MEDS: ASPIRIN 81 MG CHEWABLE TABLETS PO SCH (09:28)
[2018-01-13] MEDS: PANTOPRAZOLE 20 MG TABLET (FP) PO SCH (09:28)
[2018-01-13] MEDS: CEFTRIAXONE 2 GM in DEXTROSE 5%-WATER 100 ML IVPB SCH (09:29)
[2018-01-13] MEDS: SODIUM CHLORIDE 1,000 ML IV SCH (09:29)
[2018-01-13] MEDS ORDERED: methylPREDNISolone NA SUCC 125 MG/2 ML VIAL IVPUSH SCH (10:00)
[2018-01-13] MEDS: BUDESONIDE/FORMETEROL FUMARATE 160/4.5 mcg INHALER IH SCH ×2 (10:10→21:17)
--- NOTE | 2018-01-13 10:39 | PN ---
Teaching Attending Note Name of Resident: Joby Edmond ATTENDING PHYSICIAN STATEMENT I saw and evaluated the patient. I reviewed the resident's note and discussed the case with the resident. I agree with the resident's findings and plan as documented. SUBJECTIVE: Patient seen and examined in ICU. Awake and responsive. Reports discomfort at the rios site. Does not report SOB, but mildly tachypneic at rest. No pressors. Tolerating clears. Intake & Output 01/10/18 01/11/18 01/12/18 01/13/18 23:59 23:59 23:59 23:59 Intake Total 1195 3100 300 Output Total 1000 Balance 1195 3100 -700 Weight 263 lb 254 lb 4.8 oz 257 lb 258 lb 12.8 oz Last Vital Signs Temp Pulse Resp BP Pulse Ox 98.7 F 71 20 139/83 98 01/13/18 08:00 01/13/18 08:00 01/13/18 08:00 01/13/18 08:00 01/13/18 09:00 Active Medications Acetaminophen (Ofirmev Injection -) 1,000 mg IVPB Q6H PRN PRN Reason: FEVER Last Admin: 01/11/18 09:30 Dose: 1,000 mg Albuterol/Ipratropium (Duoneb -) 1 amp NEB Q4H PRN PRN Reason: SHORTNESS OF BREATH Last Admin: 01/12/18 02:36 Dose: 1 amp Aspirin (Asa -) 81 mg PO DAILY [facility] Last Admin: 01/13/18 09:28 Dose: 81 mg Atorvastatin Calcium (Lipitor -) 20 mg PO HS ANTONINO Last Admin: 01/12/18 21:02 Dose: 20 mg Budesonide/Formoterol Fumarate (Symbicort 160/4.5mcg -) 2 puff IH BID ANTONINO Last Admin: 01/12/18 22:31 Dose: 2 puff Gabapentin (Neurontin -) 600 mg PO TID ANTONINO Last Admin: 01/13/18 06:03 Dose: 600 mg Heparin Sodium (Porcine) (Heparin -) 5,000 unit SQ TID AN[facility]INO Last Admin: 01/13/18 06:03 Dose: 5,000 unit Metronidazole (Flagyl 500mg Premixed Ivpb -) 500 mg in 100 mls @ 100 mls/hr IVPB Q8H-IV AN[facility]INO Last Admin: 01/13/18 02:00 Dose: 100 mls/hr Ceftriaxone Sodium 2 gm/ (Dextrose) 100 mls @ 200 mls/hr IVPB DAILY [facility]; Protocol Last Admin: 01/13/18 09:29 Dose: 200 mls/hr Sodium Chloride (Normal Saline -) 1,000 mls @ 100 mls/hr IV ASDIR [facility] Last Admin: 01/13/18 09:29 Dose: Not Given Insulin Aspart (Novolog Vial Sliding Scale -) 1 vial SQ Q6H [facility]; Protocol Last Admin: 01/13/18 06:04 Dose: 4 units Metoprolol Tartrate (Lopressor -) 25 mg PO BID [facility] Last Admin: 01/13/18 09:28 Dose: 25 mg Pantoprazole Sodium (Protonix -) 20 mg PO DAILY [facility] Last Admin: 01/13/18 09:28 Dose: 20 mg Ramipril (Altace -) 2.5 mg PO DAILY [facility] Last Admin: 01/13/18 09:27 Dose: 2.5 mg Tamsulosin HCl (Flomax -) 0.4 mg PO DAILY@0830 [facility] Last Admin: 01/13/18 08:27 Dose: 0.4 mg PE: Gen: awake and responsive, mildly tachyneiuc at rest HEENT: non-icteric sclera, (-) JVD PULM: scattered bilateral rhonchi CV: regular, (-) murmur ABD: obese, mildly distended, non-tender, (+) BS EXT: trace edema, 2+ pulses Neuro: awake, alert, non-focal Laboratory Results - last 24 hr 01/11/18 01/12/18 01/12/18 21:19 05:25 05:30 WBC RBC Hgb Hct MCV MCH MCHC RDW Plt Count MPV Absolute Neuts (auto) Neutrophils % Lymphocytes % Monocytes % Eosinophils % Basophils % Nucleated RBC % Sodium Potassium Chloride Carbon Dioxide Anion Gap BUN Creatinine Creat Clearance w eGFR POC Glucometer 145.73151 145.13069 Random Glucose Calcium Total Bilirubin AST ALT Alkaline Phosphatase Creatine Kinase Index 0.6 CK-MB (CK-2) 1.43 Total Protein Albumin 01/12/18 01/12/18 01/12/18 13:03 17:16 21:35 WBC RBC Hgb Hct MCV MCH MCHC RDW Plt Count MPV Absolute Neuts (auto) Neutrophils % Lymphocytes % Monocytes % Eosinophils % Basophils % Nucleated RBC % Sodium Potassium Chloride Carbon Dioxide Anion Gap BUN Creatinine Creat Clearance w eGFR POC Glucometer 204.39573 190.57211 230.58875 Random Glucose Calcium Total Bilirubin AST ALT Alkaline Phosphatase Creatine Kinase Index CK-MB (CK-2) Total Protein Albumin 01/13/18 01/13/18 01/13/18 06:03 06:56 06:56 WBC 17.7 H RBC 3.76 L Hgb 11.7 Hct 35.7 MCV 94.7 MCH 31.1 MCHC 32.8 RDW 15.1 Plt Count 222 MPV 10.2 Absolute Neuts (auto) 15.4 Neutrophils % 87.3 H Lymphocytes % 3.9 L D Monocytes % 8.5 Eosinophils % 0.2 D Basophils % 0.1 Nucleated RBC % 0 Sodium 144 Potassium 4.4 Chloride 106 Carbon Dioxide 31 Anion Gap 7 L BUN 24 H Creatinine 1.3 Creat Clearance w eGFR 53.12 POC Glucometer [phone] Random Glucose 195 H D Calcium 8.1 L Total Bilirubin 0.4 AST 25 ALT 17 Alkaline Phosphatase 71 Creatine Kinase Index CK-MB (CK-2) Total Protein 6.2 L Albumin 2.1 L IMP: Acute pancreatitis Acute colitis Leukocytosis Dementia Demand Ischemia PLAN: Advance PO per GI O2 as needed Monitor off IVF Daily assessment for Lasix D/C gabriel Will need to re-introduce AED at some point VTE prophylaxis Cardiac Telemetry monitoring Dr Lujan Critical care time spent in reviewing chart, evaluating patient and formulating plan - 36 minutes.
--- NOTE | 2018-01-13 10:47 | EKG ---
Test Reason : Blood Pressure : / mmHG Vent. Rate : 091 BPM Atrial Rate : 091 BPM P-R Int : 160 ms QRS Dur : 126 ms QT Int : 376 ms P-R-T Axes : 007 -43 -16 degrees QTc Int : 462 ms Atrial-paced rhythm LEFT AXIS DEVIATION RIGHT BUNDLE BRANCH BLOCK ABNORMAL ECG NO PREVIOUS ECGS AVAILABLE Confirmed by SHERRIE ZHU MD ([id number]) on 01/13/2018 10:47:17 AM Referred By: Confirmed By:SHERRIE ZHU MD
[2018-01-13] MEDS: ALBUTEROL SO4 2.5/IPRATROPIUM 0.5 INH SOL 3 ML VIAL.NEB. NEB PRN ×3 (10:49→21:00)
--- NOTE | 2018-01-13 11:09 | PN ---
Progress Note (short form) - Note Progress Note: awake and alert rios out less dyspneic Vital Signs Period Temp Pulse Resp BP Sys/Quispe Pulse Ox Last 24 Hr 97.8 F-98.7 F 60-81 16-22 106-161/56-92 96-98 cor-rrr lungs bilateral rhonchi abd soft,nt ext trace edema CBC, BMP 01/13/18 06:56 01/13/18 06:56 Microbiology 01/10/18 15:26 Blood - Peripheral Venous Blood Culture - Preliminary NO GROWTH OBTAINED AFTER 48 HOURS, INCUBATION TO CONTINUE FOR 3 DAYS. 01/10/18 15:26 Blood - Peripheral Venous Blood Culture - Preliminary NO GROWTH OBTAINED AFTER 48 HOURS, INCUBATION TO CONTINUE FOR 3 DAYS. 01/10/18 18:21 Stool Salmonella/Shigella Culture - Preliminary NO ENTERIC PATHOGENS, 24 HOURS, ON PRIMARY PLATES 01/10/18 18:21 Stool Yersinia Culture - Preliminary NO ENTERIC PATHOGENS, 24 HOURS, ON PRIMARY PLATES 01/10/18 18:21 Stool Vibrio Culture - Preliminary NO ENTERIC PATHOGENS, 24 HOURS, ON PRIMARY PLATES 01/10/18 18:21 Stool Escherichia coli 0157 Culture - Preliminary NO ENTERIC PATHOGENS, 24 HOURS, ON PRIMARY PLATES 01/10/18 16:00 Urine - Urine Rios Urine Culture - Final NO GROWTH OBTAINED 01/10/18 18:21 Stool Clostridium difficile Antigen (CARMEN) - Final 01/10/18 18:21 Stool Clostridium difficile Toxin Assay - Final cxray cardiomegaly, congestion a/p sepsis Pancreatitis colitis FRANCISCO-improved continue rocephin/flagyl day #3 cllinically improved Problem List - Problems (1) Sepsis Code(s): A41.9 - SEPSIS, UNSPECIFIED ORGANISM (2) Pancreatitis Code(s): K85.90 - ACUTE PANCREATITIS WITHOUT NECROSIS OR INFECTION, UNSP Qualifiers: Chronicity: acute Pancreatitis type: unspecified pancreatitis type Acute pancreatitis complication: unspecified Qualified Code(s): K85.90 - Acute pancreatitis without necrosis or infection, unspecified (3) Colitis Code(s): K52.9 - NONINFECTIVE GASTROENTERITIS AND COLITIS, UNSPECIFIED (4) Volume overload Code(s): E87.70 - FLUID OVERLOAD, UNSPECIFIED (5) FRANCISCO (acute kidney injury) Code(s): N17.9 - ACUTE KIDNEY FAILURE, UNSPECIFIED
--- NOTE | 2018-01-13 11:21 | PN ---
Progress Note, Physician Chief Complaint: Events noted Remains in ICU History of Present Illness: Patient was seen and examined. Awake and alert. Chart was reviewed Denies abdominal pain No Chest pain or SOB - Current Medication List Current Medications: Active Medications Acetaminophen (Ofirmev Injection -) 1,000 mg IVPB Q6H PRN PRN Reason: FEVER Last Admin: 01/11/18 09:30 Dose: 1,000 mg Albuterol/Ipratropium (Duoneb -) 1 amp NEB Q4H PRN PRN Reason: SHORTNESS OF BREATH Last Admin: 01/13/18 10:49 Dose: 1 amp Aspirin (Asa -) 81 mg PO DAILY [facility] Last Admin: 01/13/18 09:28 Dose: 81 mg Atorvastatin Calcium (Lipitor -) 20 mg PO HS [facility] Last Admin: 01/12/18 21:02 Dose: 20 mg Budesonide/Formoterol Fumarate (Symbicort 160/4.5mcg -) 2 puff IH BID [facility] Last Admin: 01/13/18 10:10 Dose: 2 puff Gabapentin (Neurontin -) 600 mg PO TID [facility] Last Admin: 01/13/18 06:03 Dose: 600 mg Heparin Sodium (Porcine) (Heparin -) 5,000 unit SQ TID [facility] Last Admin: 01/13/18 06:03 Dose: 5,000 unit Metronidazole (Flagyl 500mg Premixed Ivpb -) 500 mg in 100 mls @ 100 mls/hr IVPB Q8H-IV [facility] Last Admin: 01/13/18 10:32 Dose: 100 mls/hr Ceftriaxone Sodium 2 gm/ (Dextrose) 100 mls @ 200 mls/hr IVPB DAILY [facility]; Protocol Last Admin: 01/13/18 09:29 Dose: 200 mls/hr Sodium Chloride (Normal Saline -) 1,000 mls @ 100 mls/hr IV ASDIR [facility] Last Admin: 01/13/18 09:29 Dose: Not Given Insulin Aspart (Novolog Vial Sliding Scale -) 1 vial SQ Q6H [facility]; Protocol Last Admin: 01/13/18 06:04 Dose: 4 units Metoprolol Tartrate (Lopressor -) 25 mg PO BID [facility] Last Admin: 01/13/18 09:28 Dose: 25 mg Pantoprazole Sodium (Protonix -) 20 mg PO DAILY [facility] Last Admin: 01/13/18 09:28 Dose: 20 mg Ramipril (Altace -) 2.5 mg PO DAILY [facility] Last Admin: 01/13/18 09:27 Dose: 2.5 mg Tamsulosin HCl (Flomax -) 0.4 mg PO DAILY@0830 [facility] Last Admin: 01/13/18 08:27 Dose: 0.4 mg - Objective Vital Signs: Vital Signs Temperature 98.6 F 01/13/18 10:43 Pulse Rate 77 01/13/18 10:43 Respiratory Rate 20 01/13/18 10:43 Blood Pressure 113/67 01/13/18 10:43 O2 Sat by Pulse Oximetry (%) 98 01/13/18 10:00 Eyes: Yes: PERRL HENT: Yes: Atraumatic Neck: Yes: Supple Cardiovascular: Yes: Regular Rate and Rhythm, S1, S2 Respiratory: Yes: Diminished Gastrointestinal: Yes: Soft, Abdomen, Obese. No: Tenderness Edema: No Additional Findings/Remarks: ROS HEENT: denies: headache, photophobia, blurring of vision CARD: denies: chest pain, SOB or palpitations RESP: denies: cough, sputum production, hemoptysis ABD: denies: nausea, vomiting, diarrhea, abdominal pain, melena, hematemesis MUSC: denies: joint pains NEURO: denies: headache, lightheadedness Labs: CBC, BMP 01/13/18 06:56 01/13/18 06:56 Problem List - Problems (1) Pacemaker Code(s): Z95.0 - PRESENCE OF CARDIAC PACEMAKER (2) FRANCISCO (acute kidney injury) Code(s): N17.9 - ACUTE KIDNEY FAILURE, UNSPECIFIED (3) Pancreatitis Code(s): K85.90 - ACUTE PANCREATITIS WITHOUT NECROSIS OR INFECTION, UNSP Qualifiers: Chronicity: acute Pancreatitis type: unspecified pancreatitis type Acute pancreatitis complication: unspecified Qualified Code(s): K85.90 - Acute pancreatitis without necrosis or infection, unspecified (4) Sepsis Code(s): A41.9 - SEPSIS, UNSPECIFIED ORGANISM Assessment/Plan 1. Acute pancreatitis 2. Sepsis 3. Demand ischemia 4. Acute kidney injury improving 5. S/P PPM PLAN: 1. Bowel rest, IVF, antibiotics, trend lactate, amylase, lipase 2. Trend troponin to document peak 3. Interrogate PPM 4. Echocardiogram to assess LV/RV and valvular function - being done today 5. DVT and GI prophylaxis 6. Continue Lopressor 25 bid, ASA 81 qd, Lipitor 20 qd and Ramipril 2.5 qd with monitor renal recovery Further plans are to follow Edinson Cole MD
--- NOTE | 2018-01-13 11:50 | PN ---
Progress Note (short form) - Note Progress Note: pt seen/ examined in icu chart reviewed awake. Comfortable Vital Signs Temp 98.6 F 01/13/18 10:43 Pulse 77 01/13/18 10:43 Resp 20 01/13/18 10:43 BP 113/67 01/13/18 10:43 Pulse Ox 98 01/13/18 10:00 Intake & Output 01/12/18 01/12/18 01/13/18 11:59 23:59 11:59 Intake Total 1710 1390 300 Output Total 1000 Balance 1710 1390 -700 Weight 257 lb 3.2 oz 257 lb 258 lb 12.8 oz Intake: IV 1500 400 1/2 Normal Saline 1,000 1500 ml @ 150 mls/hr IV ASDIR [facility] Rx#:[id number] Normal Saline - 1,000 ml 400 @ 100 mls/hr IV ASDIR [facility] Rx#:[id number] IVPB 150 150 100 Oral 60 840 200 Output: Urine 1000 Blackmon 1000 Other: Voiding Method Incontinent Incontinent Diaper # Unmeasured Voids Void 2 1 Bowel Movement Yes Yes: big Yes: big # Bowel Movements 1 1 Height 5 ft 5 in Body Mass Index (BMI) 42.7 Weight Measurement Method Built in Bedscale Built in Bedscale Active Medications Acetaminophen (Ofirmev Injection -) 1,000 mg IVPB Q6H PRN PRN Reason: FEVER Last Admin: 01/11/18 09:30 Dose: 1,000 mg Albuterol/Ipratropium (Duoneb -) 1 amp NEB Q4H PRN PRN Reason: SHORTNESS OF BREATH Last Admin: 01/13/18 10:49 Dose: 1 amp Aspirin (Asa -) 81 mg PO DAILY [facility] Last Admin: 01/13/18 09:28 Dose: 81 mg Atorvastatin Calcium (Lipitor -) 20 mg PO HS [facility] Last Admin: 01/12/18 21:02 Dose: 20 mg Budesonide/Formoterol Fumarate (Symbicort 160/4.5mcg -) 2 puff IH BID [facility] Last Admin: 01/13/18 10:10 Dose: 2 puff Gabapentin (Neurontin -) 600 mg PO TID [facility] Last Admin: 01/13/18 06:03 Dose: 600 mg Heparin Sodium (Porcine) (Heparin -) 5,000 unit SQ TID [facility] Last Admin: 01/13/18 06:03 Dose: 5,000 unit Metronidazole (Flagyl 500mg Premixed Ivpb -) 500 mg in 100 mls @ 100 mls/hr IVPB Q8H-IV [facility] Last Admin: 01/13/18 10:32 Dose: 100 mls/hr Ceftriaxone Sodium 2 gm/ (Dextrose) 100 mls @ 200 mls/hr IVPB DAILY [facility]; Protocol Last Admin: 01/13/18 09:29 Dose: 200 mls/hr Sodium Chloride (Normal Saline -) 1,000 mls @ 100 mls/hr IV ASDIR [facility] Last Admin: 01/13/18 09:29 Dose: Not Given Insulin Aspart (Novolog Vial Sliding Scale -) 1 vial SQ Q6H [facility]; Protocol Last Admin: 01/13/18 06:04 Dose: 4 units Metoprolol Tartrate (Lopressor -) 25 mg PO BID [facility] Last Admin: 01/13/18 09:28 Dose: 25 mg Pantoprazole Sodium (Protonix -) 20 mg PO DAILY [facility] Last Admin: 01/13/18 09:28 Dose: 20 mg Ramipril (Altace -) 2.5 mg PO DAILY [facility] Last Admin: 01/13/18 09:27 Dose: 2.5 mg Tamsulosin HCl (Flomax -) 0.4 mg PO DAILY@0830 [facility] Last Admin: 01/13/18 08:27 Dose: 0.4 mg CBC, BMP 01/13/18 06:56 01/13/18 06:56 Microbiology 01/10/18 15:26 Blood Culture - Preliminary Blood - Peripheral Venous NO GROWTH OBTAINED AFTER 48 HOURS, INCUBATION TO CONTINUE FOR 3 DAYS. 01/10/18 15:26 Blood Culture - Preliminary Blood - Peripheral Venous NO GROWTH OBTAINED AFTER 48 HOURS, INCUBATION TO CONTINUE FOR 3 DAYS. 01/10/18 18:21 Salmonella/Shigella Culture - Preliminary Stool NO ENTERIC PATHOGENS, 24 HOURS, ON PRIMARY PLATES Yersinia Culture - Preliminary NO ENTERIC PATHOGENS, 24 HOURS, ON PRIMARY PLATES Vibrio Culture - Preliminary NO ENTERIC PATHOGENS, 24 HOURS, ON PRIMARY PLATES Escherichia coli 0157 Culture - Preliminary NO ENTERIC PATHOGENS, 24 HOURS, ON PRIMARY PLATES 01/10/18 16:00 Urine Culture - Final Urine - Urine Blackmon NO GROWTH OBTAINED Physical Exam. Constitutional: Yes: No Distress, Calm. Cardiovascular: Yes: Regular Rate and Rhythm Respiratory: Yes: Diminished Gastrointestinal: Yes: Normal Bowel Sounds, Soft, Edema: No Problem List - Problems (1) FRANCISCO (acute kidney injury) Code(s): N17.9 - ACUTE KIDNEY FAILURE, UNSPECIFIED (2) Colitis Code(s): K52.9 - NONINFECTIVE GASTROENTERITIS AND COLITIS, UNSPECIFIED (3) Sepsis Code(s): A41.9 - SEPSIS, UNSPECIFIED ORGANISM (4) Severe sepsis Code(s): A41.9 - SEPSIS, UNSPECIFIED ORGANISM; R65.20 - SEVERE SEPSIS WITHOUT SEPTIC SHOCK (5) Volume overload Code(s): E87.70 - FLUID OVERLOAD, UNSPECIFIED Assessment/Plan Clinically better Pancreatitis-- better ARDS- Sepsis Continue present care - IV Fluids -- iv antibiotics -- echo -- f/u labs - start liquid diet discussed with icu attending/ nursing staff -- cc time 30 min -- will follow
--- NOTE | 2018-01-13 11:59 | PN ---
Physical Exam: SUBJECTIVE: Patient seen and examined today in icu. Resting in bed, c/o pain in urethra. Blackmon d/c'ed this am. Denies cp or sob. OBJECTIVE: Vital Signs Period Temp Pulse Resp BP Sys/Quispe Pulse Ox Last 24 Hr 97.8 F-98.7 F 60-81 16-22 106-161/56-92 96-98 GENERAL: AAOx3. HEAD: NC/AT EYES: EOMI. ENT: WNL NECK: No JVD. LUNGS: Coarse rhonci throughout. BS decreased. HEART: RRR ABDOMEN: No more Distension. Truncal obesity. EXTREMITIES: No CCE. NEUROLOGICAL: No Neuro Deficits. SKIN: Warm. Laboratory Results - last 24 hr 01/11/18 01/12/18 01/12/18 21:19 05:25 05:30 WBC RBC Hgb Hct MCV MCH MCHC RDW Plt Count MPV Absolute Neuts (auto) Neutrophils % Lymphocytes % Monocytes % Eosinophils % Basophils % Nucleated RBC % Sodium Potassium Chloride Carbon Dioxide Anion Gap BUN Creatinine Creat Clearance w eGFR POC Glucometer 145.13158 145.16608 Random Glucose Calcium Total Bilirubin AST ALT Alkaline Phosphatase Creatine Kinase Index 0.6 CK-MB (CK-2) 1.43 Total Protein Albumin 01/12/18 01/12/18 01/12/18 13:03 17:16 21:35 WBC RBC Hgb Hct MCV MCH MCHC RDW Plt Count MPV Absolute Neuts (auto) Neutrophils % Lymphocytes % Monocytes % Eosinophils % Basophils % Nucleated RBC % Sodium Potassium Chloride Carbon Dioxide Anion Gap BUN Creatinine Creat Clearance w eGFR POC Glucometer 204.04336 190.33181 230.01566 Random Glucose Calcium Total Bilirubin AST ALT Alkaline Phosphatase Creatine Kinase Index CK-MB (CK-2) Total Protein Albumin 01/13/18 01/13/18 01/13/18 06:03 06:56 06:56 WBC 17.7 H RBC 3.76 L Hgb 11.7 Hct 35.7 MCV 94.7 MCH 31.1 MCHC 32.8 RDW 15.1 Plt Count 222 MPV 10.2 Absolute Neuts (auto) 15.4 Neutrophils % 87.3 H Lymphocytes % 3.9 L D Monocytes % 8.5 Eosinophils % 0.2 D Basophils % 0.1 Nucleated RBC % 0 Sodium 144 Potassium 4.4 Chloride 106 Carbon Dioxide 31 Anion Gap 7 L BUN 24 H Creatinine 1.3 Creat Clearance w eGFR 53.12 POC Glucometer 224.65851 Random Glucose 195 H D Calcium 8.1 L Total Bilirubin 0.4 AST 25 ALT 17 Alkaline Phosphatase 71 Creatine Kinase Index CK-MB (CK-2) Total Protein 6.2 L Albumin 2.1 L Active Medications Generic Name Dose Route Start Last Admin Trade Name Freq PRN Reason Stop Dose Admin Acetaminophen 1,000 mg 01/11/18 09:14 01/11/18 09:30 Ofirmev Injection - IVPB 1,000 mg Q6H PRN Administration FEVER Albuterol/Ipratropium 1 amp 01/11/18 11:17 01/13/18 10:49 Duoneb - NEB 1 amp Q4H PRN Administration SHORTNESS OF BREATH Aspirin 81 mg 01/11/18 10:00 01/13/18 09:28 Asa - PO 81 mg DAILY [facility] Administration Atorvastatin Calcium 20 mg 01/11/18 22:00 01/12/18 21:02 Lipitor - PO 20 mg HS [facility] Administration Budesonide/Formoterol Fumarate 2 puff 01/12/18 22:00 01/13/18 10:10 Symbicort 160/4.5mcg - IH 2 puff BID [facility] Administration Gabapentin 600 mg 01/11/18 06:00 01/13/18 06:03 Neurontin - PO 600 mg TID [facility] Administration Heparin Sodium (Porcine) 5,000 unit 01/11/18 06:00 01/13/18 06:03 Heparin - SQ 5,000 unit TID [facility] Administration Metronidazole 500 mg in 100 mls @ 100 mls/hr 01/11/18 02:00 01/13/18 10:32 Flagyl 500mg Premixed Ivpb - IVPB 100 mls/hr Q8H-IV [facility] Administration Ceftriaxone Sodium 2 gm/ 100 mls @ 200 mls/hr 01/12/18 10:00 01/13/18 09:29 Dextrose IVPB 200 mls/hr DAILY [facility] Administration Protocol Sodium Chloride 1,000 mls @ 100 mls/hr 01/12/18 10:15 01/13/18 09:29 Normal Saline - IV Not Given ASDIR [facility] Insulin Aspart 1 vial 01/11/18 17:16 01/13/18 06:04 Novolog Vial Sliding Scale - SQ 4 units Q6H [facility] Administration Protocol Metoprolol Tartrate 25 mg 01/11/18 10:00 01/13/18 09:28 Lopressor - PO 25 mg BID [facility] Administration Pantoprazole Sodium 20 mg 01/11/18 10:00 01/13/18 09:28 Protonix - PO 20 mg DAILY [facility] Administration Ramipril 2.5 mg 01/11/18 10:00 01/13/18 09:27 Altace - PO 2.5 mg DAILY [facility] Administration Tamsulosin HCl 0.4 mg 01/11/18 08:30 01/13/18 08:27 Flomax - PO 0.4 mg DAILY@0830 [facility] Administration ASSESSMENT/PLAN: 82 Y/O gentleman from [place] with pmh of dementia, HTN, HLD, COPD, and DM, who presented to the ED with c/o abdominal distention, pain, nausea, and vomiting. Abd/Pelvis CT (01/10/18) revealed acute pancreatitis as well as colitis of the splenic flexure. Cardio Echo to assess LV/RV and valvular function Trend troponin to document peak Lopressor 25 bid ASA 81 qd, Lipitor 20 qd Ramipril 2.5 qd EKG 01/10---> Right Bundle Branch Block, Left [place] Deviation. G.I-Pancreatitis, Colitis Full liquid/low fat diet IVF d/c'ed, Ceftriaxone Sodium 2 gm/Dextrose 100 mls @ 200 mls/hr Metronidazole 500 mg in 100 mls @ 100 mls/hr IVPB Q8H Lipase 421 on 01/12/18. Continue to trend. Pulm-COPD Symbicort 160/4.5mcg Inhaled BID Duoneb 1 AMP NEB Q4H PRN FEN No Fluids Monitor Electrolytes Full Liquid/Low Fat Diet DVT ppx: Heparin 5,000 U SQ TID Dispo: Continue to monitor in icu. Visit type - Emergency Visit Emergency Visit: Yes ED Registration Date: 01/10/18 Care time: The patient presented to the Emergency Department on the above date and was hospitalized for further evaluation of their emergent condition. - New Patient This patient is new to me today: Yes Date on this admission: 01/13/18 - Critical Care Critical Care patient: Yes Total Critical Care Time (in minutes): 35 Critical Care Statement: The care of this patient involved high complexity decision making to prevent further life threatening deterioration of the patient 's condition and/or to evaluate & treat vital organ system(s) failure or risk of failure.
--- NOTE | 2018-01-13 15:17 | ECHO ---
Name: ADRIANA HANKS Exam:Adult Echocardiogram Study Date: 01/13/2018 09:34 AM Age: 82 yrs Reason For Study: ASSESS LVF Height: 65 in Weight: 263 lb BSA: 2.2 m2 BP: 139/83 mmHg MMode/2D Measurements & Calculations IVSd: 1.0 cm Ao root diam: 2.7 cm LVIDd: 5.5 cm LA dimension: 3.9 cm LVIDs: 3.4 cm LVPWd: 0.88 cm EDV(Teich): 149.8 ml ESV(Teich): 45.9 ml Doppler Measurements & Calculations MV E max jean: 71.6 cm/sec Med Peak E' Jean: 6.7 cm/sec MV A max jean: 108.1 cm/sec Med E/e': 10.6 MV E/A: 0.66 Lat Peak E' Jean: 7.6 cm/sec Lat E/e': 9.4 Procedure Severely limited study due to poor acoustic window. Left Ventricle The left ventricle is normal in size. Left ventricular systolic function is normal. Ejection Fraction = 60- 65%. Regional wall motion abnormality could not be accurately assessed due to poor acoustic window. Right Ventricle The right ventricle is not well visualized. Atria The left atrial size is normal. Right atrium not well visualized. Mitral Valve The mitral valve is normal in structure and function. There is no mitral regurgitation noted. Tricuspid Valve The tricuspid valve is not well visualized. Aortic Valve The aortic valve is normal in structure and function. No aortic regurgitation is present. Pulmonic Valve The pulmonic valve is not well visualized. Great Vessels The aortic root is normal size. Pericardium/Pleura There is no pericardial effusion. Interpretation Summary Severely limited study due to poor acoustic window The left ventricle is normal in size. Left ventricular systolic function is normal. Regional wall motion abnormality could not be accurately assessed due to poor acoustic window Ejection Fraction = 60-65%. No significant valvular regurgitations, but technically limted due to poor acoustic window Previous study is not available for comparison Edinson Cole MD 01/13/2018 03:16 PM
[2018-01-13] MEDS ORDERED: PT OWN MED DRAWER 7, Y5N ONE (21:15)
[2018-01-13] MEDS: ATORVASTATIN CA 20 MG TABLET (FP) PO SCH (21:16)
[2018-01-14] MEDS: INSULIN SLIDING SCALE (NOVOLOG) 1 VIAL SQ SCH ×5 (00:20→22:54)
[2018-01-14] MEDS: HEPARIN NA (PORCINE) 5,000 UNITS/ML 1ML VIAL SQ SCH ×3 (05:59→21:30)
[2018-01-14] MEDS: GABAPENTIN 300 MG CAPSULE (FP) PO SCH ×3 (05:59→21:31)
--- NOTE | 2018-01-14 06:53 | PN ---
Progress Note (short form) - Note Progress Note: Chief Complaint: Events noted, notes reviewed, dyspnea noted denies any chest discomfort, complaining of lower abdominal discomfort denies nausea or vomiting History of Present Illness: Seen and examined in the ICU. Events noted, notes reviewed, dyspnea noted denies any chest discomfort, complaining of lower abdominal discomfort denies nausea or vomiting Echocardiography study was technically suboptimal which revealed normal LV size and function, LVEF 60-65%, no significant valvular pathology - Current Medication List Current Medications: Active Medications Current Medications Acetaminophen (Ofirmev Injection -) 1,000 mg IVPB Q6H PRN PRN Reason: FEVER Last Admin: 01/11/18 09:30 Dose: 1,000 mg Albuterol/Ipratropium (Duoneb -) 1 amp NEB Q4H PRN PRN Reason: SHORTNESS OF BREATH Last Admin: 01/14/18 06:58 Dose: 1 amp Aspirin (Asa -) 81 mg PO DAILY [facility] Last Admin: 01/13/18 09:28 Dose: 81 mg Atorvastatin Calcium (Lipitor -) 20 mg PO HS [facility] Last Admin: 01/13/18 21:16 Dose: 20 mg Budesonide/Formoterol Fumarate (Symbicort 160/4.5mcg -) 2 puff IH BID [facility] Last Admin: 01/13/18 21:17 Dose: 2 puff Gabapentin (Neurontin -) 600 mg PO TID [facility] Last Admin: 01/14/18 05:59 Dose: 600 mg Heparin Sodium (Porcine) (Heparin -) 5,000 unit SQ TID [facility] Last Admin: 01/14/18 05:59 Dose: 5,000 unit Metronidazole (Flagyl 500mg Premixed Ivpb -) 500 mg in 100 mls @ 100 mls/hr IVPB Q8H-IV [facility] Last Admin: 01/14/18 02:00 Dose: 100 mls/hr Ceftriaxone Sodium 2 gm/ (Dextrose) 100 mls @ 200 mls/hr IVPB DAILY [facility]; Protocol Last Admin: 01/13/18 09:29 Dose: 200 mls/hr Sodium Chloride (Normal Saline -) 1,000 mls @ 100 mls/hr IV ASDIR [facility] Last Admin: 01/13/18 09:29 Dose: Not Given Insulin Aspart (Novolog Vial Sliding Scale -) 1 vial SQ Q6H [facility]; Protocol Last Admin: 01/14/18 05:59 Dose: 2 units Metoprolol Tartrate (Lopressor -) 25 mg PO BID [facility] Last Admin: 01/13/18 21:16 Dose: 25 mg Pantoprazole Sodium (Protonix -) 20 mg PO DAILY [facility] Last Admin: 01/13/18 09:28 Dose: 20 mg Ramipril (Altace -) 2.5 mg PO DAILY [facility] Last Admin: 01/13/18 09:27 Dose: 2.5 mg Tamsulosin HCl (Flomax -) 0.4 mg PO DAILY@0830 [facility] Last Admin: 01/13/18 08:27 Dose: 0.4 mg Review Of Systems: HEENT: denies: headache, photophobia, blurring of vision CARD: as noted above RESP: denies: cough, sputum production, hemoptysis ABD: denies: nausea, vomiting, diarrhea, melena, hematemesis but reports abdominal discomfort MUSC: denies: joint pains NEURO: denies: headache, lightheadedness - Objective Vital Signs: Last Vital Signs Temp Pulse Resp BP Pulse Ox 99.0 F 74 24 142/76 96 01/14/18 06:06 01/14/18 06:06 01/14/18 06:06 01/14/18 06:06 01/13/18 23:32 Intake & Output 01/11/18 01/12/18 01/13/18 01/14/18 23:59 23:59 23:59 23:59 Intake Total 1195 3100 1310 300 Output Total 1350 Balance 1195 3100 -40 300 Weight 254 lb 4.8 oz 257 lb 258 lb 12.8 oz 257 lb 4.471 oz Eyes: CHRYSTAL, EOMI Neck: Supple Negative JVD Cardiovascular: S1 S2 Regular Rate and Rhythm Respiratory: Diminished at the Bases with Bilateral Scattered Rhonchi Gastrointestinal: Soft Benign Normal Bowel Sounds No: Tenderness Ext: No Edema Labs: CBC, BMP 01/13/18 06:56 01/13/18 06:56 Assessment/Plan ASSESSMENT: 1. Acute pancreatitis, resolving 2. Sepsis syndrome, resolving 3. 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 AV block post PPM 5. Probable diastolic LV dysfunction chronic class 0-I NYHA classification LV failure, clinically appears euvolemic/compensated, although abnormal chest x-ray 6. Reactive airway disease/COPD on home O2 therapy with exacerbation, persistently abnormal chest x-ray 7. Acute kidney injury resolving PLAN: 1. Continue Lopressor 2. Continue Altace 3. Continue Lipitor 4. Continue ASA 5. Lasix prn 6. Antibiotics as per the primary team 7. Bronchodilators +/- steroids 8. Repeat chest x-ray and consider CT scan of the chest for further evaluation Catalina Mckeon MD
[2018-01-14] MEDS: ALBUTEROL SO4 2.5/IPRATROPIUM 0.5 INH SOL 3 ML VIAL.NEB. NEB PRN (06:58)
[2018-01-14] MEDS: TAMSULOSIN HCL 0.4 MG CAP.ER.24H (FP) PO SCH (08:22)
[2018-01-14 08:31] LABS: BASO % 0.4 % (0-2.0); EOS % 2.4 % (0-4.5); HEMATOCRIT 33.9 % (35.4-49); HEMOGLOBIN 11.2 GM/dL (11.7-16.9); MCH 31.2 pg (25.7-33.7); MCHC 33.2 g/dl (32.0-35.9); MEAN CELL VOLUME 94.2 fl (80-96); MEAN PLT VOLUME 10.3 fl (7.5-11.1); NEUT % 80.2 % (42.8-82.8); PLATELET COUNT 229 K/MM3 (134-434); RBC 3.59 M/mm3 (4.00-5.60); RDW 14.9 % (11.9-15.9); WHITE BLOOD COUNT 13.9 K/mm3 (4.0-10.0)
[2018-01-14 08:57] LABS: ALBUMIN 2.1 g/dl (3.4-5.0); ANION GAP 7 (8-16); BILIRUBIN,TOTAL 0.4 mg/dL (0.2-1.0); BLOOD UREA NITROGEN 22 mg/dL (7-18); CALCIUM 8.3 mg/dL (8.5-10.1); CHLORIDE 106 mmol/L (98-107); CO2 31 mmol/L (21-32); CREATININE 1.2 mg/dL (0.7-1.3); GLUCOSE,RANDOM 146 mg/dL (74-106); MAGNESIUM 2.4 mg/dL (1.8-2.4); PHOSPHOROUS 2.8 mg/dL (2.5-4.9); POTASSIUM 3.8 mmol/L (3.5-5.1); SGOT/AST 45 U/L (15-37); SGPT/ALT 26 U/L (12-78); SODIUM 144 mmol/L (136-145); TOT PROT 5.9 g/dl (6.4-8.2)
[2018-01-14 08:58] LABS: ALK PHOS 82 U/L (45-117)
[2018-01-14] MEDS ORDERED: ACETAMINOPHEN 1000 MG/100 ML VIAL (NON FORMULARY) IVPB PRN (09:53)
[2018-01-14] MEDS ORDERED: ALBUTEROL SO4 2.5/IPRATROPIUM 0.5 INH SOL 3 ML VIAL.NEB. NEB PRN (09:53)
[2018-01-14] MEDS ORDERED: SODIUM CHLORIDE 1,000 ML IV SCH ×2 (09:53→17:15)
[2018-01-14] MEDS ORDERED: DEXTROSE 5%-WATER 100 ML IVPB ONE (10:44)
[2018-01-14] MEDS: RAMIPRIL 2.5 MG CAPSULE (FP) PO SCH (11:03)
[2018-01-14] MEDS: ASPIRIN 81 MG CHEWABLE TABLETS PO SCH (11:03)
[2018-01-14] MEDS: METOPROLOL TARTRATE 25 MG TABLET (FP) PO SCH ×2 (11:03→21:31)
[2018-01-14] MEDS: CEFTRIAXONE 2 GM in DEXTROSE 5%-WATER 100 ML IVPB SCH (11:04)
[2018-01-14] MEDS: PANTOPRAZOLE 20 MG TABLET (FP) PO SCH (11:04)
[2018-01-14] MEDS: BUDESONIDE/FORMETEROL FUMARATE 160/4.5 mcg INHALER IH SCH ×2 (11:14→21:31)
[2018-01-14 11:41] LABS: PLATELET ESTIMATE ADEQUATE
--- NOTE | 2018-01-14 12:15 | PN ---
Progress Note (short form) - Note Progress Note: PULMONARY Some increased shortness of breath and wheezing today. Vital Signs Period Temp Pulse Resp BP Sys/Quispe Pulse Ox Last 24 Hr 98.0 F-99.1 F 65-85 16-24 118-167/53-80 94-96 Gen: mildly tachypneic at rest Heart: RRR Lung: scattered wheezes, rhonchi Abd: soft, nontender, obese Ext: no edema CBC, BMP 01/14/18 08:10 01/14/18 08:10 Active Medications Acetaminophen (Ofirmev Injection -) 1,000 mg IVPB Q6H PRN PRN Reason: FEVER Albuterol/Ipratropium (Duoneb -) 1 amp NEB Q4H PRN PRN Reason: SHORTNESS OF BREATH Aspirin (Asa -) 81 mg PO DAILY [facility] Last Admin: 01/14/18 11:03 Dose: 81 mg Atorvastatin Calcium (Lipitor -) 20 mg PO HS [facility] Budesonide/Formoterol Fumarate (Symbicort 160/4.5mcg -) 2 puff IH BID [facility] Last Admin: 01/14/18 11:14 Dose: 2 puff Gabapentin (Neurontin -) 600 mg PO TID [facility] Heparin Sodium (Porcine) (Heparin -) 5,000 unit SQ TID [facility] Ceftriaxone Sodium 2 gm/ (Dextrose) 100 mls @ 200 mls/hr IVPB DAILY [facility]; Protocol Last Admin: 01/14/18 11:04 Dose: 200 mls/hr Metronidazole (Flagyl 500mg Premixed Ivpb -) 500 mg in 100 mls @ 100 mls/hr IVPB Q8H-IV [facility] Last Admin: 01/14/18 11:04 Dose: 100 mls/hr Sodium Chloride (Normal Saline -) 1,000 mls @ 100 mls/hr IV ASDIR [facility] Insulin Aspart (Novolog Vial Sliding Scale -) 1 vial SQ Q6H [facility]; Protocol Last Admin: 01/14/18 11:19 Dose: Not Given Metoprolol Tartrate (Lopressor -) 25 mg PO BID [facility] Last Admin: 01/14/18 11:03 Dose: 25 mg Pantoprazole Sodium (Protonix -) 20 mg PO DAILY [facility] Last Admin: 01/14/18 11:04 Dose: 20 mg Ramipril (Altace -) 2.5 mg PO DAILY [facility] Last Admin: 01/14/18 11:03 Dose: 2.5 mg Tamsulosin HCl (Flomax -) 0.4 mg PO DAILY@0830 [facility] A/P Acute Pancreatitis improving Sepsis COPD Chronic Hypoxic Respiratory Failure CAD AV Block s/p PPPM LV Diastolic Dysfunction Acute Kidney Injury improving - antibiotics per ID - IVF - monitor urine output, creatinine - will make nebs standing, if still wheezing will consider short course of steroids - O2 to keep Spo2 >90% - DVT prophylaxis
--- NOTE | 2018-01-14 14:07 | PN ---
Progress Note (short form) - Note Progress Note: - Note Progress Note: pt seen/ examined in tele awake. Comfortable Vital Signs - 24 hr 01/13/18 01/13/18 01/13/18 16:11 18:00 20:00 Temperature 98.6 F Pulse Rate 69 70 75 Respiratory 18 22 24 Rate Blood Pressure 130/70 147/65 133/61 O2 Sat by Pulse Oximetry (%) 01/13/18 01/13/18 01/13/18 20:43 22:00 23:32 Temperature 98.5 F Pulse Rate 70 Respiratory 24 Rate Blood Pressure 126/53 O2 Sat by Pulse 95 96 Oximetry (%) 01/14/18 01/14/18 01/14/18 00:00 02:00 03:59 Temperature 98.0 F Pulse Rate 65 74 70 Respiratory 22 22 22 Rate Blood Pressure 155/70 167/80 141/74 O2 Sat by Pulse Oximetry (%) 01/14/18 01/14/18 01/14/18 05:00 06:06 08:00 Temperature 98.2 F 99.0 F 99.1 F Pulse Rate 76 74 73 Respiratory 17 24 22 Rate Blood Pressure 161/74 142/76 159/80 O2 Sat by Pulse Oximetry (%) 01/14/18 01/14/18 09:00 10:00 Temperature 99 F Pulse Rate 85 Respiratory 22 Rate Blood Pressure 161/80 O2 Sat by Pulse 94 L Oximetry (%) Current Medications Generic Name Dose Route Start Last Admin Trade Name Freq PRN Reason Stop Dose Admin Acetaminophen 1,000 mg 01/14/18 09:53 Ofirmev Injection - IVPB Q6H PRN FEVER Albuterol Sulfate 1 amp 01/14/18 12:16 Ventolin 0.083% Nebulizer Soln - NEB Q4H PRN SHORT OF BREATH/WHEEZING Albuterol/Ipratropium 1 amp 01/14/18 16:00 Duoneb - NEB RQID [facility] Aspirin 81 mg 01/14/18 10:00 01/14/18 11:03 Asa - PO 81 mg DAILY [facility] Administration Atorvastatin Calcium 20 mg 01/14/18 22:00 Lipitor - PO HS [facility] Budesonide/Formoterol Fumarate 2 puff 01/14/18 10:00 01/14/18 11:14 Symbicort 160/4.5mcg - IH 2 puff BID [facility] Administration Gabapentin 600 mg 01/14/18 14:00 01/14/18 13:43 Neurontin - PO 600 mg TID [facility] Administration Heparin Sodium (Porcine) 5,000 unit 01/14/18 14:00 01/14/18 13:15 Heparin - SQ 5,000 unit TID [facility] Administration Ceftriaxone Sodium 2 gm/ 100 mls @ 200 mls/hr 01/14/18 10:00 01/14/18 11:04 Dextrose IVPB 200 mls/hr DAILY [facility] Administration Protocol Metronidazole 500 mg in 100 mls @ 100 mls/hr 01/14/18 10:00 01/14/18 11:04 Flagyl 500mg Premixed Ivpb - IVPB 100 mls/hr Q8H-IV [facility] Administration Sodium Chloride 1,000 mls @ 100 mls/hr 01/14/18 09:53 Normal Saline - IV ASDIR [facility] Insulin Aspart 1 vial 01/14/18 11:16 01/14/18 11:19 Novolog Vial Sliding Scale - SQ Not Given Q6H [facility] Protocol Metoprolol Tartrate 25 mg 01/14/18 10:00 01/14/18 11:03 Lopressor - PO 25 mg BID [facility] Administration Pantoprazole Sodium 20 mg 01/14/18 10:00 01/14/18 11:04 Protonix - PO 20 mg DAILY [facility] Administration Ramipril 2.5 mg 01/14/18 10:00 01/14/18 11:03 Altace - PO 2.5 mg DAILY [facility] Administration Tamsulosin HCl 0.4 mg 01/15/18 08:30 Flomax - PO DAILY@0830 [facility] Laboratory Results - last 24 hr 01/13/18 01/13/18 01/14/18 11:45 16:47 00:14 WBC RBC Hgb Hct MCV MCH MCHC RDW Plt Count MPV Absolute Neuts (auto) Total Counted Neutrophils % Neutrophils % (Manual) Band Neutrophils % Lymphocytes % Lymphocytes % (Manual) Monocytes % Monocytes % (Manual) Eosinophils % Eosinophils % (Manual) Basophils % Myelocytes % (Man) Nucleated RBC % Platelet Estimate Sodium Potassium Chloride Carbon Dioxide Anion Gap BUN Creatinine Creat Clearance w eGFR POC Glucometer [phone] 223.48575 Random Glucose Calcium Phosphorus Magnesium Total Bilirubin AST ALT Alkaline Phosphatase Total Protein Albumin 01/14/18 01/14/18 01/14/18 05:55 08:10 08:10 WBC 13.9 H RBC 3.59 L Hgb 11.2 L Hct 33.9 L MCV 94.2 MCH 31.2 MCHC 33.2 RDW 14.9 Plt Count 229 MPV 10.3 Absolute Neuts (auto) 11.1 Total Counted 100 Neutrophils % 80.2 Neutrophils % (Manual) 76.0 D Band Neutrophils % 3.0 Lymphocytes % 6.0 L D Lymphocytes % (Manual) 6.0 L D Monocytes % 11.0 H Monocytes % (Manual) 12 H Eosinophils % 2.4 D Eosinophils % (Manual) 2.0 D Basophils % 0.4 D Myelocytes % (Man) 1 Nucleated RBC % 0 Platelet Estimate Adequate Sodium 144 Potassium 3.8 Chloride 106 Carbon Dioxide 31 Anion Gap 7 L BUN 22 H Creatinine 1.2 Creat Clearance w eGFR 58.26 POC Glucometer [phone] Random Glucose 146 H D Calcium 8.3 L Phosphorus 2.8 Magnesium 2.4 Total Bilirubin 0.4 AST 45 H D ALT 26 D Alkaline Phosphatase 82 D Total Protein 5.9 L Albumin 2.1 L 01/14/18 11:18 WBC RBC Hgb Hct MCV MCH MCHC RDW Plt Count MPV Absolute Neuts (auto) Total Counted Neutrophils % Neutrophils % (Manual) Band Neutrophils % Lymphocytes % Lymphocytes % (Manual) Monocytes % Monocytes % (Manual) Eosinophils % Eosinophils % (Manual) Basophils % Myelocytes % (Man) Nucleated RBC % Platelet Estimate Sodium Potassium Chloride Carbon Dioxide Anion Gap BUN Creatinine Creat Clearance w eGFR POC Glucometer 141 Random Glucose Calcium Phosphorus Magnesium Total Bilirubin AST ALT Alkaline Phosphatase Total Protein Albumin Physical Exam. Constitutional: Yes: No Distress, Calm. Cardiovascular: Yes: Regular Rate and Rhythm Respiratory: Yes: Diminished Gastrointestinal: Yes: Normal Bowel Sounds, Soft, Edema: No Problem List - Problems (1) FRANCISCO (acute kidney injury) Code(s): N17.9 - ACUTE KIDNEY FAILURE, UNSPECIFIED (2) Colitis Code(s): K52.9 - NONINFECTIVE GASTROENTERITIS AND COLITIS, UNSPECIFIED (3) Sepsis Code(s): A41.9 - SEPSIS, UNSPECIFIED ORGANISM (4) Severe sepsis Code(s): A41.9 - SEPSIS, UNSPECIFIED ORGANISM; R65.20 - SEVERE SEPSIS WITHOUT SEPTIC SHOCK (5) Volume overload Code(s): E87.70 - FLUID OVERLOAD, UNSPECIFIED Assessment/Plan Clinically better Pancreatitis-- better ARDS- Sepsis Continue present care - IV Fluids -- iv antibiotics -- echo -- f/u labs -tolerating diet Problem List - Problems (1) FRANCISCO (acute kidney injury) Code(s): N17.9 - ACUTE KIDNEY FAILURE, UNSPECIFIED (2) Colitis Code(s): K52.9 - NONINFECTIVE GASTROENTERITIS AND COLITIS, UNSPECIFIED (3) Sepsis Code(s): A41.9 - SEPSIS, UNSPECIFIED ORGANISM (4) Severe sepsis Code(s): A41.9 - SEPSIS, UNSPECIFIED ORGANISM; R65.20 - SEVERE SEPSIS WITHOUT SEPTIC SHOCK (5) Volume overload Code(s): E87.70 - FLUID OVERLOAD, UNSPECIFIED
[2018-01-14] MEDS: ALBUTEROL SO4 2.5/IPRATROPIUM 0.5 INH SOL 3 ML VIAL.NEB. NEB SCH ×2 (15:27→20:35)
--- NOTE | 2018-01-14 17:40 | HOSP ---
Physical Examination Vital Signs: Vital Signs Temperature 99.0 F 01/14/18 14:00 Pulse Rate 72 01/14/18 14:00 Respiratory Rate 18 01/14/18 14:00 Blood Pressure 168/82 01/14/18 14:00 O2 Sat by Pulse Oximetry (%) 94 L 01/14/18 09:00 Labs: CBC, BMP 01/14/18 08:10 01/14/18 08:10 Hospitalist Encounter Assessment: patient is an 82 year old male with a significant past medical history of dementia, HTN, HLD, COPD, and DM. patient is from a NH and comes in for abdominal pain, fever, nausea, vomiting for the past few days. patient has been started on a full liquid diet today. Called by primary RN over patient having increased labored breathing and coughing. On exam patient is sitting up in bed, on 3 liters of nasal cannula with labored breathing with accessory muscle use. Vital signs: bp 160/80s, 76 heart rate, 24-28 breaths per minute, 94% on 3 liters. He has audible and scattered wheezing on bilateral lung naranjo. Also noted to have trace edema on bilateral lower extremities. Patient denies chest pain Plan: Stop IVF for now as patient is on a full liquid diet and is eating at least 50% of his meals Give lasix 20mg IVP x 1 now and monitor output. For the wheezing will give solumedrol 60mg x 1 and monitor airway. Will order venti mask now and can be weaned off as tolerated Chest xray done today reviewed: shallow inspiration and increased lung markings are noted in left lower lobe Continuous oxygen monitoring ordered
[2018-01-14] MEDS ORDERED: FUROSEMIDE 40 MG/4 ML INJECTABLE VIAL IVPUSH ONE (18:00)
[2018-01-14] MEDS ORDERED: methylPREDNISolone NA SUCC 40 MG/1 ML VIAL IVPUSH ONE (18:00)
[2018-01-14] MEDS: ALBUTEROL SO4 0.083% IH SOL 2.5 MG/3 ML VIAL.NEB. NEB PRN (18:11)
[2018-01-14] MEDS: ATORVASTATIN CA 20 MG TABLET (FP) PO SCH (21:31)
[2018-01-15] MEDS: HEPARIN NA (PORCINE) 5,000 UNITS/ML 1ML VIAL SQ SCH ×3 (06:36→21:53)
[2018-01-15] MEDS: INSULIN SLIDING SCALE (NOVOLOG) 1 VIAL SQ SCH ×5 (06:36→22:23)
[2018-01-15 06:37] LABS: BASO % 0.4 % (0-2.0); EOS % 0.2 % (0-4.5); HEMATOCRIT 33.5 % (35.4-49); HEMOGLOBIN 11.1 GM/dL (11.7-16.9); LYMPH % 4.9 % (8-40); MCH 31.3 pg (25.7-33.7); MCHC 33.2 g/dl (32.0-35.9); MEAN CELL VOLUME 94.1 fl (80-96); MEAN PLT VOLUME 10.5 fl (7.5-11.1); MONO % 6.7 % (3.8-10.2); NEUT % 87.8 % (42.8-82.8); PLATELET COUNT 256 K/MM3 (134-434); RBC 3.56 M/mm3 (4.00-5.60); RDW 15.1 % (11.9-15.9); WHITE BLOOD COUNT 12.5 K/mm3 (4.0-10.0)
[2018-01-15] MEDS: GABAPENTIN 300 MG CAPSULE (FP) PO SCH ×3 (06:37→21:53)
[2018-01-15 07:20] LABS: ALBUMIN 2.1 g/dl (3.4-5.0); ANION GAP 4 (8-16); BLOOD UREA NITROGEN 21 mg/dL (7-18); CALCIUM 8.4 mg/dL (8.5-10.1); CHLORIDE 103 mmol/L (98-107); CO2 33 mmol/L (21-32); GLUCOSE,RANDOM 258 mg/dL (74-106); POTASSIUM 4.6 mmol/L (3.5-5.1); SODIUM 140 mmol/L (136-145)
[2018-01-15 07:24] LABS: ALK PHOS 90 U/L (45-117); BILIRUBIN,TOTAL 0.4 mg/dL (0.2-1.0); CREATININE 1.1 mg/dL (0.7-1.3); SGOT/AST 48 U/L (15-37); SGPT/ALT 33 U/L (12-78); TOT PROT 6.2 g/dl (6.4-8.2)
[2018-01-15] MEDS: ALBUTEROL SO4 2.5/IPRATROPIUM 0.5 INH SOL 3 ML VIAL.NEB. NEB SCH ×4 (08:12→20:40)
[2018-01-15] MEDS ORDERED: PT OWN MED DRAWER 7, Y5N ONE ×2 (08:55→21:49)
[2018-01-15] MEDS ORDERED: DEXTROSE 5%-WATER 100 ML IVPB ONE (08:56)
[2018-01-15] MEDS: BUDESONIDE/FORMETEROL FUMARATE 160/4.5 mcg INHALER IH SCH ×2 (09:51→22:48)
[2018-01-15] MEDS: RAMIPRIL 2.5 MG CAPSULE (FP) PO SCH (09:51)
[2018-01-15] MEDS: ASPIRIN 81 MG CHEWABLE TABLETS PO SCH (09:51)
[2018-01-15] MEDS: METOPROLOL TARTRATE 25 MG TABLET (FP) PO SCH ×2 (09:51→21:53)
[2018-01-15] MEDS: PANTOPRAZOLE 20 MG TABLET (FP) PO SCH (09:51)
[2018-01-15] MEDS: CEFTRIAXONE 2 GM in DEXTROSE 5%-WATER 100 ML IVPB SCH (09:51)
[2018-01-15] MEDS: TAMSULOSIN HCL 0.4 MG CAP.ER.24H (FP) PO SCH (09:51)
--- NOTE | 2018-01-15 11:01 | PN ---
Progress Note, Physician History of Present Illness: Epigastric abdominal pain without nausea or emesis. - Current Medication List Current Medications: Active Medications Acetaminophen (Ofirmev Injection -) 1,000 mg IVPB Q6H PRN PRN Reason: FEVER Albuterol Sulfate (Ventolin 0.083% Nebulizer Soln -) 1 amp NEB Q4H PRN PRN Reason: SHORT OF BREATH/WHEEZING Last Admin: 01/14/18 18:11 Dose: 1 amp Albuterol/Ipratropium (Duoneb -) 1 amp NEB RQID [facility] Last Admin: 01/15/18 08:12 Dose: 1 amp Aspirin (Asa -) 81 mg PO DAILY [facility] Last Admin: 01/15/18 09:51 Dose: 81 mg Atorvastatin Calcium (Lipitor -) 20 mg PO HS [facility] Last Admin: 01/14/18 21:31 Dose: 20 mg Budesonide/Formoterol Fumarate (Symbicort 160/4.5mcg -) 2 puff IH BID [facility] Last Admin: 01/15/18 09:51 Dose: 2 puff Gabapentin (Neurontin -) 600 mg PO TID [facility] Last Admin: 01/15/18 06:37 Dose: 600 mg Heparin Sodium (Porcine) (Heparin -) 5,000 unit SQ TID [facility] Last Admin: 01/15/18 06:36 Dose: 5,000 unit Ceftriaxone Sodium 2 gm/ (Dextrose) 100 mls @ 200 mls/hr IVPB DAILY [facility]; Protocol Last Admin: 01/15/18 09:51 Dose: 200 mls/hr Metronidazole (Flagyl 500mg Premixed Ivpb -) 500 mg in 100 mls @ 100 mls/hr IVPB Q8H-IV [facility] Last Admin: 01/15/18 09:51 Dose: 100 mls/hr Insulin Aspart (Novolog Vial Sliding Scale -) 1 vial SQ Q6H [facility]; Protocol Last Admin: 01/15/18 06:36 Dose: 4 units Metoprolol Tartrate (Lopressor -) 25 mg PO BID [facility] Last Admin: 01/15/18 09:51 Dose: 25 mg Pantoprazole Sodium (Protonix -) 20 mg PO DAILY [facility] Last Admin: 01/15/18 09:51 Dose: 20 mg Ramipril (Altace -) 2.5 mg PO DAILY [facility] Last Admin: 01/15/18 09:51 Dose: 2.5 mg Tamsulosin HCl (Flomax -) 0.4 mg PO DAILY@0830 [facility] Last Admin: 01/15/18 09:51 Dose: 0.4 mg - Objective Vital Signs: Vital Signs Temperature 98.4 F 01/15/18 10:00 Pulse Rate 88 01/15/18 10:00 Respiratory Rate 24 01/15/18 10:00 Blood Pressure 152/82 01/15/18 10:00 O2 Sat by Pulse Oximetry (%) 97 01/15/18 10:00 Constitutional: Yes: No Distress, Calm Neck: Yes: Supple Cardiovascular: Yes: Regular Rate and Rhythm Respiratory: Yes: Regular, Diminished Gastrointestinal: Yes: Soft, Hypoactive Bowel Sounds, Tenderness, Epigastrium Edema: No Labs: CBC, BMP 01/15/18 05:45 01/15/18 05:45 INR, PTT INR 1.38 (0.82-1.09) H 01/10/18 15:25 - ....Imaging Chest X-ray: Report Reviewed (Left pacemaker, shallow inspiration) Problem List - Problems (1) FRANCISCO (acute kidney injury) Code(s): N17.9 - ACUTE KIDNEY FAILURE, UNSPECIFIED (2) Pacemaker Code(s): Z95.0 - PRESENCE OF CARDIAC PACEMAKER (3) Pancreatitis Code(s): K85.90 - ACUTE PANCREATITIS WITHOUT NECROSIS OR INFECTION, UNSP Qualifiers: Chronicity: acute Pancreatitis type: unspecified pancreatitis type Acute pancreatitis complication: unspecified Qualified Code(s): K85.90 - Acute pancreatitis without necrosis or infection, unspecified (4) Sepsis Code(s): A41.9 - SEPSIS, UNSPECIFIED ORGANISM (5) Diastolic dysfunction Code(s): I51.9 - HEART DISEASE, UNSPECIFIED (6) Demand ischemia Code(s): I24.8 - OTHER FORMS OF ACUTE ISCHEMIC HEART DISEASE (7) COPD (chronic obstructive pulmonary disease) Code(s): J44.9 - CHRONIC OBSTRUCTIVE PULMONARY DISEASE, UNSPECIFIED Qualifiers: COPD type: unspecified COPD Qualified Code(s): J44.9 - Chronic obstructive pulmonary disease, unspecified Assessment/Plan Echocardiography study was technically suboptimal which revealed normal LV size and function, LVEF 60-65%, no significant valvular pathology 1. Acute pancreatitis, resolving 2. Sepsis syndrome, resolving 3. 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 AV block post PPM 5. Probable diastolic LV dysfunction chronic class 0-I NYHA classification LV failure, clinically appears euvolemic/compensated 6. Chronic Hypoxic Respiratory Failure/COPD on home O2 therapy 7. Acute kidney injury resolving PLAN: 1. Continue Lopressor 25 bid 2. Continue Altace 2.5 qd 3. Continue Lipitor 20 qhs 4. Continue ASA 81 qd 5. Lasix prn 6. Antibiotics as per the primary team 7. Bronchodilators, O2 to keep Spo2 >90% 8. DVT and GI prophylaxis
[2018-01-15 12:56] LABS: ANISOCYTOSIS 1+; PLATELET ESTIMATE ADEQUATE
--- NOTE | 2018-01-15 13:04 | PN ---
Progress Note (short form) - Note Progress Note: - Note Progress Note: pt seen/ examined in tele awake. appears SOB Hospitalist danny noted received lasix 20mg iv yesterday no abd pain Vital Signs - 24 hr 01/14/18 01/14/18 01/14/18 21:00 21:42 22:00 Temperature 98.1 F Pulse Rate 84 Respiratory 24 24 Rate Blood Pressure 188/93 O2 Sat by Pulse 97 97 Oximetry (%) 01/15/18 01/15/18 01/15/18 01:42 05:00 10:00 Temperature 98.1 F 98.2 F 98.4 F Pulse Rate 89 94 H 88 Respiratory 22 24 24 Rate Blood Pressure 167/89 158/73 152/82 O2 Sat by Pulse 97 Oximetry (%) 01/15/18 01/15/18 13:45 17:00 Temperature 98.8 F Pulse Rate 70 77 Respiratory 18 20 Rate Blood Pressure 137/77 O2 Sat by Pulse Oximetry (%) Current Medications Generic Name Dose Route Start Last Admin Trade Name Freq PRN Reason Stop Dose Admin Acetaminophen 1,000 mg 01/14/18 09:53 Ofirmev Injection - IVPB Q6H PRN FEVER Albuterol Sulfate 1 amp 01/14/18 12:16 01/14/18 18:11 Ventolin 0.083% Nebulizer Soln - NEB 1 amp Q4H PRN Administration SHORT OF BREATH/WHEEZING Albuterol/Ipratropium 1 amp 01/14/18 16:00 01/15/18 15:19 Duoneb - NEB 1 amp RQID [facility] Administration Aspirin 81 mg 01/14/18 10:00 01/15/18 09:51 Asa - PO 81 mg DAILY [facility] Administration Atorvastatin Calcium 20 mg 01/14/18 22:00 01/14/18 21:31 Lipitor - PO 20 mg HS [facility] Administration Budesonide/Formoterol Fumarate 2 puff 01/14/18 10:00 01/15/18 09:51 Symbicort 160/4.5mcg - IH 2 puff BID [facility] Administration Gabapentin 600 mg 01/14/18 14:00 01/15/18 13:39 Neurontin - PO 600 mg TID [facility] Administration Heparin Sodium (Porcine) 5,000 unit 01/14/18 14:00 01/15/18 13:39 Heparin - SQ 5,000 unit TID [facility] Administration Ceftriaxone Sodium 2 gm/ 100 mls @ 200 mls/hr 01/14/18 10:00 01/15/18 09:51 Dextrose IVPB 200 mls/hr DAILY [facility] Administration Protocol Metronidazole 500 mg in 100 mls @ 100 mls/hr 01/14/18 10:00 01/15/18 17:37 Flagyl 500mg Premixed Ivpb - IVPB 100 mls/hr Q8H-IV [facility] Administration Insulin Aspart 1 vial 01/14/18 11:16 01/15/18 17:35 Novolog Vial Sliding Scale - SQ 1 vial Q6H [facility] Administration Protocol Metoprolol Tartrate 25 mg 01/14/18 10:00 01/15/18 09:51 Lopressor - PO 25 mg BID [facility] Administration Pantoprazole Sodium 20 mg 01/14/18 10:00 01/15/18 09:51 Protonix - PO 20 mg DAILY [facility] Administration Ramipril 2.5 mg 01/14/18 10:00 01/15/18 09:51 Altace - PO 2.5 mg DAILY [facility] Administration Tamsulosin HCl 0.4 mg 01/15/18 08:30 01/15/18 09:51 Flomax - PO 0.4 mg DAILY@0830 [facility] Administration Laboratory Results - last 24 hr 01/14/18 01/15/18 01/15/18 21:23 05:45 05:45 WBC 12.5 H RBC 3.56 L Hgb 11.1 L Hct 33.5 L MCV 94.1 MCH 31.3 MCHC 33.2 RDW 15.1 Plt Count 256 MPV 10.5 Absolute Neuts (auto) 10.9 Neutrophils % 87.8 H Neutrophils % (Manual) 77.4 Band Neutrophils % 4.9 Lymphocytes % 4.9 L Lymphocytes % (Manual) 5.9 L Monocytes % 6.7 Monocytes % (Manual) 5 Eosinophils % 0.2 D Eosinophils % (Manual) 0.0 D Basophils % 0.4 Basophils % (Manual) 0.0 Myelocytes % (Man) 5 H Promyelocytes % (Man) 0 Blast Cells % (Manual) 0 Nucleated RBC % 1 H Metamyelocytes 1 Platelet Estimate Adequate Polychromasia 1+ Basophilic Stippling 1+ Anisocytosis 1+ Sodium 140 Potassium 4.6 D Chloride 103 Carbon Dioxide 33 H Anion Gap 4 L BUN 21 H Creatinine 1.1 Creat Clearance w eGFR > 60 POC Glucometer 248 Random Glucose 258 H D Calcium 8.4 L Total Bilirubin 0.4 AST 48 H ALT 33 D Alkaline Phosphatase 90 Total Protein 6.2 L Albumin 2.1 L 01/15/18 01/15/18 01/15/18 06:29 11:37 17:34 WBC RBC Hgb Hct MCV MCH MCHC RDW Plt Count MPV Absolute Neuts (auto) Neutrophils % Neutrophils % (Manual) Band Neutrophils % Lymphocytes % Lymphocytes % (Manual) Monocytes % Monocytes % (Manual) Eosinophils % Eosinophils % (Manual) Basophils % Basophils % (Manual) Myelocytes % (Man) Promyelocytes % (Man) Blast Cells % (Manual) Nucleated RBC % Metamyelocytes Platelet Estimate Polychromasia Basophilic Stippling Anisocytosis Sodium Potassium Chloride Carbon Dioxide Anion Gap BUN Creatinine Creat Clearance w eGFR POC Glucometer 235 255 195 Random Glucose Calcium Total Bilirubin AST ALT Alkaline Phosphatase Total Protein Albumin Physical Exam. Constitutional: Yes: No Distress, Calm. Cardiovascular: Yes: Regular Rate and Rhythm Respiratory: Yes: Diminished, rales and ronchi diffuse+ Gastrointestinal: Yes: Normal Bowel Sounds, Soft, Edema: No Problem List - Problems (1) FRANCISCO (acute kidney injury) Code(s): N17.9 - ACUTE KIDNEY FAILURE, UNSPECIFIED (2) Colitis Code(s): K52.9 - NONINFECTIVE GASTROENTERITIS AND COLITIS, UNSPECIFIED (3) Sepsis Code(s): A41.9 - SEPSIS, UNSPECIFIED ORGANISM (4) Severe sepsis Code(s): A41.9 - SEPSIS, UNSPECIFIED ORGANISM; R65.20 - SEVERE SEPSIS WITHOUT SEPTIC SHOCK (5) Volume overload Code(s): E87.70 - FLUID OVERLOAD, UNSPECIFIED Assessment/Plan Clinically better Pancreatitis-- better volume overload Sepsis Continue present care - IV Fluids dc -- iv antibiotics -- echo -- nebs -- iv Lasix today and will monitor response - spoke with Pulmonary -tolerating diet Problem List - Problems (1) FRANCISCO (acute kidney injury) Code(s): N17.9 - ACUTE KIDNEY FAILURE, UNSPECIFIED (2) Colitis Code(s): K52.9 - NONINFECTIVE GASTROENTERITIS AND COLITIS, UNSPECIFIED (3) Sepsis Code(s): A41.9 - SEPSIS, UNSPECIFIED ORGANISM (4) Severe sepsis Code(s): A41.9 - SEPSIS, UNSPECIFIED ORGANISM; R65.20 - SEVERE SEPSIS WITHOUT SEPTIC SHOCK (5) Volume overload Code(s): E87.70 - FLUID OVERLOAD, UNSPECIFIED
[2018-01-15] MEDS ORDERED: FUROSEMIDE 40 MG/4 ML INJECTABLE VIAL IVPUSH ONE (13:32)
--- NOTE | 2018-01-15 13:57 | PN ---
Progress Note, Physician History of Present Illness: PULMONARY ALERT,DYSPNEIC,+WHEEZING,+ COUGH - Current Medication List Current Medications: Active Medications Acetaminophen (Ofirmev Injection -) 1,000 mg IVPB Q6H PRN PRN Reason: FEVER Albuterol Sulfate (Ventolin 0.083% Nebulizer Soln -) 1 amp NEB Q4H PRN PRN Reason: SHORT OF BREATH/WHEEZING Last Admin: 01/14/18 18:11 Dose: 1 amp Albuterol/Ipratropium (Duoneb -) 1 amp NEB RQID [facility] Last Admin: 01/15/18 11:32 Dose: 1 amp Aspirin (Asa -) 81 mg PO DAILY [facility] Last Admin: 01/15/18 09:51 Dose: 81 mg Atorvastatin Calcium (Lipitor -) 20 mg PO HS [facility] Last Admin: 01/14/18 21:31 Dose: 20 mg Budesonide/Formoterol Fumarate (Symbicort 160/4.5mcg -) 2 puff IH BID [facility] Last Admin: 01/15/18 09:51 Dose: 2 puff Furosemide (Lasix Injection -) 40 mg IVPUSH ONCE ONE Stop: 01/15/18 13:33 Last Admin: 01/15/18 13:39 Dose: 40 mg Gabapentin (Neurontin -) 600 mg PO TID [facility] Last Admin: 01/15/18 13:39 Dose: 600 mg Heparin Sodium (Porcine) (Heparin -) 5,000 unit SQ TID [facility] Last Admin: 01/15/18 13:39 Dose: 5,000 unit Ceftriaxone Sodium 2 gm/ (Dextrose) 100 mls @ 200 mls/hr IVPB DAILY [facility]; Protocol Last Admin: 01/15/18 09:51 Dose: 200 mls/hr Metronidazole (Flagyl 500mg Premixed Ivpb -) 500 mg in 100 mls @ 100 mls/hr IVPB Q8H-IV [facility] Last Admin: 01/15/18 09:51 Dose: 100 mls/hr Insulin Aspart (Novolog Vial Sliding Scale -) 1 vial SQ Q6H [facility]; Protocol Last Admin: 01/15/18 11:49 Dose: 1 vial Metoprolol Tartrate (Lopressor -) 25 mg PO BID [facility] Last Admin: 01/15/18 09:51 Dose: 25 mg Pantoprazole Sodium (Protonix -) 20 mg PO DAILY [facility] Last Admin: 01/15/18 09:51 Dose: 20 mg Ramipril (Altace -) 2.5 mg PO DAILY [facility] Last Admin: 01/15/18 09:51 Dose: 2.5 mg Tamsulosin HCl (Flomax -) 0.4 mg PO DAILY@0830 [facility] Last Admin: 01/15/18 09:51 Dose: 0.4 mg - Objective Vital Signs: Vital Signs Temperature 98.4 F 01/15/18 10:00 Pulse Rate 88 01/15/18 10:00 Respiratory Rate 24 01/15/18 10:00 Blood Pressure 152/82 01/15/18 10:00 O2 Sat by Pulse Oximetry (%) 97 01/15/18 10:00 Constitutional: Yes: Well Nourished, Other (DYSPNEIC) Eyes: Yes: WNL HENT: Yes: WNL Neck: Yes: WNL Cardiovascular: Yes: Regular Rate and Rhythm, S1, S2 Respiratory: Yes: Wheezes (SCATTERED NIKHIL WHEEZES) Gastrointestinal: Yes: Normal Bowel Sounds, Soft Extremities: Yes: WNL Edema: No Labs: CBC, BMP 01/15/18 05:45 01/15/18 05:45 INR, PTT INR 1.38 (0.82-1.09) H 01/10/18 15:25 Problem List - Problems (1) Chronic hypoxemic respiratory failure Code(s): J96.11 - CHRONIC RESPIRATORY FAILURE WITH HYPOXIA (2) COPD (chronic obstructive pulmonary disease) Code(s): J44.9 - CHRONIC OBSTRUCTIVE PULMONARY DISEASE, UNSPECIFIED Qualifiers: COPD type: unspecified COPD Qualified Code(s): J44.9 - Chronic obstructive pulmonary disease, unspecified (3) Pancreatitis Code(s): K85.90 - ACUTE PANCREATITIS WITHOUT NECROSIS OR INFECTION, UNSP Qualifiers: Chronicity: acute Pancreatitis type: unspecified pancreatitis type Acute pancreatitis complication: unspecified Qualified Code(s): K85.90 - Acute pancreatitis without necrosis or infection, unspecified (4) Sepsis Code(s): A41.9 - SEPSIS, UNSPECIFIED ORGANISM (5) COPD (chronic obstructive pulmonary disease) Code(s): J44.9 - CHRONIC OBSTRUCTIVE PULMONARY DISEASE, UNSPECIFIED (6) FRANCISCO (acute kidney injury) Code(s): N17.9 - ACUTE KIDNEY FAILURE, UNSPECIFIED (7) Diastolic dysfunction Code(s): I51.9 - HEART DISEASE, UNSPECIFIED Assessment/Plan A/P Acute Pancreatitis improving Sepsis COPD Chronic Hypoxic Respiratory Failure CAD AV Block s/p PPPM LV Diastolic Dysfunction Acute Kidney Injury improving - antibiotics per ID - IVF - monitor urine output, creatinine - will make nebs standing, if still wheezing will consider short course of steroids - O2 to keep Spo2 >90% - DVT prophylaxis DR COLE
--- NOTE | 2018-01-15 14:43 | PN ---
Progress Note (short form) - Note Progress Note: awake and alert coughing and wheezing tolerating full liquid diet Vital Signs Period Temp Pulse Resp BP Sys/Quispe Pulse Ox Last 24 Hr 98.1 F-98.4 F 84-94 22-24 152-188/73-93 97-97 cor-rrr lungs bilateral wheeze, rhonchi abd soft,nt ext +edema CBC, BMP 01/15/18 05:45 01/15/18 05:45 Microbiology 01/10/18 15:26 Blood - Peripheral Venous Blood Culture - Preliminary NO GROWTH OBTAINED AFTER 96 HOURS, INCUBATION TO CONTINUE FOR 1 DAYS. 01/10/18 15:26 Blood - Peripheral Venous Blood Culture - Preliminary NO GROWTH OBTAINED AFTER 96 HOURS, INCUBATION TO CONTINUE FOR 1 DAYS. 01/12/18 22:15 Urine - Urine Blackmon Urine Culture - Final NO GROWTH OBTAINED 01/10/18 18:21 Stool Salmonella/Shigella Culture - Final NO GROWTH OF SALMONELLA OR SHIGELLA SPECIES OBTAINED 01/10/18 18:21 Stool Campylobacter Culture - Final NO GROWTH OF CAMPYLOBACTER SPECIES OBTAINED 01/10/18 18:21 Stool Yersinia Culture - Final NO GROWTH OF YERSINIA SPECIES OBTAINED 01/10/18 18:21 Stool Vibrio Culture - Final NO GROWTH OF VIBRIO SPECIES OBTAINED 01/10/18 18:21 Stool Escherichia coli 0157 Culture - Final NO GROWTH OF E COLI 0157 OBTAINED 01/10/18 16:00 Urine - Urine Blackmon Urine Culture - Final NO GROWTH OBTAINED 01/10/18 18:21 Stool Clostridium difficile Antigen (CARMEN) - Final 01/10/18 18:21 Stool Clostridium difficile Toxin Assay - Final cxray cardiomegaly, congestion a/p sepsis Pancreatitis improved colitis cultures negative FRANCISCO-resolved chf- fluids stopped, diuresis as needed continue rocephin/flagyl day #5 of 7 cllinically improved please call back if needed Problem List - Problems (1) Sepsis Code(s): A41.9 - SEPSIS, UNSPECIFIED ORGANISM (2) Pancreatitis Code(s): K85.90 - ACUTE PANCREATITIS WITHOUT NECROSIS OR INFECTION, UNSP Qualifiers: Chronicity: acute Pancreatitis type: unspecified pancreatitis type Acute pancreatitis complication: unspecified Qualified Code(s): K85.90 - Acute pancreatitis without necrosis or infection, unspecified (3) Colitis Code(s): K52.9 - NONINFECTIVE GASTROENTERITIS AND COLITIS, UNSPECIFIED (4) Volume overload Code(s): E87.70 - FLUID OVERLOAD, UNSPECIFIED (5) FRANCISCO (acute kidney injury) Code(s): N17.9 - ACUTE KIDNEY FAILURE, UNSPECIFIED
[2018-01-15] MEDS ORDERED: INSULIN (NOVOLOG) ASPART 100 UNITS/ML 10ML VIAL ONE (21:49)
[2018-01-15] MEDS: ATORVASTATIN CA 20 MG TABLET (FP) PO SCH (21:52)
[2018-01-15] MEDS: INSULIN (LEVEMIR) 100 UNITS/ML UNITS SQ SCH (21:53)
[2018-01-16] MEDS: INSULIN SLIDING SCALE (NOVOLOG) 1 VIAL SQ SCH ×4 (05:26→22:24)
[2018-01-16] MEDS: GABAPENTIN 300 MG CAPSULE (FP) PO SCH ×3 (05:48→22:24)
[2018-01-16] MEDS: HEPARIN NA (PORCINE) 5,000 UNITS/ML 1ML VIAL SQ SCH ×3 (05:48→22:24)
[2018-01-16] MEDS: INSULIN (LEVEMIR) 100 UNITS/ML UNITS SQ SCH ×2 (06:10→22:24)
[2018-01-16] MEDS ORDERED: INSULIN (LEVEMIR) 100 UNITS/ML UNITS SQ ONE (06:33)
[2018-01-16 07:02] LABS: ANION GAP 5 (8-16); BLOOD UREA NITROGEN 19 mg/dL (7-18); CALCIUM 8.6 mg/dL (8.5-10.1); CHLORIDE 103 mmol/L (98-107); CO2 37 mmol/L (21-32); CREATININE 1.2 mg/dL (0.7-1.3); GLUCOSE,RANDOM 150 mg/dL (74-106); POTASSIUM 4.2 mmol/L (3.5-5.1); SODIUM 145 mmol/L (136-145)
[2018-01-16] MEDS: ALBUTEROL SO4 2.5/IPRATROPIUM 0.5 INH SOL 3 ML VIAL.NEB. NEB SCH ×4 (07:57→21:05)
[2018-01-16] MEDS: TAMSULOSIN HCL 0.4 MG CAP.ER.24H (FP) PO SCH (08:45)
[2018-01-16] MEDS ORDERED: DEXTROSE 5%-WATER 100 ML IVPB ONE (09:22)
[2018-01-16] MEDS: RAMIPRIL 2.5 MG CAPSULE (FP) PO SCH (10:45)
[2018-01-16] MEDS: ASPIRIN 81 MG CHEWABLE TABLETS PO SCH (10:45)
[2018-01-16] MEDS: METOPROLOL TARTRATE 25 MG TABLET (FP) PO SCH ×2 (10:45→22:24)
[2018-01-16] MEDS: BUDESONIDE/FORMETEROL FUMARATE 160/4.5 mcg INHALER IH SCH ×2 (10:46→22:24)
[2018-01-16] MEDS: PANTOPRAZOLE 20 MG TABLET (FP) PO SCH (10:46)
--- NOTE | 2018-01-16 10:58 | PN ---
Progress Note, Physician History of Present Illness: Epigastric abdominal pain without nausea or emesis improving, tolerating full liquids, reports cough and wheezes. - Current Medication List Current Medications: Active Medications Acetaminophen (Ofirmev Injection -) 1,000 mg IVPB Q6H PRN PRN Reason: FEVER Albuterol Sulfate (Ventolin 0.083% Nebulizer Soln -) 1 amp NEB Q4H PRN PRN Reason: SHORT OF BREATH/WHEEZING Last Admin: 01/14/18 18:11 Dose: 1 amp Albuterol/Ipratropium (Duoneb -) 1 amp NEB RQID [facility] Last Admin: 01/16/18 07:57 Dose: 1 amp Aspirin (Asa -) 81 mg PO DAILY [facility] Last Admin: 01/16/18 10:45 Dose: 81 mg Atorvastatin Calcium (Lipitor -) 20 mg PO HS [facility] Last Admin: 01/15/18 21:52 Dose: 20 mg Budesonide/Formoterol Fumarate (Symbicort 160/4.5mcg -) 2 puff IH BID [facility] Last Admin: 01/16/18 10:46 Dose: 2 puff Gabapentin (Neurontin -) 600 mg PO TID [facility] Last Admin: 01/16/18 05:48 Dose: 600 mg Heparin Sodium (Porcine) (Heparin -) 5,000 unit SQ TID [facility] Last Admin: 01/16/18 05:48 Dose: 5,000 unit Ceftriaxone Sodium 2 gm/ (Dextrose) 100 mls @ 200 mls/hr IVPB DAILY [facility]; Protocol Last Admin: 01/15/18 09:51 Dose: 200 mls/hr Metronidazole (Flagyl 500mg Premixed Ivpb -) 500 mg in 100 mls @ 100 mls/hr IVPB Q8H-IV [facility] Last Admin: 01/16/18 10:46 Dose: 100 mls/hr Insulin Aspart (Novolog Vial Sliding Scale -) 1 vial SQ Q6H [facility]; Protocol Last Admin: 01/16/18 05:26 Dose: Not Given Insulin Detemir (Levemir Vial) 12 units SQ BID@0700,2000 [facility] Last Admin: 01/16/18 06:10 Dose: 12 units Metoprolol Tartrate (Lopressor -) 25 mg PO BID [facility] Last Admin: 01/16/18 10:45 Dose: 25 mg Pantoprazole Sodium (Protonix -) 20 mg PO DAILY [facility] Last Admin: 01/16/18 10:46 Dose: 20 mg Ramipril (Altace -) 2.5 mg PO DAILY [facility] Last Admin: 01/16/18 10:45 Dose: 2.5 mg Tamsulosin HCl (Flomax -) 0.4 mg PO DAILY@0830 [facility] Last Admin: 01/16/18 08:45 Dose: 0.4 mg - Objective Vital Signs: Vital Signs Temperature 97.7 F 01/16/18 06:00 Pulse Rate 72 01/16/18 06:00 Respiratory Rate 22 01/16/18 06:00 Blood Pressure 159/97 01/16/18 06:00 O2 Sat by Pulse Oximetry (%) 100 01/15/18 20:57 Constitutional: Yes: No Distress, Calm Neck: Yes: Supple Cardiovascular: Yes: Regular Rate and Rhythm Respiratory: Yes: Regular, Diminished, On Venti-Mask Gastrointestinal: Yes: Soft, Hypoactive Bowel Sounds Edema: No Labs: CBC, BMP 01/15/18 05:45 01/16/18 06:00 INR, PTT INR 1.38 (0.82-1.09) H 01/10/18 15:25 Problem List - Problems (1) FRANCISCO (acute kidney injury) Code(s): N17.9 - ACUTE KIDNEY FAILURE, UNSPECIFIED (2) Pacemaker Code(s): Z95.0 - PRESENCE OF CARDIAC PACEMAKER (3) Pancreatitis Code(s): K85.90 - ACUTE PANCREATITIS WITHOUT NECROSIS OR INFECTION, UNSP Qualifiers: Chronicity: acute Pancreatitis type: unspecified pancreatitis type Acute pancreatitis complication: unspecified Qualified Code(s): K85.90 - Acute pancreatitis without necrosis or infection, unspecified (4) Sepsis Code(s): A41.9 - SEPSIS, UNSPECIFIED ORGANISM (5) Diastolic dysfunction Code(s): I51.9 - HEART DISEASE, UNSPECIFIED (6) Demand ischemia Code(s): I24.8 - OTHER FORMS OF ACUTE ISCHEMIC HEART DISEASE (7) COPD (chronic obstructive pulmonary disease) Code(s): J44.9 - CHRONIC OBSTRUCTIVE PULMONARY DISEASE, UNSPECIFIED Qualifiers: COPD type: unspecified COPD Qualified Code(s): J44.9 - Chronic obstructive pulmonary disease, unspecified Assessment/Plan Echocardiography study was technically suboptimal which revealed normal LV size and function, LVEF 60-65%, no significant valvular pathology 1. Acute pancreatitis, resolving 2. Sepsis syndrome, resolving 3. 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 AV block post PPM 5. Probable diastolic LV dysfunction chronic class 0-I NYHA classification LV failure, clinically appears euvolemic/compensated 6. Chronic Hypoxic Respiratory Failure/COPD on home O2 therapy 7. Acute kidney injury resolving PLAN: 1. Continue Lopressor 25 bid 2. Continue Altace 2.5 qd 3. Continue Lipitor 20 qhs 4. Continue ASA 81 qd 5. Lasix prn 6. Antibiotics as per the primary team 7. Bronchodilators, O2 to keep Spo2 >90% 8. DVT and GI prophylaxis
--- NOTE | 2018-01-16 11:33 | PN ---
Progress Note (short form) - Note Progress Note: - Note Progress Note: pt seen/ examined in tele awake. coughing no abd pain Vital Signs - 24 hr 01/15/18 01/15/18 01/15/18 13:45 17:00 20:57 Temperature 98.8 F Pulse Rate 70 77 Respiratory 18 20 24 Rate Blood Pressure 137/77 O2 Sat by Pulse 100 Oximetry (%) 01/15/18 01/16/18 01/16/18 21:00 02:00 06:00 Temperature 98.4 F 98.0 F 97.7 F Pulse Rate 74 72 72 Respiratory 24 20 22 Rate Blood Pressure 159/99 154/87 159/97 O2 Sat by Pulse Oximetry (%) 01/16/18 10:00 Temperature 98.2 F Pulse Rate 77 Respiratory 20 Rate Blood Pressure 166/90 O2 Sat by Pulse Oximetry (%) Current Medications Generic Name Dose Route Start Last Admin Trade Name Freq PRN Reason Stop Dose Admin Acetaminophen 1,000 mg 01/14/18 09:53 Ofirmev Injection - IVPB Q6H PRN FEVER Albuterol Sulfate 1 amp 01/14/18 12:16 01/14/18 18:11 Ventolin 0.083% Nebulizer Soln - NEB 1 amp Q4H PRN Administration SHORT OF BREATH/WHEEZING Albuterol/Ipratropium 1 amp 01/14/18 16:00 01/16/18 11:19 Duoneb - NEB 1 amp RQID [facility] Administration Aspirin 81 mg 01/14/18 10:00 01/16/18 10:45 Asa - PO 81 mg DAILY [facility] Administration Atorvastatin Calcium 20 mg 01/14/18 22:00 01/15/18 21:52 Lipitor - PO 20 mg HS [facility] Administration Budesonide/Formoterol Fumarate 2 puff 01/14/18 10:00 01/16/18 10:46 Symbicort 160/4.5mcg - IH 2 puff BID [facility] Administration Gabapentin 600 mg 01/14/18 14:00 01/16/18 05:48 Neurontin - PO 600 mg TID [facility] Administration Heparin Sodium (Porcine) 5,000 unit 01/14/18 14:00 01/16/18 05:48 Heparin - SQ 5,000 unit TID [facility] Administration Ceftriaxone Sodium 2 gm/ 100 mls @ 200 mls/hr 01/14/18 10:00 01/15/18 09:51 Dextrose IVPB 200 mls/hr DAILY [facility] Administration Protocol Metronidazole 500 mg in 100 mls @ 100 mls/hr 01/14/18 10:00 01/16/18 10:46 Flagyl 500mg Premixed Ivpb - IVPB 100 mls/hr Q8H-IV [facility] Administration Insulin Aspart 1 vial 01/14/18 11:16 01/16/18 05:26 Novolog Vial Sliding Scale - SQ Not Given Q6H [facility] Protocol Insulin Detemir 12 units 01/15/18 22:00 01/16/18 06:10 Levemir Vial SQ 12 units BID@0700,2000 [facility] Administration Metoprolol Tartrate 25 mg 01/14/18 10:00 01/16/18 10:45 Lopressor - PO 25 mg BID [facility] Administration Pantoprazole Sodium 20 mg 01/14/18 10:00 01/16/18 10:46 Protonix - PO 20 mg DAILY [facility] Administration Ramipril 2.5 mg 01/14/18 10:00 01/16/18 10:45 Altace - PO 2.5 mg DAILY [facility] Administration Tamsulosin HCl 0.4 mg 01/15/18 08:30 01/16/18 08:45 Flomax - PO 0.4 mg DAILY@0830 [facility] Administration Laboratory Results - last 24 hr 01/15/18 01/15/18 01/15/18 05:45 11:37 17:34 Neutrophils % (Manual) 77.4 Band Neutrophils % 4.9 Lymphocytes % (Manual) 5.9 L Monocytes % (Manual) 5 Eosinophils % (Manual) 0.0 D Basophils % (Manual) 0.0 Myelocytes % (Man) 5 H Promyelocytes % (Man) 0 Blast Cells % (Manual) 0 Nucleated RBC % 1 H Metamyelocytes 1 Platelet Estimate Adequate Polychromasia 1+ Basophilic Stippling 1+ Anisocytosis 1+ Sodium Potassium Chloride Carbon Dioxide Anion Gap BUN Creatinine Creat Clearance w eGFR POC Glucometer 255 195 Random Glucose Calcium 01/15/18 01/16/18 01/16/18 21:52 05:07 06:00 Neutrophils % (Manual) Band Neutrophils % Lymphocytes % (Manual) Monocytes % (Manual) Eosinophils % (Manual) Basophils % (Manual) Myelocytes % (Man) Promyelocytes % (Man) Blast Cells % (Manual) Nucleated RBC % Metamyelocytes Platelet Estimate Polychromasia Basophilic Stippling Anisocytosis Sodium 145 Potassium 4.2 Chloride 103 Carbon Dioxide 37 H Anion Gap 5 L BUN 19 H Creatinine 1.2 Creat Clearance w eGFR 58.26 POC Glucometer 196 142 Random Glucose 150 H D Calcium 8.6 Physical Exam. Constitutional: Yes: No Distress, Calm. Cardiovascular: Yes: Regular Rate and Rhythm Respiratory: Yes: Diminished, rales and ronchi diffuse+ Gastrointestinal: Yes: Normal Bowel Sounds, Soft, Edema: No Problem List - Problems (1) FRANCISCO (acute kidney injury) Code(s): N17.9 - ACUTE KIDNEY FAILURE, UNSPECIFIED (2) Colitis Code(s): K52.9 - NONINFECTIVE GASTROENTERITIS AND COLITIS, UNSPECIFIED (3) Sepsis Code(s): A41.9 - SEPSIS, UNSPECIFIED ORGANISM (4) Severe sepsis Code(s): A41.9 - SEPSIS, UNSPECIFIED ORGANISM; R65.20 - SEVERE SEPSIS WITHOUT SEPTIC SHOCK (5) Volume overload Code(s): E87.70 - FLUID OVERLOAD, UNSPECIFIED Assessment/Plan Clinically better Pancreatitis-- better volume overload Sepsis Continue present care - IV Fluids dc -- iv antibiotics -- echo -- nebs -- iv Lasix today and will monitor response - spoke with Cardiology -- ivLasix PRN basis -- may need steroids -tolerating diet Problem List - Problems (1) FRANCISCO (acute kidney injury) Code(s): N17.9 - ACUTE KIDNEY FAILURE, UNSPECIFIED (2) Colitis Code(s): K52.9 - NONINFECTIVE GASTROENTERITIS AND COLITIS, UNSPECIFIED (3) Sepsis Code(s): A41.9 - SEPSIS, UNSPECIFIED ORGANISM (4) Severe sepsis Code(s): A41.9 - SEPSIS, UNSPECIFIED ORGANISM; R65.20 - SEVERE SEPSIS WITHOUT SEPTIC SHOCK (5) Volume overload Code(s): E87.70 - FLUID OVERLOAD, UNSPECIFIED
[2018-01-16] MEDS: CEFTRIAXONE 2 GM in DEXTROSE 5%-WATER 100 ML IVPB SCH (11:53)
[2018-01-16] MEDS ORDERED: FUROSEMIDE 40 MG/4 ML INJECTABLE VIAL IVPUSH ONE (12:15)
--- NOTE | 2018-01-16 13:11 | PN ---
Progress Note (short form) - Note Progress Note: PULMONARY Breathing better today. No cough or wheezing. Vital Signs Period Temp Pulse Resp BP Sys/Quispe Pulse Ox Last 24 Hr 97.7 F-98.8 F 70-77 18-24 137-166/77-99 100 Gen: less tachypneic at rest Heart: RRR Lung: decreased breath sounds at the bases Abd: soft, nontender, obese Ext: no edema CBC, BMP 01/15/18 05:45 01/16/18 06:00 Active Medications Acetaminophen (Ofirmev Injection -) 1,000 mg IVPB Q6H PRN PRN Reason: FEVER Albuterol Sulfate (Ventolin 0.083% Nebulizer Soln -) 1 amp NEB Q4H PRN PRN Reason: SHORT OF BREATH/WHEEZING Last Admin: 01/14/18 18:11 Dose: 1 amp Albuterol/Ipratropium (Duoneb -) 1 amp NEB RQID [facility] Last Admin: 01/16/18 11:19 Dose: 1 amp Aspirin (Asa -) 81 mg PO DAILY [facility] Last Admin: 01/16/18 10:45 Dose: 81 mg Atorvastatin Calcium (Lipitor -) 20 mg PO HS [facility] Last Admin: 01/15/18 21:52 Dose: 20 mg Budesonide/Formoterol Fumarate (Symbicort 160/4.5mcg -) 2 puff IH BID [facility] Last Admin: 01/16/18 10:46 Dose: 2 puff Gabapentin (Neurontin -) 600 mg PO TID [facility] Last Admin: 01/16/18 13:03 Dose: 600 mg Heparin Sodium (Porcine) (Heparin -) 5,000 unit SQ TID [facility] Last Admin: 01/16/18 13:03 Dose: 5,000 unit Ceftriaxone Sodium 2 gm/ (Dextrose) 100 mls @ 200 mls/hr IVPB DAILY [facility]; Protocol Last Admin: 01/16/18 11:53 Dose: 200 mls/hr Metronidazole (Flagyl 500mg Premixed Ivpb -) 500 mg in 100 mls @ 100 mls/hr IVPB Q8H-IV [facility] Last Admin: 01/16/18 10:46 Dose: 100 mls/hr Insulin Aspart (Novolog Vial Sliding Scale -) 1 vial SQ Q6H [facility]; Protocol Last Admin: 01/16/18 12:55 Dose: 1 vial Insulin Detemir (Levemir Vial) 12 units SQ BID@0700,1999 [facility] Last Admin: 01/16/18 06:10 Dose: 12 units Metoprolol Tartrate (Lopressor -) 25 mg PO BID [facility] Last Admin: 01/16/18 10:45 Dose: 25 mg Pantoprazole Sodium (Protonix -) 20 mg PO DAILY [facility] Last Admin: 01/16/18 10:46 Dose: 20 mg Ramipril (Altace -) 2.5 mg PO DAILY [facility] Last Admin: 01/16/18 10:45 Dose: 2.5 mg Tamsulosin HCl (Flomax -) 0.4 mg PO DAILY@0830 [facility] Last Admin: 01/16/18 08:45 Dose: 0.4 mg A/P Acute Pancreatitis improving Sepsis COPD Chronic Hypoxic Respiratory Failure CAD AV Block s/p PPPM LV Diastolic Dysfunction Acute Kidney Injury improving - antibiotics per ID - monitor urine output, creatinine - inhaled bronchodilators - O2 to keep Spo2 >90% - DVT prophylaxis
[2018-01-16] MEDS ORDERED: ACETAMINOPHEN 325 MG TABLET (FP) PO PRN (15:12)
[2018-01-16] MEDS ORDERED: PT OWN MED DRAWER 7, Y5N ONE (22:15)
[2018-01-16] MEDS: ATORVASTATIN CA 20 MG TABLET (FP) PO SCH (22:24)
[2018-01-17] MEDS: GABAPENTIN 300 MG CAPSULE (FP) PO SCH ×3 (05:16→21:01)
[2018-01-17] MEDS: HEPARIN NA (PORCINE) 5,000 UNITS/ML 1ML VIAL SQ SCH ×3 (05:16→21:02)
[2018-01-17] MEDS: INSULIN SLIDING SCALE (NOVOLOG) 1 VIAL SQ SCH ×4 (05:28→22:25)
[2018-01-17] MEDS: INSULIN (LEVEMIR) 100 UNITS/ML UNITS SQ SCH ×2 (06:00→21:00)
[2018-01-17 07:01] LABS: ANION GAP 3 (8-16); BLOOD UREA NITROGEN 16 mg/dL (7-18); CALCIUM 8.3 mg/dL (8.5-10.1); CHLORIDE 99 mmol/L (98-107); CO2 38 mmol/L (21-32); CREATININE 1.1 mg/dL (0.7-1.3); GLUCOSE,RANDOM 165 mg/dL (74-106); POTASSIUM 3.9 mmol/L (3.5-5.1); SODIUM 140 mmol/L (136-145)
[2018-01-17] MEDS: ALBUTEROL SO4 2.5/IPRATROPIUM 0.5 INH SOL 3 ML VIAL.NEB. NEB SCH ×4 (07:46→15:39)
--- NOTE | 2018-01-17 09:07 | PN ---
Progress Note, Physician History of Present Illness: Epigastric abdominal pain without nausea or emesis improving, tolerating full liquids, reports cough and wheezes on 40% VM. - Current Medication List Current Medications: Active Medications Acetaminophen (Tylenol -) 650 mg PO Q4H PRN PRN Reason: FEVER Albuterol Sulfate (Ventolin 0.083% Nebulizer Soln -) 1 amp NEB Q4H PRN PRN Reason: SHORT OF BREATH/WHEEZING Last Admin: 01/14/18 18:11 Dose: 1 amp Albuterol/Ipratropium (Duoneb -) 1 amp NEB RQID [facility] Last Admin: 01/17/18 07:46 Dose: 1 amp Aspirin (Asa -) 81 mg PO DAILY [facility] Last Admin: 01/16/18 10:45 Dose: 81 mg Atorvastatin Calcium (Lipitor -) 20 mg PO HS [facility] Last Admin: 01/16/18 22:24 Dose: 20 mg Budesonide/Formoterol Fumarate (Symbicort 160/4.5mcg -) 2 puff IH BID [facility] Last Admin: 01/16/18 22:24 Dose: 2 puff Gabapentin (Neurontin -) 600 mg PO TID [facility] Last Admin: 01/17/18 05:16 Dose: 600 mg Heparin Sodium (Porcine) (Heparin -) 5,000 unit SQ TID [facility] Last Admin: 01/17/18 05:16 Dose: 5,000 unit Ceftriaxone Sodium 2 gm/ (Dextrose) 100 mls @ 200 mls/hr IVPB DAILY [facility]; Protocol Last Admin: 01/16/18 11:53 Dose: 200 mls/hr Metronidazole (Flagyl 500mg Premixed Ivpb -) 500 mg in 100 mls @ 100 mls/hr IVPB Q8H-IV [facility] Last Admin: 01/17/18 02:24 Dose: 100 mls/hr Insulin Aspart (Novolog Vial Sliding Scale -) 1 vial SQ Q6H [facility]; Protocol Last Admin: 01/17/18 05:28 Dose: Not Given Insulin Detemir (Levemir Vial) 12 units SQ BID@0700,2000 [facility] Last Admin: 01/17/18 06:00 Dose: 12 units Metoprolol Tartrate (Lopressor -) 25 mg PO BID [facility] Last Admin: 01/16/18 22:24 Dose: 25 mg Pantoprazole Sodium (Protonix -) 20 mg PO DAILY [facility] Last Admin: 01/16/18 10:46 Dose: 20 mg Ramipril (Altace -) 2.5 mg PO DAILY [facility] Last Admin: 01/16/18 10:45 Dose: 2.5 mg Tamsulosin HCl (Flomax -) 0.4 mg PO DAILY@0830 [facility] Last Admin: 01/16/18 08:45 Dose: 0.4 mg - Objective Vital Signs: Vital Signs Temperature 98.0 F 01/17/18 05:59 Pulse Rate 74 01/17/18 05:59 Respiratory Rate 22 01/17/18 05:59 Blood Pressure 160/98 01/17/18 05:59 O2 Sat by Pulse Oximetry (%) 98 01/17/18 07:22 Constitutional: Yes: No Distress, Calm Neck: Yes: Supple Cardiovascular: Yes: Regular Rate and Rhythm, Varicosities Respiratory: Yes: Diminished, On Venti-Mask Gastrointestinal: Yes: Soft, Abdomen, Obese, Hypoactive Bowel Sounds, Tenderness , Epigastrium Edema: No Labs: CBC, BMP 01/15/18 05:45 01/17/18 05:35 INR, PTT INR 1.38 (0.82-1.09) H 01/10/18 15:25 Problem List - Problems (1) Pacemaker Code(s): Z95.0 - PRESENCE OF CARDIAC PACEMAKER (2) Pancreatitis Code(s): K85.90 - ACUTE PANCREATITIS WITHOUT NECROSIS OR INFECTION, UNSP Qualifiers: Chronicity: acute Pancreatitis type: unspecified pancreatitis type Acute pancreatitis complication: unspecified Qualified Code(s): K85.90 - Acute pancreatitis without necrosis or infection, unspecified (3) Diastolic dysfunction Code(s): I51.9 - HEART DISEASE, UNSPECIFIED (4) Demand ischemia Code(s): I24.8 - OTHER FORMS OF ACUTE ISCHEMIC HEART DISEASE (5) COPD (chronic obstructive pulmonary disease) Code(s): J44.9 - CHRONIC OBSTRUCTIVE PULMONARY DISEASE, UNSPECIFIED Qualifiers: COPD type: unspecified COPD Qualified Code(s): J44.9 - Chronic obstructive pulmonary disease, unspecified Assessment/Plan Echocardiography study was technically suboptimal which revealed normal LV size and function, LVEF 60-65%, no significant valvular pathology 1. Acute pancreatitis, resolving 2. Sepsis syndrome, resolved 3. 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 AV block post PPM 5. Probable diastolic LV dysfunction chronic class 0-I NYHA classification LV failure, clinically appears euvolemic/compensated 6. Chronic Hypoxic Respiratory Failure/COPD on home O2 therapy 7. Acute kidney injury resolving PLAN: 1. Continue Lopressor 25 bid 2. Continue Altace 2.5 qd 3. Continue Lipitor 20 qhs 4. Continue ASA 81 qd 5. Lasix prn 6. Antibiotics as per ID 7. Bronchodilators, O2 to keep Spo2 >90% 8. DVT and GI prophylaxis
[2018-01-17] MEDS ORDERED: PT OWN MED DRAWER 7, Y5N ONE (10:15)
[2018-01-17] MEDS ORDERED: DEXTROSE 5%-WATER 100 ML IVPB ONE (10:16)
[2018-01-17] MEDS: BUDESONIDE/FORMETEROL FUMARATE 160/4.5 mcg INHALER IH SCH ×2 (10:22→22:21)
[2018-01-17] MEDS: CEFTRIAXONE 2 GM in DEXTROSE 5%-WATER 100 ML IVPB SCH (10:22)
[2018-01-17] MEDS: PANTOPRAZOLE 20 MG TABLET (FP) PO SCH (10:23)
[2018-01-17] MEDS: RAMIPRIL 2.5 MG CAPSULE (FP) PO SCH (10:23)
[2018-01-17] MEDS: TAMSULOSIN HCL 0.4 MG CAP.ER.24H (FP) PO SCH (10:23)
[2018-01-17] MEDS: METOPROLOL TARTRATE 25 MG TABLET (FP) PO SCH (10:23)
[2018-01-17] MEDS: ASPIRIN 81 MG CHEWABLE TABLETS PO SCH (10:24)
--- NOTE | 2018-01-17 11:05 | PN ---
Progress Note (short form) - Note Progress Note: pt seen/ examined . chart reviewed runs of non sustained vt on monitor all f/u noted on vm awake. no distress chronic ill appearance. Vital Signs Temp 98.0 F 01/17/18 05:59 Pulse 74 01/17/18 05:59 Resp 22 01/17/18 09:00 BP 160/98 01/17/18 05:59 Pulse Ox 96 01/17/18 09:00 Intake & Output 01/16/18 01/16/18 01/17/18 11:59 23:59 11:59 Intake Total 1000 340 Balance 1000 340 Intake: IV 400 100 saline lock 400 100 Oral 600 240 Other: Voiding Method Diaper Diaper Diaper # Unmeasured Voids Blackmon 2 3 Void 2 4 Bowel Movement Yes No # Bowel Movements 1 Active Medications Acetaminophen (Tylenol -) 650 mg PO Q4H PRN PRN Reason: FEVER Last Admin: 01/17/18 10:22 Dose: 650 mg Albuterol Sulfate (Ventolin 0.083% Nebulizer Soln -) 1 amp NEB Q4H PRN PRN Reason: SHORT OF BREATH/WHEEZING Last Admin: 01/14/18 18:11 Dose: 1 amp Albuterol/Ipratropium (Duoneb -) 1 amp NEB RQID [facility] Last Admin: 01/17/18 11:01 Dose: 1 amp Aspirin (Asa -) 81 mg PO DAILY [facility] Last Admin: 01/17/18 10:24 Dose: 81 mg Atorvastatin Calcium (Lipitor -) 20 mg PO HS [facility] Last Admin: 01/16/18 22:24 Dose: 20 mg Budesonide/Formoterol Fumarate (Symbicort 160/4.5mcg -) 2 puff IH BID [facility] Last Admin: 01/17/18 10:22 Dose: 2 puff Gabapentin (Neurontin -) 600 mg PO TID [facility] Last Admin: 01/17/18 05:16 Dose: 600 mg Heparin Sodium (Porcine) (Heparin -) 5,000 unit SQ TID [facility] Last Admin: 01/17/18 05:16 Dose: 5,000 unit Ceftriaxone Sodium 2 gm/ (Dextrose) 100 mls @ 200 mls/hr IVPB DAILY [facility]; Protocol Last Admin: 01/17/18 10:22 Dose: 200 mls/hr Metronidazole (Flagyl 500mg Premixed Ivpb -) 500 mg in 100 mls @ 100 mls/hr IVPB Q8H-IV [facility] Last Admin: 01/17/18 10:24 Dose: 100 mls/hr Insulin Aspart (Novolog Vial Sliding Scale -) 1 vial SQ Q6H [facility]; Protocol Last Admin: 01/17/18 05:28 Dose: Not Given Insulin Detemir (Levemir Vial) 12 units SQ BID@0700,2000 [facility] Last Admin: 01/17/18 06:00 Dose: 12 units Metoprolol Tartrate (Lopressor -) 25 mg PO BID [facility] Last Admin: 01/17/18 10:23 Dose: 25 mg Pantoprazole Sodium (Protonix -) 20 mg PO DAILY [facility] Last Admin: 01/17/18 10:23 Dose: 20 mg Ramipril (Altace -) 2.5 mg PO DAILY [facility] Last Admin: 01/17/18 10:23 Dose: 2.5 mg Tamsulosin HCl (Flomax -) 0.4 mg PO DAILY@0830 [facility] Last Admin: 01/17/18 10:23 Dose: 0.4 mg CBC, BMP 01/15/18 05:45 01/17/18 05:35 Physical Exam. Constitutional: Yes: No Distress, mild distress. Cardiovascular: Yes: Regular Rate and Rhythm Respiratory: Yes: Diminished, bilateral wheezes Gastrointestinal: Yes: Normal Bowel Sounds, Soft, non tender Edema: No Problem List - Problems (1) FRANCISCO (acute kidney injury) Code(s): N17.9 - ACUTE KIDNEY FAILURE, UNSPECIFIED (2) Colitis Code(s): K52.9 - NONINFECTIVE GASTROENTERITIS AND COLITIS, UNSPECIFIED (3) Sepsis Code(s): A41.9 - SEPSIS, UNSPECIFIED ORGANISM (4) Severe sepsis Code(s): A41.9 - SEPSIS, UNSPECIFIED ORGANISM; R65.20 - SEVERE SEPSIS WITHOUT SEPTIC SHOCK (5) Volume overload Code(s): E87.70 - FLUID OVERLOAD, UNSPECIFIED Assessment/Plan Clinically better Pancreatitis-- better continue antibiotics -- iv antibiotics blood pressure on the high side increase Altace Nonsustained VT Cardiology on the case Medications reviewed check magnesium level Condition improved but guarded Continue nebulizer treatment Pulmonary following also Will follow
--- NOTE | 2018-01-17 11:29 | PN ---
Progress Note, Physician History of Present Illness: PULMONARY ALERT,STILL CONGESTED,DYSPNEIC,+WHEEZES - Current Medication List Current Medications: Active Medications Acetaminophen (Tylenol -) 650 mg PO Q4H PRN PRN Reason: FEVER Last Admin: 01/17/18 10:22 Dose: 650 mg Albuterol Sulfate (Ventolin 0.083% Nebulizer Soln -) 1 amp NEB Q4H PRN PRN Reason: SHORT OF BREATH/WHEEZING Last Admin: 01/14/18 18:11 Dose: 1 amp Albuterol/Ipratropium (Duoneb -) 1 amp NEB RQID [facility] Last Admin: 01/17/18 11:01 Dose: 1 amp Aspirin (Asa -) 81 mg PO DAILY [facility] Last Admin: 01/17/18 10:24 Dose: 81 mg Atorvastatin Calcium (Lipitor -) 20 mg PO HS [facility] Last Admin: 01/16/18 22:24 Dose: 20 mg Budesonide/Formoterol Fumarate (Symbicort 160/4.5mcg -) 2 puff IH BID [facility] Last Admin: 01/17/18 10:22 Dose: 2 puff Gabapentin (Neurontin -) 600 mg PO TID [facility] Last Admin: 01/17/18 05:16 Dose: 600 mg Heparin Sodium (Porcine) (Heparin -) 5,000 unit SQ TID [facility] Last Admin: 01/17/18 05:16 Dose: 5,000 unit Ceftriaxone Sodium 2 gm/ (Dextrose) 100 mls @ 200 mls/hr IVPB DAILY [facility]; Protocol Last Admin: 01/17/18 10:22 Dose: 200 mls/hr Metronidazole (Flagyl 500mg Premixed Ivpb -) 500 mg in 100 mls @ 100 mls/hr IVPB Q8H-IV [facility] Last Admin: 01/17/18 10:24 Dose: 100 mls/hr Insulin Aspart (Novolog Vial Sliding Scale -) 1 vial SQ Q6H [facility]; Protocol Last Admin: 01/17/18 05:28 Dose: Not Given Insulin Detemir (Levemir Vial) 12 units SQ BID@0700,2000 [facility] Last Admin: 01/17/18 06:00 Dose: 12 units Metoprolol Tartrate (Lopressor -) 25 mg PO BID [facility] Last Admin: 01/17/18 10:23 Dose: 25 mg Pantoprazole Sodium (Protonix -) 20 mg PO DAILY [facility] Last Admin: 01/17/18 10:23 Dose: 20 mg Ramipril (Altace -) 5 mg PO DAILY [facility] Tamsulosin HCl (Flomax -) 0.4 mg PO DAILY@0830 [facility] Last Admin: 01/17/18 10:23 Dose: 0.4 mg - Objective Vital Signs: Vital Signs Temperature 98.0 F 01/17/18 05:59 Pulse Rate 74 01/17/18 05:59 Respiratory Rate 22 01/17/18 09:00 Blood Pressure 160/98 01/17/18 05:59 O2 Sat by Pulse Oximetry (%) 96 01/17/18 09:00 Constitutional: Yes: Well Nourished, Other (DYSPNEIC) Eyes: Yes: WNL HENT: Yes: WNL Neck: Yes: WNL Cardiovascular: Yes: Pulse Irregular, S1, S2 Respiratory: Yes: Wheezes (NIKHIL WHEEZES) Gastrointestinal: Yes: Soft, Tenderness Extremities: Yes: WNL Edema: No Labs: CBC, BMP 01/15/18 05:45 01/17/18 05:35 INR, PTT INR 1.38 (0.82-1.09) H 01/10/18 15:25 Problem List - Problems (1) Chronic hypoxemic respiratory failure Code(s): J96.11 - CHRONIC RESPIRATORY FAILURE WITH HYPOXIA (2) COPD (chronic obstructive pulmonary disease) Code(s): J44.9 - CHRONIC OBSTRUCTIVE PULMONARY DISEASE, UNSPECIFIED Qualifiers: COPD type: unspecified COPD Qualified Code(s): J44.9 - Chronic obstructive pulmonary disease, unspecified (3) Pancreatitis Code(s): K85.90 - ACUTE PANCREATITIS WITHOUT NECROSIS OR INFECTION, UNSP Qualifiers: Chronicity: acute Pancreatitis type: unspecified pancreatitis type Acute pancreatitis complication: unspecified Qualified Code(s): K85.90 - Acute pancreatitis without necrosis or infection, unspecified (4) Sepsis Code(s): A41.9 - SEPSIS, UNSPECIFIED ORGANISM (5) COPD (chronic obstructive pulmonary disease) Code(s): J44.9 - CHRONIC OBSTRUCTIVE PULMONARY DISEASE, UNSPECIFIED (6) FRANCISCO (acute kidney injury) Code(s): N17.9 - ACUTE KIDNEY FAILURE, UNSPECIFIED (7) Diastolic dysfunction Code(s): I51.9 - HEART DISEASE, UNSPECIFIED Assessment/Plan A/P Acute Pancreatitis improving Sepsis COPD Chronic Hypoxic Respiratory Failure CAD AV Block s/p PPPM LV Diastolic Dysfunction Acute Kidney Injury improving - antibiotics per ID - IVF - monitor urine output, creatinine - O2 to keep Spo2 >90% - DVT prophylaxis - short course of medrol DR COLE
[2018-01-17] MEDS: methylPREDNISolone NA SUCC 40 MG/1 ML VIAL IVPUSH SCH ×3 (12:30→20:46)
[2018-01-17] MEDS ORDERED: POTASSIUM CHLORIDE TABS 20 MEQ TABLET.ER (FP) PO ONE (12:51)
[2018-01-17] MEDS ORDERED: METOPROLOL TARTRATE 25 MG TABLET (FP) PO ONE (12:53)
[2018-01-17 14:02] LABS: MAGNESIUM 1.9 mg/dL (1.8-2.4)
[2018-01-17] MEDS: ATORVASTATIN CA 20 MG TABLET (FP) PO SCH (21:01)
[2018-01-17] MEDS: METOPROLOL TARTRATE 50 MG TABLET (FP) PO SCH (21:01)
[2018-01-17] MEDS: ALBUTEROL SO4 0.083% IH SOL 2.5 MG/3 ML VIAL.NEB. NEB PRN (22:32)
[2018-01-18] MEDS: methylPREDNISolone NA SUCC 40 MG/1 ML VIAL IVPUSH SCH ×3 (02:12→17:14)
[2018-01-18] MEDS: INSULIN SLIDING SCALE (NOVOLOG) 1 VIAL SQ SCH ×4 (06:03→22:41)
[2018-01-18] MEDS: GABAPENTIN 300 MG CAPSULE (FP) PO SCH ×3 (06:05→22:33)
[2018-01-18] MEDS: HEPARIN NA (PORCINE) 5,000 UNITS/ML 1ML VIAL SQ SCH ×3 (06:05→22:30)
[2018-01-18] MEDS: INSULIN (LEVEMIR) 100 UNITS/ML UNITS SQ SCH ×2 (06:06→20:30)
[2018-01-18 07:04] LABS: BASO % 0.2 % (0-2.0); HEMATOCRIT 35.4 % (35.4-49); HEMOGLOBIN 11.7 GM/dL (11.7-16.9); LYMPH % 5.3 % (8-40); MCH 30.8 pg (25.7-33.7); MEAN CELL VOLUME 93.3 fl (80-96); MEAN PLT VOLUME 10.4 fl (7.5-11.1); MONO % 2.8 % (3.8-10.2); NEUT % 91.7 % (42.8-82.8); PLATELET COUNT 306 K/MM3 (134-434); RBC 3.79 M/mm3 (4.00-5.60); RDW 14.9 % (11.9-15.9); WHITE BLOOD COUNT 13.6 K/mm3 (4.0-10.0)
[2018-01-18 07:39] LABS: ALBUMIN 2.4 g/dl (3.4-5.0); ALK PHOS 88 U/L (45-117); ANION GAP 3 (8-16); BILIRUBIN,TOTAL 0.3 mg/dL (0.2-1.0); BLOOD UREA NITROGEN 17 mg/dL (7-18); CALCIUM 8.9 mg/dL (8.5-10.1); CHLORIDE 99 mmol/L (98-107); CO2 37 mmol/L (21-32); CREATININE 1.1 mg/dL (0.7-1.3); GLUCOSE,RANDOM 198 mg/dL (74-106); POTASSIUM 4.9 mmol/L (3.5-5.1); SGOT/AST 25 U/L (15-37); SGPT/ALT 27 U/L (12-78); SODIUM 139 mmol/L (136-145); TOT PROT 6.5 g/dl (6.4-8.2)
[2018-01-18] MEDS: ALBUTEROL SO4 2.5/IPRATROPIUM 0.5 INH SOL 3 ML VIAL.NEB. NEB SCH ×4 (08:00→20:55)
[2018-01-18] MEDS ORDERED: DEXTROSE 5%-WATER 100 ML IVPB ONE (08:34)
[2018-01-18] MEDS: ASPIRIN 81 MG CHEWABLE TABLETS PO SCH (09:13)
[2018-01-18] MEDS: TAMSULOSIN HCL 0.4 MG CAP.ER.24H (FP) PO SCH (09:13)
[2018-01-18] MEDS: PANTOPRAZOLE 20 MG TABLET (FP) PO SCH (09:14)
[2018-01-18] MEDS: CEFTRIAXONE 2 GM in DEXTROSE 5%-WATER 100 ML IVPB SCH (09:14)
[2018-01-18] MEDS: METOPROLOL TARTRATE 50 MG TABLET (FP) PO SCH ×2 (09:14→22:33)
[2018-01-18] MEDS: RAMIPRIL 5 MG CAPSULE (FP) PO SCH (09:14)
[2018-01-18] MEDS: BUDESONIDE/FORMETEROL FUMARATE 160/4.5 mcg INHALER IH SCH ×2 (09:15→22:41)
[2018-01-18 09:26] LABS: ANISOCYTOSIS 0; MACROCYTOSIS 0; PLATELET ESTIMATE NORMAL
--- NOTE | 2018-01-18 10:43 | PN ---
Progress Note (short form) - Note Progress Note: Chief Complaint: Events noted, notes reviewed, dyspnea noted denies any chest discomfort, abdominal discomfort resolved, denies nausea or vomiting History of Present Illness: Seen and examined on telemetry. Events noted, notes reviewed, dyspnea noted denies any chest discomfort, abdominal discomfort resolved, denies nausea or vomiting Steroids resumed Echocardiography study was technically suboptimal which revealed normal LV size and function, LVEF 60-65%, no significant valvular pathology - Current Medication List Current Medications: Active Medications Current Medications Acetaminophen (Tylenol -) 650 mg PO Q4H PRN PRN Reason: FEVER Last Admin: 01/17/18 10:22 Dose: 650 mg Albuterol Sulfate (Ventolin 0.083% Nebulizer Soln -) 1 amp NEB Q4H PRN PRN Reason: SHORT OF BREATH/WHEEZING Last Admin: 01/17/18 22:32 Dose: 1 amp Albuterol/Ipratropium (Duoneb -) 1 amp NEB RQID [facility] Last Admin: 01/18/18 08:00 Dose: 1 amp Aspirin (Asa -) 81 mg PO DAILY [facility] Last Admin: 01/18/18 09:13 Dose: 81 mg Atorvastatin Calcium (Lipitor -) 20 mg PO HS [facility] Last Admin: 01/17/18 21:01 Dose: 20 mg Budesonide/Formoterol Fumarate (Symbicort 160/4.5mcg -) 2 puff IH BID [facility] Last Admin: 01/18/18 09:15 Dose: 2 puff Gabapentin (Neurontin -) 600 mg PO TID [facility] Last Admin: 01/18/18 06:05 Dose: 600 mg Heparin Sodium (Porcine) (Heparin -) 5,000 unit SQ TID [facility] Last Admin: 01/18/18 06:05 Dose: 5,000 unit Ceftriaxone Sodium 2 gm/ (Dextrose) 100 mls @ 200 mls/hr IVPB DAILY [facility]; Protocol Last Admin: 01/18/18 09:14 Dose: 200 mls/hr Metronidazole (Flagyl 500mg Premixed Ivpb -) 500 mg in 100 mls @ 100 mls/hr IVPB Q8H-IV [facility] Last Admin: 01/18/18 09:14 Dose: 100 mls/hr Insulin Aspart (Novolog Vial Sliding Scale -) 1 vial SQ Q6H [facility]; Protocol Last Admin: 01/18/18 06:03 Dose: 2 units Insulin Detemir (Levemir Vial) 12 units SQ BID@0700,1999 [facility] Last Admin: 01/18/18 06:06 Dose: 12 units Methylprednisolone Sodium Succinate (Solu-Medrol -) 40 mg IVPUSH Q6H-IV [facility] Last Admin: 01/18/18 09:14 Dose: 40 mg Metoprolol Tartrate (Lopressor -) 50 mg PO BID [facility] Last Admin: 01/18/18 09:14 Dose: 50 mg Pantoprazole Sodium (Protonix -) 20 mg PO DAILY [facility] Last Admin: 01/18/18 09:14 Dose: 20 mg Ramipril (Altace -) 5 mg PO DAILY [facility] Last Admin: 01/18/18 09:14 Dose: 5 mg Tamsulosin HCl (Flomax -) 0.4 mg PO DAILY@0830 [facility] Last Admin: 01/18/18 09:13 Dose: 0.4 mg Review Of Systems: HEENT: denies: headache, photophobia, blurring of vision CARD: as noted above RESP: reports: cough and sputum production denies: hemoptysis ABD: denies: nausea, vomiting, diarrhea, melena, hematemesis or abdominal discomfort MUSC: denies: joint pains NEURO: denies: headache, lightheadedness - Objective Vital Signs: Last Vital Signs Temp Pulse Resp BP Pulse Ox 98.9 F 68 22 166/98 95 01/18/18 06:00 01/18/18 06:00 01/18/18 06:00 01/18/18 06:00 01/18/18 03:36 Intake & Output 01/15/18 01/16/18 01/17/18 01/18/18 23:59 23:59 23:59 23:59 Intake Total 830 1000 490 120 Balance 830 1000 490 120 Eyes: CHRYSTAL, EOMI Neck: Supple Negative JVD Cardiovascular: S1 S2 Regular Rate and Rhythm Respiratory: Diminished at the Bases with Bilateral Scattered Rhonchi Gastrointestinal: Soft Benign Normal Bowel Sounds No: Tenderness Ext: No Edema Labs: CBC, BMP 01/18/18 05:45 01/18/18 05:45 Hepatic Panel Total Bilirubin 0.3 mg/dL (0.2-1.0) 01/18/18 05:45 Direct Bilirubin 0.3 mg/dL (0.0-0.2) H D 07/29/18 05:30 AST 25 U/L (15-37) D 01/18/18 05:45 ALT 27 U/L (12-78) 01/18/18 05:45 Alkaline Phosphatase 88 U/L (45-117) 01/18/18 05:45 Albumin 2.4 g/dl (3.4-5.0) L 01/18/18 05:45 Assessment/Plan ASSESSMENT: 1. Acute pancreatitis, resolving 2. Sepsis syndrome, resolved 3. 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 AV block post PPM 5. Diastolic LV dysfunction chronic class 0-I NYHA classification LV failure, clinically appears euvolemic/compensated, 6. Hypertension not at goal 7. Reactive airway disease/COPD on home O2 therapy with exacerbation, persistently abnormal chest x-ray, resumed steroids 8. Acute kidney injury resolving PLAN: 1. Continue Lopressor 2. Continue Altace and titrate dosage as needed and as tolerated 3. Continue Lipitor 4. Continue ASA 5. Lasix prn 6. Antibiotics as per the primary team 7. Bronchodilators and steroids as per pulmonary team 8. Recommend out of bed and ambulation Catalina Mckeon MD
--- NOTE | 2018-01-18 13:12 | PN ---
Progress Note (short form) - Note Progress Note: patient seen and examined. Sitting in chair. looks and feels better Able to walk with assistance today. Decreased shortness of breath Denies chest pain Afebrile Vital Signs Temp 98.9 F 01/18/18 06:00 Pulse 68 01/18/18 06:00 Resp 22 01/18/18 10:00 BP 166/98 01/18/18 06:00 Pulse Ox 94 L 01/18/18 10:00 Intake & Output 01/17/18 01/18/18 01/18/18 23:59 11:59 23:59 Intake Total 150 120 Balance 150 120 Intake: IV 20 LFA #22g / 20 Oral 150 100 Other: Voiding Method Diaper Diaper # Unmeasured Voids [place] 2 Void 1 1 Bowel Movement Yes Yes # Bowel Movements 1 1 Active Medications Acetaminophen (Tylenol -) 650 mg PO Q4H PRN PRN Reason: FEVER Last Admin: 01/17/18 10:22 Dose: 650 mg Albuterol Sulfate (Ventolin 0.083% Nebulizer Soln -) 1 amp NEB Q4H PRN PRN Reason: SHORT OF BREATH/WHEEZING Last Admin: 01/17/18 22:32 Dose: 1 amp Albuterol/Ipratropium (Duoneb -) 1 amp NEB RQID [facility] Last Admin: 01/18/18 11:29 Dose: 1 amp Aspirin (Asa -) 81 mg PO DAILY [facility] Last Admin: 01/18/18 09:13 Dose: 81 mg Atorvastatin Calcium (Lipitor -) 20 mg PO HS [facility] Last Admin: 01/17/18 21:01 Dose: 20 mg Budesonide/Formoterol Fumarate (Symbicort 160/4.5mcg -) 2 puff IH BID [facility] Last Admin: 01/18/18 09:15 Dose: 2 puff Gabapentin (Neurontin -) 600 mg PO TID [facility] Last Admin: 01/18/18 13:05 Dose: 600 mg Heparin Sodium (Porcine) (Heparin -) 5,000 unit SQ TID [facility] Last Admin: 01/18/18 13:05 Dose: 5,000 unit Ceftriaxone Sodium 2 gm/ (Dextrose) 100 mls @ 200 mls/hr IVPB DAILY [facility]; Protocol Last Admin: 01/18/18 09:14 Dose: 200 mls/hr Metronidazole (Flagyl 500mg Premixed Ivpb -) 500 mg in 100 mls @ 100 mls/hr IVPB Q8H-IV [facility] Last Admin: 01/18/18 09:14 Dose: 100 mls/hr Insulin Aspart (Novolog Vial Sliding Scale -) 1 vial SQ Q6H [facility]; Protocol Last Admin: 01/18/18 11:43 Dose: 6 units Insulin Detemir (Levemir Vial) 12 units SQ BID@0700,2000 [facility] Last Admin: 01/18/18 06:06 Dose: 12 units Methylprednisolone Sodium Succinate (Solu-Medrol -) 40 mg IVPUSH Q8H-IV [facility] Metoprolol Tartrate (Lopressor -) 50 mg PO BID [facility] Last Admin: 01/18/18 09:14 Dose: 50 mg Pantoprazole Sodium (Protonix -) 20 mg PO DAILY [facility] Last Admin: 01/18/18 09:14 Dose: 20 mg Ramipril (Altace -) 5 mg PO DAILY [facility] Last Admin: 01/18/18 09:14 Dose: 5 mg Tamsulosin HCl (Flomax -) 0.4 mg PO DAILY@0830 [facility] Last Admin: 01/18/18 09:13 Dose: 0.4 mg CBC, BMP 01/18/18 05:45 01/18/18 05:45 Physical Exam. Constitutional: Yes: No Distress, mild distress. Cardiovascular: Yes: Regular Rate and Rhythm Respiratory: Yes: Diminished, Scattered rhonchi--- significantly improved Gastrointestinal: Yes: Normal Bowel Sounds, Soft, non tender Edema: No Problem List - Problems (1) FRANCISCO (acute kidney injury) Code(s): N17.9 - ACUTE KIDNEY FAILURE, UNSPECIFIED (2) Colitis Code(s): K52.9 - NONINFECTIVE GASTROENTERITIS AND COLITIS, UNSPECIFIED (3) Sepsis Code(s): A41.9 - SEPSIS, UNSPECIFIED ORGANISM (4) Severe sepsis Code(s): A41.9 - SEPSIS, UNSPECIFIED ORGANISM; R65.20 - SEVERE SEPSIS WITHOUT SEPTIC SHOCK (5) Volume overload Code(s): E87.70 - FLUID OVERLOAD, UNSPECIFIED Assessment/Plan Clinically better Pancreatitis-- better continue antibiotics monitor blood pressure and blood sugar Taper steroids Continue nebulizer treatment physical therapy Discussed with nursing staff also Will follow
--- NOTE | 2018-01-18 14:40 | PN ---
Progress Note (short form) - Note Progress Note: PULMONARY Still some shortness of breath. No cough or wheezing. Vital Signs Period Temp Pulse Resp BP Sys/Quispe Pulse Ox Last 24 Hr 97.3 F-99 F 68-77 20-24 145-166/85-99 94-100 Gen: less tachypneic at rest Heart: RRR Lung: decreased breath sounds at the bases Abd: soft, nontender, obese Ext: no edema CBC, BMP 01/18/18 05:45 01/18/18 05:45 Active Medications Acetaminophen (Tylenol -) 650 mg PO Q4H PRN PRN Reason: FEVER Last Admin: 01/17/18 10:22 Dose: 650 mg Albuterol Sulfate (Ventolin 0.083% Nebulizer Soln -) 1 amp NEB Q4H PRN PRN Reason: SHORT OF BREATH/WHEEZING Last Admin: 01/17/18 22:32 Dose: 1 amp Albuterol/Ipratropium (Duoneb -) 1 amp NEB RQID [facility] Last Admin: 01/18/18 11:29 Dose: 1 amp Aspirin (Asa -) 81 mg PO DAILY [facility] Last Admin: 01/18/18 09:13 Dose: 81 mg Atorvastatin Calcium (Lipitor -) 20 mg PO HS [facility] Last Admin: 01/17/18 21:01 Dose: 20 mg Budesonide/Formoterol Fumarate (Symbicort 160/4.5mcg -) 2 puff IH BID [facility] Last Admin: 01/18/18 09:15 Dose: 2 puff Gabapentin (Neurontin -) 600 mg PO TID [facility] Last Admin: 01/18/18 13:05 Dose: 600 mg Heparin Sodium (Porcine) (Heparin -) 5,000 unit SQ TID [facility] Last Admin: 01/18/18 13:05 Dose: 5,000 unit Ceftriaxone Sodium 2 gm/ (Dextrose) 100 mls @ 200 mls/hr IVPB DAILY [facility]; Protocol Last Admin: 01/18/18 09:14 Dose: 200 mls/hr Metronidazole (Flagyl 500mg Premixed Ivpb -) 500 mg in 100 mls @ 100 mls/hr IVPB Q8H-IV [facility] Last Admin: 01/18/18 09:14 Dose: 100 mls/hr Insulin Aspart (Novolog Vial Sliding Scale -) 1 vial SQ Q6H [facility]; Protocol Last Admin: 01/18/18 11:43 Dose: 6 units Insulin Detemir (Levemir Vial) 12 units SQ BID@0700,1999 [facility] Last Admin: 01/18/18 06:06 Dose: 12 units Methylprednisolone Sodium Succinate (Solu-Medrol -) 40 mg IVPUSH Q8H-IV [facility] Metoprolol Tartrate (Lopressor -) 50 mg PO BID [facility] Last Admin: 01/18/18 09:14 Dose: 50 mg Pantoprazole Sodium (Protonix -) 20 mg PO DAILY [facility] Last Admin: 01/18/18 09:14 Dose: 20 mg Ramipril (Altace -) 5 mg PO DAILY [facility] Last Admin: 01/18/18 09:14 Dose: 5 mg Tamsulosin HCl (Flomax -) 0.4 mg PO DAILY@0830 [facility] Last Admin: 01/18/18 09:13 Dose: 0.4 mg A/P Acute Pancreatitis improving Sepsis COPD Chronic Hypoxic Respiratory Failure CAD AV Block s/p PPPM LV Diastolic Dysfunction Acute Kidney Injury improving - antibiotics per ID - monitor urine output, creatinine - continue medrol at current dose - inhaled bronchodilators standing and PRN - O2 to keep Spo2 >90% - DVT prophylaxis
[2018-01-18] MEDS: ATORVASTATIN CA 20 MG TABLET (FP) PO SCH (22:33)
[2018-01-19] MEDS: methylPREDNISolone NA SUCC 40 MG/1 ML VIAL IVPUSH SCH ×3 (01:18→17:23)
[2018-01-19] MEDS: HEPARIN NA (PORCINE) 5,000 UNITS/ML 1ML VIAL SQ SCH ×3 (05:35→21:12)
[2018-01-19] MEDS: INSULIN SLIDING SCALE (NOVOLOG) 1 VIAL SQ SCH ×5 (05:35→23:12)
[2018-01-19] MEDS: GABAPENTIN 300 MG CAPSULE (FP) PO SCH ×3 (05:36→21:12)
[2018-01-19] MEDS: INSULIN (LEVEMIR) 100 UNITS/ML UNITS SQ SCH ×2 (06:42→21:12)
[2018-01-19] MEDS: ALBUTEROL SO4 2.5/IPRATROPIUM 0.5 INH SOL 3 ML VIAL.NEB. NEB SCH ×2 (07:54→12:13)
[2018-01-19] MEDS: TAMSULOSIN HCL 0.4 MG CAP.ER.24H (FP) PO SCH (08:32)
[2018-01-19] MEDS ORDERED: DEXTROSE 5%-WATER 100 ML IVPB ONE (08:38)
[2018-01-19] MEDS: PANTOPRAZOLE 20 MG TABLET (FP) PO SCH (09:00)
[2018-01-19] MEDS: RAMIPRIL 5 MG CAPSULE (FP) PO SCH (09:00)
[2018-01-19] MEDS: METOPROLOL TARTRATE 50 MG TABLET (FP) PO SCH ×2 (09:00→21:12)
[2018-01-19] MEDS: BUDESONIDE/FORMETEROL FUMARATE 160/4.5 mcg INHALER IH SCH ×2 (09:01→21:13)
[2018-01-19] MEDS: CEFTRIAXONE 2 GM in DEXTROSE 5%-WATER 100 ML IVPB SCH (09:01)
[2018-01-19] MEDS: ASPIRIN 81 MG CHEWABLE TABLETS PO SCH (09:10)
--- NOTE | 2018-01-19 10:51 | PN ---
Progress Note (short form) - Note Progress Note: Chief Complaint: Events noted, notes reviewed, sitting in a chair, dyspnea noted but improved denies any chest discomfort, abdominal discomfort resolved, denies nausea or vomiting History of Present Illness: Seen and examined on telemetry. Events noted, notes reviewed, sitting in a chair , dyspnea noted but improved denies any chest discomfort, abdominal discomfort resolved, denies nausea or vomiting Echocardiography study was technically suboptimal which revealed normal LV size and function, LVEF 60-65%, no significant valvular pathology - Current Medication List Current Medications: Active Medications Current Medications Acetaminophen (Tylenol -) 650 mg PO Q4H PRN PRN Reason: FEVER Last Admin: 01/17/18 10:22 Dose: 650 mg Albuterol Sulfate (Ventolin 0.083% Nebulizer Soln -) 1 amp NEB Q4H PRN PRN Reason: SHORT OF BREATH/WHEEZING Last Admin: 01/17/18 22:32 Dose: 1 amp Albuterol/Ipratropium (Duoneb -) 1 amp NEB RQID [facility] Last Admin: 01/19/18 07:54 Dose: 1 amp Aspirin (Asa -) 81 mg PO DAILY [facility] Last Admin: 01/19/18 09:10 Dose: 81 mg Atorvastatin Calcium (Lipitor -) 20 mg PO HS [facility] Last Admin: 01/18/18 22:33 Dose: 20 mg Budesonide/Formoterol Fumarate (Symbicort 160/4.5mcg -) 2 puff IH BID [facility] Last Admin: 01/19/18 09:01 Dose: 2 puff Gabapentin (Neurontin -) 600 mg PO TID [facility] Last Admin: 01/19/18 05:36 Dose: 600 mg Heparin Sodium (Porcine) (Heparin -) 5,000 unit SQ TID [facility] Last Admin: 01/19/18 05:35 Dose: 5,000 unit Ceftriaxone Sodium 2 gm/ (Dextrose) 100 mls @ 200 mls/hr IVPB DAILY [facility]; Protocol Last Admin: 01/19/18 09:01 Dose: 200 mls/hr Metronidazole (Flagyl 500mg Premixed Ivpb -) 500 mg in 100 mls @ 100 mls/hr IVPB Q8H-IV [facility] Last Admin: 01/19/18 09:50 Dose: 100 mls/hr Insulin Aspart (Novolog Vial Sliding Scale -) 1 vial SQ Q6H [facility]; Protocol Last Admin: 01/19/18 05:35 Dose: 4 units Insulin Detemir (Levemir Vial) 12 units SQ BID@0700,1999 [facility] Last Admin: 01/19/18 06:42 Dose: 12 units Methylprednisolone Sodium Succinate (Solu-Medrol -) 40 mg IVPUSH Q8H-IV [facility] Last Admin: 01/19/18 09:10 Dose: 40 mg Metoprolol Tartrate (Lopressor -) 50 mg PO BID [facility] Last Admin: 01/19/18 09:00 Dose: 50 mg Pantoprazole Sodium (Protonix -) 20 mg PO DAILY [facility] Last Admin: 01/19/18 09:00 Dose: 20 mg Ramipril (Altace -) 5 mg PO DAILY [facility] Last Admin: 01/19/18 09:00 Dose: 5 mg Tamsulosin HCl (Flomax -) 0.4 mg PO DAILY@0830 [facility] Last Admin: 01/19/18 08:32 Dose: 0.4 mg Review Of Systems: HEENT: denies: headache, photophobia, blurring of vision CARD: As noted above RESP: reports: cough and sputum production denies: hemoptysis ABD: denies: nausea, vomiting, diarrhea, melena, hematemesis or abdominal discomfort MUSC: denies: joint pains NEURO: denies: headache, lightheadedness - Objective Vital Signs: Last Vital Signs Temp Pulse Resp BP Pulse Ox 97.9 F 68 18 112/72 95 01/19/18 09:00 01/19/18 09:00 01/19/18 09:00 01/19/18 09:00 01/18/18 22:00 Intake & Output 01/16/18 01/17/18 01/18/18 01/19/18 23:59 23:59 23:59 23:59 Intake Total 1000 490 120 460 Output Total 500 Balance 1000 490 120 -40 Eyes: CHRYSTAL, EOMI Neck: Supple Negative JVD Cardiovascular: S1 S2 Regular Rate and Rhythm Respiratory: Diminished at the Bases with Bilateral Scattered Rhonchi Gastrointestinal: Soft Benign Normal Bowel Sounds No: Tenderness Ext: No Edema Labs: CBC, BMP 01/18/18 05:45 01/18/18 05:45 Hepatic Panel Total Bilirubin 0.3 mg/dL (0.2-1.0) 01/18/18 05:45 Direct Bilirubin 0.3 mg/dL (0.0-0.2) H D 01/12/18 05:30 AST 25 U/L (15-37) D 01/18/18 05:45 ALT 27 U/L (12-78) 01/18/18 05:45 Alkaline Phosphatase 88 U/L (45-117) 01/18/18 05:45 Albumin 2.4 g/dl (3.4-5.0) L 01/18/18 05:45 Assessment/Plan ASSESSMENT: 1. Acute pancreatitis, resolving 2. Sepsis syndrome, resolved 3. 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 AV block post PPM 5. Diastolic LV dysfunction chronic class 0-I NYHA classification LV failure, clinically appears euvolemic/compensated, 6. Hypertension at goal 7. Reactive airway disease/COPD on home O2 therapy with exacerbation 8. Acute kidney injury resolving PLAN: 1. Continue Lopressor 2. Continue Altace and titrate dosage as needed and as tolerated 3. Continue Lipitor 4. Continue ASA 5. Lasix prn 6. Antibiotics as per the primary team 7. Bronchodilators and steroids as per pulmonary team Catalina Mckeon MD
--- NOTE | 2018-01-19 12:59 | PN ---
Progress Note (short form) - Note Progress Note: patient seen and examined. Comfortable. Please better. Still short of breath. Morbidly obese Denies abdominal pain Vital Signs Temp 97.9 F 01/19/18 09:00 Pulse 68 01/19/18 09:00 Resp 18 01/19/18 09:00 BP 112/72 01/19/18 09:00 Pulse Ox 95 01/19/18 10:00 Intake & Output 01/18/18 01/19/18 01/19/18 23:59 11:59 23:59 Intake Total 460 Output Total 500 Balance -40 Intake: IVPB 100 Oral 360 Output: Urine 500 Void 500 Other: Voiding Method Urinal Urinal # Unmeasured Voids Void 2 2 Bowel Movement Yes # Bowel Movements 1 Active Medications Acetaminophen (Tylenol -) 650 mg PO Q4H PRN PRN Reason: FEVER Last Admin: 01/17/18 10:22 Dose: 650 mg Albuterol/Ipratropium (Duoneb -) 1 amp NEB RQID [facility] Last Admin: 01/19/18 12:13 Dose: 1 amp Aspirin (Asa -) 81 mg PO DAILY [facility] Last Admin: 01/19/18 09:10 Dose: 81 mg Atorvastatin Calcium (Lipitor -) 20 mg PO HS [facility] Last Admin: 01/18/18 22:33 Dose: 20 mg Budesonide/Formoterol Fumarate (Symbicort 160/4.5mcg -) 2 puff IH BID [facility] Last Admin: 01/19/18 09:01 Dose: 2 puff Gabapentin (Neurontin -) 600 mg PO TID [facility] Last Admin: 01/19/18 05:36 Dose: 600 mg Heparin Sodium (Porcine) (Heparin -) 5,000 unit SQ TID [facility] Last Admin: 01/19/18 05:35 Dose: 5,000 unit Ceftriaxone Sodium 2 gm/ (Dextrose) 100 mls @ 200 mls/hr IVPB DAILY [facility]; Protocol Last Admin: 01/19/18 09:01 Dose: 200 mls/hr Metronidazole (Flagyl 500mg Premixed Ivpb -) 500 mg in 100 mls @ 100 mls/hr IVPB Q8H-IV [facility] Last Admin: 01/19/18 09:50 Dose: 100 mls/hr Insulin Aspart (Novolog Vial Sliding Scale -) 1 vial SQ Q6H [facility]; Protocol Last Admin: 01/19/18 12:08 Dose: 6 units Insulin Detemir (Levemir Vial) 12 units SQ BID@0700,2000 [facility] Last Admin: 01/19/18 06:42 Dose: 12 units Methylprednisolone Sodium Succinate (Solu-Medrol -) 40 mg IVPUSH Q8H-IV [facility] Last Admin: 01/19/18 09:10 Dose: 40 mg Metoprolol Tartrate (Lopressor -) 50 mg PO BID [facility] Last Admin: 01/19/18 09:00 Dose: 50 mg Pantoprazole Sodium (Protonix -) 20 mg PO DAILY [facility] Last Admin: 01/19/18 09:00 Dose: 20 mg Ramipril (Altace -) 5 mg PO DAILY [facility] Last Admin: 01/19/18 09:00 Dose: 5 mg Tamsulosin HCl (Flomax -) 0.4 mg PO DAILY@0830 [facility] Last Admin: 01/19/18 08:32 Dose: 0.4 mg CBC, BMP 01/18/18 05:45 01/18/18 05:45 Physical Exam. Constitutional: Yes: No Distress, mild distress. Cardiovascular: Yes: Regular Rate and Rhythm Respiratory: Yes: Diminished, Bilateral rhonchi- Gastrointestinal: Yes: Normal Bowel Sounds, Soft, non tender Edema: No Problem List - Problems (1) FRANCISCO (acute kidney injury) Code(s): N17.9 - ACUTE KIDNEY FAILURE, UNSPECIFIED (2) Colitis Code(s): K52.9 - NONINFECTIVE GASTROENTERITIS AND COLITIS, UNSPECIFIED (3) Sepsis Code(s): A41.9 - SEPSIS, UNSPECIFIED ORGANISM (4) Severe sepsis Code(s): A41.9 - SEPSIS, UNSPECIFIED ORGANISM; R65.20 - SEVERE SEPSIS WITHOUT SEPTIC SHOCK (5) Volume overload Code(s): E87.70 - FLUID OVERLOAD, UNSPECIFIED Assessment/Plan Clinically better Pancreatitis-- better continue antibiotics monitor blood pressure and blood sugar Taper steroids Continue nebulizer treatment physical therapy Discussed with nursing staff also GI to follow Follow-up labs Will follow
--- NOTE | 2018-01-19 13:06 | PN ---
Progress Note (short form) - Note Progress Note: PULMONARY Still some shortness of breath but slightly better. No cough or wheezing. Vital Signs Period Temp Pulse Resp BP Sys/Quispe Pulse Ox Last 24 Hr 97 F-98.6 F 67-78 18-22 112-167/54-98 95-95 Gen: less tachypneic at rest Heart: RRR Lung: decreased breath sounds at the bases Abd: soft, nontender, obese Ext: no edema CBC, BMP 01/18/18 05:45 01/18/18 05:45 Active Medications Acetaminophen (Tylenol -) 650 mg PO Q4H PRN PRN Reason: FEVER Last Admin: 01/17/18 10:22 Dose: 650 mg Albuterol/Ipratropium (Duoneb -) 1 amp NEB RQID [facility] Last Admin: 01/19/18 12:13 Dose: 1 amp Aspirin (Asa -) 81 mg PO DAILY [facility] Last Admin: 01/19/18 09:10 Dose: 81 mg Atorvastatin Calcium (Lipitor -) 20 mg PO HS [facility] Last Admin: 01/18/18 22:33 Dose: 20 mg Budesonide/Formoterol Fumarate (Symbicort 160/4.5mcg -) 2 puff IH BID [facility] Last Admin: 01/19/18 09:01 Dose: 2 puff Gabapentin (Neurontin -) 600 mg PO TID [facility] Last Admin: 01/19/18 05:36 Dose: 600 mg Heparin Sodium (Porcine) (Heparin -) 5,000 unit SQ TID [facility] Last Admin: 01/19/18 05:35 Dose: 5,000 unit Ceftriaxone Sodium 2 gm/ (Dextrose) 100 mls @ 200 mls/hr IVPB DAILY [facility]; Protocol Last Admin: 01/19/18 09:01 Dose: 200 mls/hr Metronidazole (Flagyl 500mg Premixed Ivpb -) 500 mg in 100 mls @ 100 mls/hr IVPB Q8H-IV [facility] Last Admin: 01/19/18 09:50 Dose: 100 mls/hr Insulin Aspart (Novolog Vial Sliding Scale -) 1 vial SQ Q6H [facility]; Protocol Last Admin: 01/19/18 12:08 Dose: 6 units Insulin Detemir (Levemir Vial) 12 units SQ BID@0700,2000 [facility] Last Admin: 01/19/18 06:42 Dose: 12 units Methylprednisolone Sodium Succinate (Solu-Medrol -) 40 mg IVPUSH Q8H-IV [facility] Last Admin: 01/19/18 09:10 Dose: 40 mg Metoprolol Tartrate (Lopressor -) 50 mg PO BID [facility] Last Admin: 01/19/18 09:00 Dose: 50 mg Pantoprazole Sodium (Protonix -) 20 mg PO DAILY [facility] Last Admin: 01/19/18 09:00 Dose: 20 mg Ramipril (Altace -) 5 mg PO DAILY [facility] Last Admin: 01/19/18 09:00 Dose: 5 mg Tamsulosin HCl (Flomax -) 0.4 mg PO DAILY@0830 [facility] Last Admin: 01/19/18 08:32 Dose: 0.4 mg A/P Acute Pancreatitis improving Sepsis COPD Chronic Hypoxic Respiratory Failure CAD AV Block s/p PPPM LV Diastolic Dysfunction Acute Kidney Injury improving - antibiotics per ID - monitor urine output, creatinine - continue medrol at current dose - inhaled bronchodilators standing and PRN - O2 to keep Spo2 >90% - DVT prophylaxis
[2018-01-19] MEDS ORDERED: INSULIN (NOVOLOG) ASPART 100 UNITS/ML 10ML VIAL ONE (20:21)
[2018-01-19] MEDS ORDERED: PT OWN MED DRAWER 7, Y5N ONE ×2 (20:23→20:29)
[2018-01-19] MEDS: ATORVASTATIN CA 20 MG TABLET (FP) PO SCH (21:12)
[2018-01-20] MEDS: methylPREDNISolone NA SUCC 40 MG/1 ML VIAL IVPUSH SCH ×3 (01:19→18:31)
[2018-01-20] MEDS: GABAPENTIN 300 MG CAPSULE (FP) PO SCH ×3 (06:33→21:08)
[2018-01-20] MEDS: INSULIN (LEVEMIR) 100 UNITS/ML UNITS SQ SCH ×2 (06:33→21:08)
[2018-01-20] MEDS: INSULIN SLIDING SCALE (NOVOLOG) 1 VIAL SQ SCH ×4 (06:33→21:10)
[2018-01-20] MEDS: HEPARIN NA (PORCINE) 5,000 UNITS/ML 1ML VIAL SQ SCH ×3 (06:33→21:08)
[2018-01-20] MEDS ORDERED: DEXTROSE 5%-WATER 100 ML IVPB ONE (09:28)
[2018-01-20] MEDS: ASPIRIN 81 MG CHEWABLE TABLETS PO SCH (09:41)
[2018-01-20] MEDS: PANTOPRAZOLE 20 MG TABLET (FP) PO SCH (09:42)
[2018-01-20] MEDS: BUDESONIDE/FORMETEROL FUMARATE 160/4.5 mcg INHALER IH SCH ×2 (09:42→21:09)
[2018-01-20] MEDS: RAMIPRIL 5 MG CAPSULE (FP) PO SCH (09:42)
[2018-01-20] MEDS: TAMSULOSIN HCL 0.4 MG CAP.ER.24H (FP) PO SCH (09:42)
[2018-01-20] MEDS: METOPROLOL TARTRATE 50 MG TABLET (FP) PO SCH ×2 (09:42→21:08)
[2018-01-20] MEDS ORDERED: ALBUTEROL SO4 0.083% IH SOL 2.5 MG/3 ML VIAL.NEB. NEB ONE (10:03)
[2018-01-20] MEDS ORDERED: ALBUTEROL SO4 0.5 % INH SOLN 2.5 MG/0.5 ML VIAL.NEB. NEB ONE (10:03)
[2018-01-20] MEDS: ALBUTEROL SO4 0.083% IH SOL 2.5 MG/3 ML VIAL.NEB. NEB PRN (10:15)
[2018-01-20] MEDS: CEFTRIAXONE 2 GM in DEXTROSE 5%-WATER 100 ML IVPB SCH (10:30)
--- NOTE | 2018-01-20 11:15 | PN ---
Progress Note, Physician History of Present Illness: Epigastric abdominal pain without nausea or emesis improving, tolerating soft diet, reports cough and wheezes on 40% VM. - Current Medication List Current Medications: Active Medications Acetaminophen (Tylenol -) 650 mg PO Q4H PRN PRN Reason: FEVER Last Admin: 01/17/18 10:22 Dose: 650 mg Albuterol Sulfate (Ventolin 0.083% Nebulizer Soln -) 1 amp NEB Q4H PRN PRN Reason: SHORT OF BREATH/WHEEZING Last Admin: 01/20/18 10:15 Dose: 1 amp Aspirin (Asa -) 81 mg PO DAILY [facility] Last Admin: 01/20/18 09:41 Dose: 81 mg Atorvastatin Calcium (Lipitor -) 20 mg PO HS [facility] Last Admin: 01/19/18 21:12 Dose: 20 mg Budesonide/Formoterol Fumarate (Symbicort 160/4.5mcg -) 2 puff IH BID [facility] Last Admin: 01/20/18 09:42 Dose: 2 puff Gabapentin (Neurontin -) 600 mg PO TID [facility] Last Admin: 01/20/18 06:33 Dose: 600 mg Heparin Sodium (Porcine) (Heparin -) 5,000 unit SQ TID [facility] Last Admin: 01/20/18 06:33 Dose: 5,000 unit Ceftriaxone Sodium 2 gm/ (Dextrose) 100 mls @ 200 mls/hr IVPB DAILY [facility]; Protocol Last Admin: 01/20/18 10:30 Dose: 200 mls/hr Metronidazole (Flagyl 500mg Premixed Ivpb -) 500 mg in 100 mls @ 100 mls/hr IVPB Q8H-IV [facility] Last Admin: 01/20/18 09:42 Dose: 100 mls/hr Insulin Aspart (Novolog Vial Sliding Scale -) 1 vial SQ Q6H [facility]; Protocol Last Admin: 01/20/18 06:33 Dose: 4 units Insulin Detemir (Levemir Vial) 12 units SQ BID@0700,2000 [facility] Last Admin: 01/20/18 06:33 Dose: 12 units Methylprednisolone Sodium Succinate (Solu-Medrol -) 40 mg IVPUSH Q8H-IV [facility] Last Admin: 01/20/18 09:41 Dose: 40 mg Metoprolol Tartrate (Lopressor -) 50 mg PO BID [facility] Last Admin: 01/20/18 09:42 Dose: 50 mg Pantoprazole Sodium (Protonix -) 20 mg PO DAILY [facility] Last Admin: 01/20/18 09:42 Dose: 20 mg Ramipril (Altace -) 5 mg PO DAILY [facility] Last Admin: 01/20/18 09:42 Dose: 5 mg Tamsulosin HCl (Flomax -) 0.4 mg PO DAILY@0830 [facility] Last Admin: 01/20/18 09:42 Dose: 0.4 mg - Objective Vital Signs: Vital Signs Temperature 97.6 F 01/20/18 06:00 Pulse Rate 70 01/20/18 09:22 Respiratory Rate 26 H 01/20/18 09:22 Blood Pressure 154/90 01/20/18 09:22 O2 Sat by Pulse Oximetry (%) 98 01/20/18 07:32 Constitutional: Yes: No Distress, Calm Neck: Yes: Supple Cardiovascular: Yes: Regular Rate and Rhythm Respiratory: Yes: Regular, Cough, Diminished, On Venti-Mask, Wheezes Gastrointestinal: Yes: Normal Bowel Sounds, Soft, Abdomen, Obese Edema: No Labs: CBC, BMP 01/18/18 05:45 01/18/18 05:45 INR, PTT INR 1.38 (0.82-1.09) H 01/10/18 15:25 Problem List - Problems (1) Pacemaker Code(s): Z95.0 - PRESENCE OF CARDIAC PACEMAKER (2) Pancreatitis Code(s): K85.90 - ACUTE PANCREATITIS WITHOUT NECROSIS OR INFECTION, UNSP Qualifiers: Chronicity: acute Pancreatitis type: unspecified pancreatitis type Acute pancreatitis complication: unspecified Qualified Code(s): K85.90 - Acute pancreatitis without necrosis or infection, unspecified (3) Diastolic dysfunction Code(s): I51.9 - HEART DISEASE, UNSPECIFIED (4) Demand ischemia Code(s): I24.8 - OTHER FORMS OF ACUTE ISCHEMIC HEART DISEASE (5) COPD (chronic obstructive pulmonary disease) Code(s): J44.9 - CHRONIC OBSTRUCTIVE PULMONARY DISEASE, UNSPECIFIED Qualifiers: COPD type: unspecified COPD Qualified Code(s): J44.9 - Chronic obstructive pulmonary disease, unspecified Assessment/Plan Echocardiography study was technically suboptimal which revealed normal LV size and function, LVEF 60-65%, no significant valvular pathology 1. Acute pancreatitis, resolving 2. Sepsis syndrome, resolved 3. 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 AV block post PPM 5. Probable diastolic LV dysfunction chronic class 0-I NYHA classification LV failure, clinically appears euvolemic/compensated 6. Chronic Hypoxic Respiratory Failure/COPD on home O2 therapy 7. Acute kidney injury resolving PLAN: 1. Continue Lopressor 50 bid 2. Continue Altace 5 qd 3. Continue Lipitor 20 qhs 4. Continue ASA 81 qd 5. Lasix prn 6. Antibiotics as per ID 7. Bronchodilators, O2 to keep Spo2 >90%, IV steroids taper 8. DVT and GI prophylaxis
--- NOTE | 2018-01-20 11:30 | PN ---
Progress Note (short form) - Note Progress Note: Shortness of breath slightly better, but still not at baseline. Some dry cough. Intake & Output 01/17/18 01/18/18 01/19/18 01/20/18 23:59 23:59 23:59 23:59 Intake Total 490 120 710 120 Output Total 1220 550 Balance 490 120 -510 -430 Last Vital Signs Temp Pulse Resp BP Pulse Ox 97.6 F 70 26 H 154/90 98 01/20/18 06:00 01/20/18 09:22 01/20/18 09:22 01/20/18 09:22 01/20/18 07:32 Active Medications Acetaminophen (Tylenol -) 650 mg PO Q4H PRN PRN Reason: FEVER Last Admin: 01/17/18 10:22 Dose: 650 mg Albuterol Sulfate (Ventolin 0.083% Nebulizer Soln -) 1 amp NEB Q4H PRN PRN Reason: SHORT OF BREATH/WHEEZING Last Admin: 01/20/18 10:15 Dose: 1 amp Aspirin (Asa -) 81 mg PO DAILY [facility] Last Admin: 01/20/18 09:41 Dose: 81 mg Atorvastatin Calcium (Lipitor -) 20 mg PO HS [facility] Last Admin: 01/19/18 21:12 Dose: 20 mg Budesonide/Formoterol Fumarate (Symbicort 160/4.5mcg -) 2 puff IH BID [facility] Last Admin: 01/20/18 09:42 Dose: 2 puff Gabapentin (Neurontin -) 600 mg PO TID [facility] Last Admin: 01/20/18 06:33 Dose: 600 mg Heparin Sodium (Porcine) (Heparin -) 5,000 unit SQ TID [facility] Last Admin: 01/20/18 06:33 Dose: 5,000 unit Ceftriaxone Sodium 2 gm/ (Dextrose) 100 mls @ 200 mls/hr IVPB DAILY [facility]; Protocol Last Admin: 01/20/18 10:30 Dose: 200 mls/hr Metronidazole (Flagyl 500mg Premixed Ivpb -) 500 mg in 100 mls @ 100 mls/hr IVPB Q8H-IV [facility] Last Admin: 01/20/18 09:42 Dose: 100 mls/hr Insulin Aspart (Novolog Vial Sliding Scale -) 1 vial SQ Q6H [facility]; Protocol Last Admin: 01/20/18 06:33 Dose: 4 units Insulin Detemir (Levemir Vial) 12 units SQ BID@0700,1999 [facility] Last Admin: 01/20/18 06:33 Dose: 12 units Methylprednisolone Sodium Succinate (Solu-Medrol -) 40 mg IVPUSH Q8H-IV [facility] Last Admin: 01/20/18 09:41 Dose: 40 mg Metoprolol Tartrate (Lopressor -) 50 mg PO BID [facility] Last Admin: 01/20/18 09:42 Dose: 50 mg Pantoprazole Sodium (Protonix -) 20 mg PO DAILY [facility] Last Admin: 01/20/18 09:42 Dose: 20 mg Ramipril (Altace -) 5 mg PO DAILY [facility] Last Admin: 01/20/18 09:42 Dose: 5 mg Tamsulosin HCl (Flomax -) 0.4 mg PO DAILY@30 [facility] Last Admin: 01/20/18 09:42 Dose: 0.4 mg Gen: NAD, less tachypneic at rest Heart: RRR Lung: decreased breath sounds at the bases Abd: soft, nontender, obese Ext: no edema Laboratory Results - last 24 hr 01/19/18 01/19/18 01/19/18 12:00 17:11 20:08 POC Glucometer 275 258 309 01/20/18 05:24 POC Glucometer 222 A/P Acute Pancreatitis improving Sepsis COPD Chronic Hypoxic Respiratory Failure CAD AV Block s/p PPPM LV Diastolic Dysfunction Acute Kidney Injury improving - ABX per ID - monitor urine output, creatinine - Medrol at current dose - Inhaled bronchodilators standing and PRN - O2 to keep Spo2 >90% - DVT prophylaxis Dr Lujan
--- NOTE | 2018-01-20 12:53 | PN ---
Progress Note (short form) - Note Progress Note: patient seen and examined today. still dyspneic No distress All the follow-ups noted Afebrile Vital Signs Temp 97.6 F 01/20/18 06:00 Pulse 70 01/20/18 09:22 Resp 26 H 01/20/18 09:22 BP 154/90 01/20/18 09:22 Pulse Ox 98 01/20/18 07:32 Intake & Output 01/19/18 01/20/18 01/20/18 23:59 11:59 23:59 Intake Total 250 120 Output Total 720 550 Balance -470 -430 Intake: IV 10 #22 LH 01/19 10 Oral 240 120 Output: Urine 720 550 Void 720 550 Other: Voiding Method Urinal Urinal # Unmeasured Voids Void 1 Bowel Movement No # Bowel Movements 2 Active Medications Acetaminophen (Tylenol -) 650 mg PO Q4H PRN PRN Reason: FEVER Last Admin: 01/17/18 10:22 Dose: 650 mg Albuterol Sulfate (Ventolin 0.083% Nebulizer Soln -) 1 amp NEB Q4H PRN PRN Reason: SHORT OF BREATH/WHEEZING Last Admin: 01/20/18 10:15 Dose: 1 amp Aspirin (Asa -) 81 mg PO DAILY [facility] Last Admin: 01/20/18 09:41 Dose: 81 mg Atorvastatin Calcium (Lipitor -) 20 mg PO HS [facility] Last Admin: 01/19/18 21:12 Dose: 20 mg Budesonide/Formoterol Fumarate (Symbicort 160/4.5mcg -) 2 puff IH BID [facility] Last Admin: 01/20/18 09:42 Dose: 2 puff Gabapentin (Neurontin -) 600 mg PO TID [facility] Last Admin: 01/20/18 06:33 Dose: 600 mg Heparin Sodium (Porcine) (Heparin -) 5,000 unit SQ TID [facility] Last Admin: 01/20/18 06:33 Dose: 5,000 unit Ceftriaxone Sodium 2 gm/ (Dextrose) 100 mls @ 200 mls/hr IVPB DAILY [facility]; Protocol Last Admin: 01/20/18 10:30 Dose: 200 mls/hr Metronidazole (Flagyl 500mg Premixed Ivpb -) 500 mg in 100 mls @ 100 mls/hr IVPB Q8H-IV [facility] Last Admin: 01/20/18 09:42 Dose: 100 mls/hr Insulin Aspart (Novolog Vial Sliding Scale -) 1 vial SQ Q6H [facility]; Protocol Last Admin: 01/20/18 12:35 Dose: 4 units Insulin Detemir (Levemir Vial) 12 units SQ BID@0700,2000 [facility] Last Admin: 01/20/18 06:33 Dose: 12 units Methylprednisolone Sodium Succinate (Solu-Medrol -) 40 mg IVPUSH Q8H-IV [facility] Last Admin: 01/20/18 09:41 Dose: 40 mg Metoprolol Tartrate (Lopressor -) 50 mg PO BID [facility] Last Admin: 01/20/18 09:42 Dose: 50 mg Pantoprazole Sodium (Protonix -) 20 mg PO DAILY [facility] Last Admin: 01/20/18 09:42 Dose: 20 mg Ramipril (Altace -) 5 mg PO DAILY [facility] Last Admin: 01/20/18 09:42 Dose: 5 mg Tamsulosin HCl (Flomax -) 0.4 mg PO DAILY@0830 [facility] Last Admin: 01/20/18 09:42 Dose: 0.4 mg CBC, BMP 01/18/18 05:45 01/18/18 05:45 Physical Exam. Constitutional: Yes: No Distress, mild distress. Cardiovascular: Yes: Regular Rate and Rhythm Respiratory: Yes: Diminished, Bilateral rhonchi--- Gastrointestinal: Yes: Normal Bowel Sounds, Soft, non tender Edema: No Problem List - Problems (1) FRANCISCO (acute kidney injury) Code(s): N17.9 - ACUTE KIDNEY FAILURE, UNSPECIFIED (2) Colitis Code(s): K52.9 - NONINFECTIVE GASTROENTERITIS AND COLITIS, UNSPECIFIED (3) Sepsis Code(s): A41.9 - SEPSIS, UNSPECIFIED ORGANISM (4) Severe sepsis Code(s): A41.9 - SEPSIS, UNSPECIFIED ORGANISM; R65.20 - SEVERE SEPSIS WITHOUT SEPTIC SHOCK (5) Volume overload Code(s): E87.70 - FLUID OVERLOAD, UNSPECIFIED Assessment/Plan Clinically stable slowly improving Continue present care Taper steroids--- slowly Patient is morbidly obese Physical therapy Will follow
[2018-01-20 13:12] LABS: ARTERIAL BLD GAS O2 SATURATION 96.6 % (90-98.9); ARTERIAL BLOOD GAS PO2 88.9 mmHg (68-100); ARTERIAL BLOOD GAS pH 7.43 (7.35-7.45)
[2018-01-20 13:15] LABS: ALLENS TEST POSITIVE
[2018-01-20] MEDS ORDERED: PT OWN MED DRAWER 7, Y5N ONE (21:01)
[2018-01-20] MEDS: ATORVASTATIN CA 20 MG TABLET (FP) PO SCH (21:08)
[2018-01-21] MEDS: INSULIN SLIDING SCALE (NOVOLOG) 1 VIAL SQ SCH ×6 (00:14→22:16)
[2018-01-21] MEDS ORDERED: PT OWN MED DRAWER 7, Y5N ONE ×2 (01:30→21:19)
[2018-01-21] MEDS: methylPREDNISolone NA SUCC 40 MG/1 ML VIAL IVPUSH SCH ×3 (01:32→17:21)
[2018-01-21] MEDS: GABAPENTIN 300 MG CAPSULE (FP) PO SCH ×4 (05:52→21:28)
[2018-01-21] MEDS: HEPARIN NA (PORCINE) 5,000 UNITS/ML 1ML VIAL SQ SCH ×3 (05:53→21:27)
[2018-01-21] MEDS: INSULIN (LEVEMIR) 100 UNITS/ML UNITS SQ SCH ×2 (06:21→21:28)
[2018-01-21 06:46] LABS: BASO % 0.1 % (0-2.0); HEMATOCRIT 34.8 % (35.4-49); HEMOGLOBIN 11.5 GM/dL (11.7-16.9); LYMPH % 4.8 % (8-40); MCH 30.6 pg (25.7-33.7); MEAN CELL VOLUME 92.9 fl (80-96); MEAN PLT VOLUME 10.3 fl (7.5-11.1); MONO % 4.6 % (3.8-10.2); NEUT % 90.5 % (42.8-82.8); PLATELET COUNT 265 K/MM3 (134-434); RBC 3.74 M/mm3 (4.00-5.60); RDW 14.9 % (11.9-15.9); WHITE BLOOD COUNT 12.5 K/mm3 (4.0-10.0)
[2018-01-21 07:08] LABS: ALBUMIN 2.4 g/dl (3.4-5.0); ANION GAP 4 (8-16); BLOOD UREA NITROGEN 24 mg/dL (7-18); CALCIUM 8.3 mg/dL (8.5-10.1); CHLORIDE 102 mmol/L (98-107); CO2 35 mmol/L (21-32); GLUCOSE,RANDOM 247 mg/dL (74-106); POTASSIUM 4.9 mmol/L (3.5-5.1); SGPT/ALT 20 U/L (12-78); SODIUM 141 mmol/L (136-145)
[2018-01-21 07:11] LABS: ALK PHOS 116 U/L (45-117); BILIRUBIN,TOTAL 0.3 mg/dL (0.2-1.0); CREATININE 1.1 mg/dL (0.7-1.3); SGOT/AST 13 U/L (15-37); TOT PROT 5.7 g/dl (6.4-8.2)
[2018-01-21 07:38] LABS: LIPASE 319 U/L (73-393)
--- NOTE | 2018-01-21 08:24 | PN ---
Progress Note (short form) - Note Progress Note: Chief Complaint: Events noted, notes reviewed, resting in bed, dyspnea noted but improved, denies any chest discomfort, abdominal discomfort resolved, denies nausea or vomiting History of Present Illness: Seen and examined on telemetry. Events noted, notes reviewed, resting in bed, dyspnea noted but improved, denies any chest discomfort, abdominal discomfort resolved, denies nausea or vomiting Hypertension noted Echocardiography study was technically suboptimal which revealed normal LV size and function, LVEF 60-65%, no significant valvular pathology - Current Medication List Current Medications: Active Medications Current Medications Acetaminophen (Tylenol -) 650 mg PO Q4H PRN PRN Reason: FEVER Last Admin: 01/17/18 10:22 Dose: 650 mg Albuterol Sulfate (Ventolin 0.083% Nebulizer Soln -) 1 amp NEB Q4H PRN PRN Reason: SHORT OF BREATH/WHEEZING Last Admin: 01/20/18 10:15 Dose: 1 amp Aspirin (Asa -) 81 mg PO DAILY [facility] Last Admin: 01/20/18 09:41 Dose: 81 mg Atorvastatin Calcium (Lipitor -) 20 mg PO HS [facility] Last Admin: 01/20/18 21:08 Dose: 20 mg Budesonide/Formoterol Fumarate (Symbicort 160/4.5mcg -) 2 puff IH BID [facility] Last Admin: 01/20/18 21:09 Dose: 2 puff Gabapentin (Neurontin -) 600 mg PO TID [facility] Last Admin: 01/21/18 06:05 Dose: Not Given Heparin Sodium (Porcine) (Heparin -) 5,000 unit SQ TID [facility] Last Admin: 01/21/18 05:53 Dose: 5,000 unit Ceftriaxone Sodium 2 gm/ (Dextrose) 100 mls @ 200 mls/hr IVPB DAILY [facility]; Protocol Last Admin: 01/20/18 10:30 Dose: 200 mls/hr Metronidazole (Flagyl 500mg Premixed Ivpb -) 500 mg in 100 mls @ 100 mls/hr IVPB Q8H-IV [facility] Last Admin: 01/21/18 01:32 Dose: 100 mls/hr Insulin Aspart (Novolog Vial Sliding Scale -) 1 vial SQ Q6H [facility]; Protocol Last Admin: 01/21/18 05:55 Dose: Not Given Insulin Detemir (Levemir Vial) 15 units SQ BID@0700,2200 [facility] Last Admin: 01/21/18 06:21 Dose: 15 units Methylprednisolone Sodium Succinate (Solu-Medrol -) 40 mg IVPUSH Q8H-IV [facility] Last Admin: 01/21/18 01:32 Dose: 40 mg Metoprolol Tartrate (Lopressor -) 50 mg PO BID [facility] Last Admin: 01/20/18 21:08 Dose: 50 mg Pantoprazole Sodium (Protonix -) 20 mg PO DAILY [facility] Last Admin: 01/20/18 09:42 Dose: 20 mg Ramipril (Altace -) 5 mg PO DAILY [facility] Last Admin: 01/20/18 09:42 Dose: 5 mg Tamsulosin HCl (Flomax -) 0.4 mg PO DAILY@0830 [facility] Last Admin: 01/20/18 09:42 Dose: 0.4 mg Review Of Systems: HEENT: denies: headache, photophobia, blurring of vision CARD: As noted above RESP: reports: cough and sputum production denies: hemoptysis ABD: denies: nausea, vomiting, diarrhea, melena, hematemesis or abdominal discomfort MUSC: denies: joint pains NEURO: denies: headache, lightheadedness - Objective Vital Signs: Last Vital Signs Temp Pulse Resp BP Pulse Ox 97.9 F 69 24 188/98 96 01/21/18 05:00 01/21/18 05:00 01/21/18 05:00 01/21/18 01:26 01/21/18 03:04 Intake & Output 01/18/18 01/19/18 01/20/18 01/21/18 23:59 23:59 23:59 23:59 Intake Total 120 710 360 Output Total 1220 1750 500 Balance 120 -510 -1390 -500 Eyes: CHRYSTAL, EOMI Neck: Supple Negative JVD Cardiovascular: S1 S2 Regular Rate and Rhythm Respiratory: Diminished at the Bases with Bilateral Scattered Rhonchi Gastrointestinal: Soft Benign Normal Bowel Sounds No: Tenderness Ext: No Edema Labs: CBC, BMP 01/21/18 06:00 01/21/18 06:00 Hepatic Panel Total Bilirubin 0.3 mg/dL (0.2-1.0) 01/21/18 06:00 Direct Bilirubin 0.3 mg/dL (0.0-0.2) H D 07/29/18 05:30 AST 13 U/L (15-37) L D 01/21/18 06:00 ALT 20 U/L (12-78) D 01/21/18 06:00 Alkaline Phosphatase 116 U/L (45-117) D 01/21/18 06:00 Albumin 2.4 g/dl (3.4-5.0) L 01/21/18 06:00 Assessment/Plan ASSESSMENT: 1. Acute pancreatitis, resolved 2. Sepsis syndrome, resolved 3. 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 AV block post PPM 5. Diastolic LV dysfunction chronic class 0-I NYHA classification LV failure, clinically appears euvolemic/compensated, 6. Hypertension not at goal 7. Reactive airway disease/COPD on home O2 therapy with exacerbation 8. Acute kidney injury resolving PLAN: 1. Continue Lopressor 2. Continue Altace and titrate dosage as needed and as tolerated 3. Continue Lipitor 4. Continue ASA 5. Lasix prn 6. Antibiotics as per the primary team 7. Bronchodilators and steroids as per pulmonary team 8. Can be transferred to floor care from the cardiovascular point of view Catalina Mckeon MD
[2018-01-21] MEDS: TAMSULOSIN HCL 0.4 MG CAP.ER.24H (FP) PO SCH (11:05)
[2018-01-21] MEDS: ASPIRIN 81 MG CHEWABLE TABLETS PO SCH (11:05)
[2018-01-21] MEDS: METOPROLOL TARTRATE 50 MG TABLET (FP) PO SCH ×2 (11:05→21:28)
[2018-01-21] MEDS: PANTOPRAZOLE 20 MG TABLET (FP) PO SCH (11:05)
[2018-01-21] MEDS: RAMIPRIL 5 MG CAPSULE (FP) PO SCH (11:05)
[2018-01-21] MEDS: BUDESONIDE/FORMETEROL FUMARATE 160/4.5 mcg INHALER IH SCH ×2 (11:06→21:29)
--- NOTE | 2018-01-21 11:16 | PN ---
Progress Note, Physician Chief Complaint: he pain in the abdomen- RUQ no labored breathing - Current Medication List Current Medications: Active Medications Acetaminophen (Tylenol -) 650 mg PO Q4H PRN PRN Reason: FEVER Last Admin: 01/17/18 10:22 Dose: 650 mg Albuterol Sulfate (Ventolin 0.083% Nebulizer Soln -) 1 amp NEB Q4H PRN PRN Reason: SHORT OF BREATH/WHEEZING Last Admin: 01/20/18 10:15 Dose: 1 amp Aspirin (Asa -) 81 mg PO DAILY [facility] Last Admin: 01/21/18 11:05 Dose: 81 mg Atorvastatin Calcium (Lipitor -) 20 mg PO HS [facility] Last Admin: 01/20/18 21:08 Dose: 20 mg Budesonide/Formoterol Fumarate (Symbicort 160/4.5mcg -) 2 puff IH BID [facility] Last Admin: 01/21/18 11:06 Dose: 2 puff Gabapentin (Neurontin -) 600 mg PO TID [facility] Last Admin: 01/21/18 06:05 Dose: Not Given Heparin Sodium (Porcine) (Heparin -) 5,000 unit SQ TID [facility] Last Admin: 01/21/18 05:53 Dose: 5,000 unit Insulin Aspart (Novolog Vial Sliding Scale -) 1 vial SQ Q6H [facility]; Protocol Last Admin: 01/21/18 05:55 Dose: Not Given Insulin Detemir (Levemir Vial) 15 units SQ BID@0700,2200 [facility] Last Admin: 01/21/18 06:21 Dose: 15 units Methylprednisolone Sodium Succinate (Solu-Medrol -) 40 mg IVPUSH Q8H-IV [facility] Last Admin: 01/21/18 11:06 Dose: 40 mg Metoprolol Tartrate (Lopressor -) 50 mg PO BID [facility] Last Admin: 01/21/18 11:05 Dose: 50 mg Pantoprazole Sodium (Protonix -) 20 mg PO DAILY [facility] Last Admin: 01/21/18 11:05 Dose: 20 mg Ramipril (Altace -) 10 mg PO DAILY [facility] Last Admin: 01/21/18 11:05 Dose: 10 mg Tamsulosin HCl (Flomax -) 0.4 mg PO DAILY@0830 [facility] Last Admin: 01/21/18 11:05 Dose: 0.4 mg - Objective Vital Signs: Vital Signs Temperature 97.9 F 01/21/18 05:00 Pulse Rate 69 01/21/18 05:00 Respiratory Rate 24 01/21/18 05:00 Blood Pressure 188/98 01/21/18 01:26 O2 Sat by Pulse Oximetry (%) 96 01/21/18 03:04 Constitutional: Yes: No Distress Cardiovascular: Yes: Regular Rate and Rhythm Respiratory: Yes: Diminished, Rales, Rhonchi, Wheezes Gastrointestinal: Yes: Normal Bowel Sounds, Soft, Abdomen, Obese, Tenderness ( ruq) Edema: Yes Labs: CBC, BMP 01/21/18 06:00 01/21/18 06:00 INR, PTT INR 1.38 (0.82-1.09) H 01/10/18 15:25 Problem List - Problems (1) FRANCISCO (acute kidney injury) Code(s): N17.9 - ACUTE KIDNEY FAILURE, UNSPECIFIED (2) Colitis Code(s): K52.9 - NONINFECTIVE GASTROENTERITIS AND COLITIS, UNSPECIFIED (3) Sepsis Code(s): A41.9 - SEPSIS, UNSPECIFIED ORGANISM (4) Severe sepsis Code(s): A41.9 - SEPSIS, UNSPECIFIED ORGANISM; R65.20 - SEVERE SEPSIS WITHOUT SEPTIC SHOCK (5) Volume overload Code(s): E87.70 - FLUID OVERLOAD, UNSPECIFIED Assessment/Plan PLAN on iv solumedrol, nebs increase Insulin HIDA scan done continue with meds OOB pt tolerating diet
[2018-01-21 12:34] LABS: ANISOCYTOSIS 1+; MACROCYTOSIS 1+
--- NOTE | 2018-01-21 13:04 | PN ---
Progress Note (short form) - Note Progress Note: Shortness of breath slightly better, but still not at baseline. Currently OOB to chair. Reports some RUQ discomfort. Some dry cough. Intake & Output 01/18/18 01/19/18 01/20/18 01/21/18 23:59 23:59 23:59 23:59 Intake Total 120 710 360 Output Total 1220 1750 700 Balance 120 -510 -1390 -700 Last Vital Signs Temp Pulse Resp BP Pulse Ox 98 F 70 20 180/90 96 01/21/18 09:00 01/21/18 09:00 01/21/18 09:00 01/21/18 09:00 01/21/18 09:00 Active Medications Acetaminophen (Tylenol -) 650 mg PO Q4H PRN PRN Reason: FEVER Last Admin: 01/17/18 10:22 Dose: 650 mg Albuterol Sulfate (Ventolin 0.083% Nebulizer Soln -) 1 amp NEB Q4H PRN PRN Reason: SHORT OF BREATH/WHEEZING Last Admin: 01/20/18 10:15 Dose: 1 amp Aspirin (Asa -) 81 mg PO DAILY [facility] Last Admin: 01/21/18 11:05 Dose: 81 mg Atorvastatin Calcium (Lipitor -) 20 mg PO HS [facility] Last Admin: 01/20/18 21:08 Dose: 20 mg Budesonide/Formoterol Fumarate (Symbicort 160/4.5mcg -) 2 puff IH BID [facility] Last Admin: 01/21/18 11:06 Dose: 2 puff Gabapentin (Neurontin -) 600 mg PO TID [facility] Last Admin: 01/21/18 06:05 Dose: Not Given Heparin Sodium (Porcine) (Heparin -) 5,000 unit SQ TID [facility] Last Admin: 01/21/18 05:53 Dose: 5,000 unit Insulin Aspart (Novolog Vial Sliding Scale -) 1 vial SQ Q6H [facility]; Protocol Last Admin: 01/21/18 12:16 Dose: 4 units Insulin Detemir (Levemir Vial) 18 units SQ BID@0700,2200 [facility] Methylprednisolone Sodium Succinate (Solu-Medrol -) 40 mg IVPUSH Q8H-IV [facility] Last Admin: 01/21/18 11:06 Dose: 40 mg Metoprolol Tartrate (Lopressor -) 50 mg PO BID [facility] Last Admin: 01/21/18 11:05 Dose: 50 mg Pantoprazole Sodium (Protonix -) 20 mg PO DAILY [facility] Last Admin: 01/21/18 11:05 Dose: 20 mg Ramipril (Altace -) 10 mg PO DAILY [facility] Last Admin: 01/21/18 11:05 Dose: 10 mg Tamsulosin HCl (Flomax -) 0.4 mg PO DAILY@0830 [facility] Last Admin: 01/21/18 11:05 Dose: 0.4 mg Gen: NAD, less tachypneic at rest Heart: RRR Lung: decreased breath sounds at the bases Abd: soft, nontender, obese Ext: no edema Laboratory Results - last 24 hr 01/20/18 01/20/18 01/21/18 13:05 21:08 05:52 WBC RBC Hgb Hct MCV MCH MCHC RDW Plt Count MPV Absolute Neuts (auto) Neutrophils % Neutrophils % (Manual) Band Neutrophils % Lymphocytes % Lymphocytes % (Manual) Monocytes % Monocytes % (Manual) Eosinophils % Eosinophils % (Manual) Basophils % Basophils % (Manual) Myelocytes % (Man) Promyelocytes % (Man) Blast Cells % (Manual) Nucleated RBC % Metamyelocytes Anisocytosis Macrocytosis Puncture Site Left radial ABG pH 7.43 ABG pCO2 at Pt Temp 48.0 H ABG pO2 at Pt Temp 88.9 ABG HCO3 30.9 H ABG O2 Sat (Measured) 96.6 ABG O2 Content 15.6 ABG Base Excess 6.0 H Manjeet Test Positive O2 Delivery Device N/c Oxygen Flow Rate 4l Sodium Potassium Chloride Carbon Dioxide Anion Gap BUN Creatinine Creat Clearance w eGFR POC Glucometer 353 224 Random Glucose Calcium Total Bilirubin AST ALT Alkaline Phosphatase Total Protein Albumin Lipase 01/21/18 01/21/18 01/21/18 06:00 06:00 12:13 WBC 12.5 H RBC 3.74 L Hgb 11.5 L Hct 34.8 L MCV 92.9 MCH 30.6 MCHC 33.0 RDW 14.9 Plt Count 265 MPV 10.3 Absolute Neuts (auto) 11.3 Neutrophils % 90.5 H Neutrophils % (Manual) 88.1 H Band Neutrophils % 0.0 Lymphocytes % 4.8 L Lymphocytes % (Manual) 5.0 L Monocytes % 4.6 Monocytes % (Manual) 7 Eosinophils % 0.0 Eosinophils % (Manual) 0.0 Basophils % 0.1 Basophils % (Manual) 0.0 Myelocytes % (Man) 0 D Promyelocytes % (Man) 0 Blast Cells % (Manual) 0 Nucleated RBC % 0 Metamyelocytes 0 Anisocytosis 1+ Macrocytosis 1+ Puncture Site ABG pH ABG pCO2 at Pt Temp ABG pO2 at Pt Temp ABG HCO3 ABG O2 Sat (Measured) ABG O2 Content ABG Base Excess Manjeet Test O2 Delivery Device Oxygen Flow Rate Sodium 141 Potassium 4.9 Chloride 102 Carbon Dioxide 35 H Anion Gap 4 L BUN 24 H Creatinine 1.1 Creat Clearance w eGFR > 60 POC Glucometer 246 Random Glucose 247 H D Calcium 8.3 L Total Bilirubin 0.3 AST 13 L D ALT 20 D Alkaline Phosphatase 116 D Total Protein 5.7 L Albumin 2.4 L Lipase 319 A/P Acute Pancreatitis Sepsis COPD Chronic Hypoxic Respiratory Failure CAD AV Block s/p PPPM LV Diastolic Dysfunction Acute Kidney Injury improving - ABX per ID - monitor urine output, creatinine - Medrol at current dose, will taper tomorrow - Inhaled bronchodilators standing and PRN - O2 to keep Spo2 >90% - DVT prophylaxis Dr Lujan
[2018-01-21] MEDS: ALBUTEROL SO4 0.083% IH SOL 2.5 MG/3 ML VIAL.NEB. NEB PRN ×2 (17:05→20:40)
[2018-01-21] MEDS ORDERED: INSULIN (NOVOLOG) ASPART 100 UNITS/ML 10ML VIAL ONE (21:25)
[2018-01-21] MEDS: ATORVASTATIN CA 20 MG TABLET (FP) PO SCH (21:28)
[2018-01-22] MEDS: methylPREDNISolone NA SUCC 40 MG/1 ML VIAL IVPUSH SCH ×3 (01:22→21:05)
[2018-01-22] MEDS: HEPARIN NA (PORCINE) 5,000 UNITS/ML 1ML VIAL SQ SCH ×3 (05:29→21:05)
[2018-01-22] MEDS: GABAPENTIN 300 MG CAPSULE (FP) PO SCH ×3 (05:29→21:05)
[2018-01-22] MEDS: INSULIN SLIDING SCALE (NOVOLOG) 1 VIAL SQ SCH ×4 (05:31→23:25)
[2018-01-22] MEDS: INSULIN (LEVEMIR) 100 UNITS/ML UNITS SQ SCH ×2 (05:59→21:06)
[2018-01-22] MEDS: ALBUTEROL SO4 0.083% IH SOL 2.5 MG/3 ML VIAL.NEB. NEB PRN (08:48)
[2018-01-22] MEDS: ASPIRIN 81 MG CHEWABLE TABLETS PO SCH (09:28)
[2018-01-22] MEDS: METOPROLOL TARTRATE 50 MG TABLET (FP) PO SCH ×2 (09:28→21:05)
[2018-01-22] MEDS: PANTOPRAZOLE 20 MG TABLET (FP) PO SCH (09:28)
[2018-01-22] MEDS: TAMSULOSIN HCL 0.4 MG CAP.ER.24H (FP) PO SCH (09:28)
[2018-01-22] MEDS: RAMIPRIL 5 MG CAPSULE (FP) PO SCH (09:29)
[2018-01-22] MEDS ORDERED: PT OWN MED DRAWER 7, Y5N ONE (09:31)
[2018-01-22] MEDS: BUDESONIDE/FORMETEROL FUMARATE 160/4.5 mcg INHALER IH SCH ×2 (09:31→21:10)
--- NOTE | 2018-01-22 11:23 | PN ---
Progress Note, Physician History of Present Illness: Epigastric abdominal pain without nausea or emesis improving, tolerating soft diet, dyspnea, cough and wheezes on improving on NC. - Current Medication List Current Medications: Active Medications Acetaminophen (Tylenol -) 650 mg PO Q4H PRN PRN Reason: FEVER Last Admin: 01/17/18 10:22 Dose: 650 mg Albuterol Sulfate (Ventolin 0.083% Nebulizer Soln -) 1 amp NEB Q4H PRN PRN Reason: SHORT OF BREATH/WHEEZING Last Admin: 01/22/18 08:48 Dose: 1 amp Aspirin (Asa -) 81 mg PO DAILY [facility] Last Admin: 01/22/18 09:28 Dose: 81 mg Atorvastatin Calcium (Lipitor -) 20 mg PO HS [facility] Last Admin: 01/21/18 21:28 Dose: 20 mg Budesonide/Formoterol Fumarate (Symbicort 160/4.5mcg -) 2 puff IH BID [facility] Last Admin: 01/22/18 09:31 Dose: 2 puff Gabapentin (Neurontin -) 600 mg PO TID [facility] Last Admin: 01/22/18 05:29 Dose: 600 mg Heparin Sodium (Porcine) (Heparin -) 5,000 unit SQ TID [facility] Last Admin: 01/22/18 05:29 Dose: 5,000 unit Insulin Aspart (Novolog Vial Sliding Scale -) 1 vial SQ Q6H [facility]; Protocol Last Admin: 01/22/18 05:31 Dose: 2 units Insulin Detemir (Levemir Vial) 18 units SQ BID@0700,2200 [facility] Last Admin: 01/22/18 05:59 Dose: 18 units Methylprednisolone Sodium Succinate (Solu-Medrol -) 40 mg IVPUSH Q8H-IV [facility] Last Admin: 01/22/18 09:28 Dose: 40 mg Metoprolol Tartrate (Lopressor -) 50 mg PO BID [facility] Last Admin: 01/22/18 09:28 Dose: 50 mg Pantoprazole Sodium (Protonix -) 20 mg PO DAILY [facility] Last Admin: 01/22/18 09:28 Dose: 20 mg Ramipril (Altace -) 10 mg PO DAILY [facility] Last Admin: 01/22/18 09:29 Dose: 10 mg Tamsulosin HCl (Flomax -) 0.4 mg PO DAILY@0830 [facility] Last Admin: 01/22/18 09:28 Dose: 0.4 mg - Objective Vital Signs: Vital Signs Temperature 98 F 01/22/18 09:00 Pulse Rate 67 01/22/18 09:00 Respiratory Rate 22 01/22/18 09:00 Blood Pressure 160/66 01/22/18 09:00 O2 Sat by Pulse Oximetry (%) 96 01/21/18 21:00 Constitutional: Yes: No Distress, Calm Neck: Yes: Supple Cardiovascular: Yes: Regular Rate and Rhythm Respiratory: Yes: Regular, Diminished Gastrointestinal: Yes: Normal Bowel Sounds, Soft, Abdomen, Obese Edema: No Labs: CBC, BMP 01/21/18 06:00 01/21/18 06:00 INR, PTT INR 1.38 (0.82-1.09) H 01/10/18 15:25 Problem List - Problems (1) Pacemaker Code(s): Z95.0 - PRESENCE OF CARDIAC PACEMAKER (2) Pancreatitis Code(s): K85.90 - ACUTE PANCREATITIS WITHOUT NECROSIS OR INFECTION, UNSP Qualifiers: Chronicity: acute Pancreatitis type: unspecified pancreatitis type Acute pancreatitis complication: unspecified Qualified Code(s): K85.90 - Acute pancreatitis without necrosis or infection, unspecified (3) Diastolic dysfunction Code(s): I51.9 - HEART DISEASE, UNSPECIFIED (4) Demand ischemia Code(s): I24.8 - OTHER FORMS OF ACUTE ISCHEMIC HEART DISEASE (5) COPD (chronic obstructive pulmonary disease) Code(s): J44.9 - CHRONIC OBSTRUCTIVE PULMONARY DISEASE, UNSPECIFIED Qualifiers: COPD type: unspecified COPD Qualified Code(s): J44.9 - Chronic obstructive pulmonary disease, unspecified Assessment/Plan Echocardiography study was technically suboptimal which revealed normal LV size and function, LVEF 60-65%, no significant valvular pathology 1. Acute pancreatitis, resolved 2. Sepsis syndrome, resolved 3. 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 AV block post PPM 5. Diastolic LV dysfunction chronic class 0-I NYHA classification LV failure, clinically appears euvolemic/compensated, 6. Hypertension not at goal 7. Chronic Hypoxic Respiratory Failure/COPD on home O2 therapy with exacerbation 8. Acute kidney injury resolving PLAN: 1. Continue Lopressor 50 bid 2. Continue Altace 10 qd and titrate dosage as needed and as tolerated 3. Continue Lipitor 20 qhs 4. Continue ASA 81 qd 5. Lasix prn 6. Antibiotics as per ID team 7. Bronchodilators, O2 as needed and IV steroid taper with GI and DVT prophylaxis as per pulmonary team 8. Can be transferred to floor care from the cardiovascular point of view 9. F/u HIDA scan results
--- NOTE | 2018-01-22 12:41 | PN ---
Progress Note (short form) - Note Progress Note: Still with epigastric discomfort. Shortness of breath/cough slowly resolving, but still not at baseline. No CP. Remains afebrile. Intake & Output 01/19/18 01/20/18 01/21/18 01/22/18 23:59 23:59 23:59 23:59 Intake Total 710 360 750 400 Output Total 1220 1750 1510 970 Balance -510 -1390 -760 -570 Last Vital Signs Temp Pulse Resp BP Pulse Ox 98 F 67 22 160/66 94 L 01/22/18 09:00 01/22/18 09:00 01/22/18 09:00 01/22/18 09:00 01/22/18 10:41 Active Medications Acetaminophen (Tylenol -) 650 mg PO Q4H PRN PRN Reason: FEVER Last Admin: 01/17/18 10:22 Dose: 650 mg Albuterol Sulfate (Ventolin 0.083% Nebulizer Soln -) 1 amp NEB Q4H PRN PRN Reason: SHORT OF BREATH/WHEEZING Last Admin: 01/22/18 08:48 Dose: 1 amp Aspirin (Asa -) 81 mg PO DAILY [facility] Last Admin: 01/22/18 09:28 Dose: 81 mg Atorvastatin Calcium (Lipitor -) 20 mg PO HS [facility] Last Admin: 01/21/18 21:28 Dose: 20 mg Budesonide/Formoterol Fumarate (Symbicort 160/4.5mcg -) 2 puff IH BID [facility] Last Admin: 01/22/18 09:31 Dose: 2 puff Gabapentin (Neurontin -) 600 mg PO TID [facility] Last Admin: 01/22/18 05:29 Dose: 600 mg Heparin Sodium (Porcine) (Heparin -) 5,000 unit SQ TID [facility] Last Admin: 01/22/18 05:29 Dose: 5,000 unit Insulin Aspart (Novolog Vial Sliding Scale -) 1 vial SQ Q6H [facility]; Protocol Last Admin: 01/22/18 12:01 Dose: 6 units Insulin Detemir (Levemir Vial) 18 units SQ BID@0700,2200 [facility] Last Admin: 01/22/18 05:59 Dose: 18 units Methylprednisolone Sodium Succinate (Solu-Medrol -) 40 mg IVPUSH Q8H-IV [facility] Last Admin: 01/22/18 09:28 Dose: 40 mg Metoprolol Tartrate (Lopressor -) 50 mg PO BID [facility] Last Admin: 01/22/18 09:28 Dose: 50 mg Pantoprazole Sodium (Protonix -) 20 mg PO DAILY [facility] Last Admin: 01/22/18 09:28 Dose: 20 mg Ramipril (Altace -) 10 mg PO DAILY [facility] Last Admin: 01/22/18 09:29 Dose: 10 mg Tamsulosin HCl (Flomax -) 0.4 mg PO DAILY@0830 [facility] Last Admin: 01/22/18 09:28 Dose: 0.4 mg Gen: NAD, less tachypneic at rest Heart: RRR Lung: decreased breath sounds at the bases Abd: soft, nontender, obese Ext: no edema Laboratory Results - last 24 hr 01/20/18 01/20/18 01/21/18 17:12 17:14 17:17 POC Glucometer 273 277 219 01/21/18 01/22/18 01/22/18 21:27 05:30 11:59 POC Glucometer 256 164 267 A/P Acute Pancreatitis Sepsis COPD Chronic Hypoxic Respiratory Failure CAD AV Block s/p PPM LV Diastolic Dysfunction Acute Kidney Injury improving - GI workup ongoing - ABX per ID - monitor urine output, creatinine - Medrol taper - Inhaled bronchodilators standing and PRN - O2 to keep Spo2 >90% - DVT prophylaxis Dr Lujan
--- NOTE | 2018-01-22 20:08 | PN ---
Progress Note, Physician Chief Complaint: feeling better - Current Medication List Current Medications: Active Medications Acetaminophen (Tylenol -) 650 mg PO Q4H PRN PRN Reason: FEVER Last Admin: 01/17/18 10:22 Dose: 650 mg Albuterol Sulfate (Ventolin 0.083% Nebulizer Soln -) 1 amp NEB Q4H PRN PRN Reason: SHORT OF BREATH/WHEEZING Last Admin: 01/22/18 08:48 Dose: 1 amp Aspirin (Asa -) 81 mg PO DAILY [facility] Last Admin: 01/22/18 09:28 Dose: 81 mg Atorvastatin Calcium (Lipitor -) 20 mg PO HS [facility] Last Admin: 01/21/18 21:28 Dose: 20 mg Budesonide/Formoterol Fumarate (Symbicort 160/4.5mcg -) 2 puff IH BID [facility] Last Admin: 01/22/18 09:31 Dose: 2 puff Gabapentin (Neurontin -) 600 mg PO TID [facility] Last Admin: 01/22/18 14:48 Dose: 600 mg Heparin Sodium (Porcine) (Heparin -) 5,000 unit SQ TID [facility] Last Admin: 01/22/18 14:48 Dose: 5,000 unit Insulin Aspart (Novolog Vial Sliding Scale -) 1 vial SQ Q6H [facility]; Protocol Last Admin: 01/22/18 19:00 Dose: 4 units Insulin Detemir (Levemir Vial) 18 units SQ BID@0700,2200 [facility] Last Admin: 01/22/18 05:59 Dose: 18 units Methylprednisolone Sodium Succinate (Solu-Medrol -) 30 mg IVPUSH Q12H [facility] Metoprolol Tartrate (Lopressor -) 50 mg PO BID [facility] Last Admin: 01/22/18 09:28 Dose: 50 mg Pantoprazole Sodium (Protonix -) 20 mg PO DAILY [facility] Last Admin: 01/22/18 09:28 Dose: 20 mg Ramipril (Altace -) 10 mg PO DAILY [facility] Last Admin: 01/22/18 09:29 Dose: 10 mg Tamsulosin HCl (Flomax -) 0.4 mg PO DAILY@0830 [facility] Last Admin: 01/22/18 09:28 Dose: 0.4 mg - Objective Vital Signs: Vital Signs Temperature 96.8 F L 01/22/18 18:21 Pulse Rate 64 01/22/18 18:21 Respiratory Rate 22 01/22/18 18:21 Blood Pressure 159/99 01/22/18 18:21 O2 Sat by Pulse Oximetry (%) 98 01/22/18 16:40 Constitutional: Yes: No Distress Cardiovascular: Yes: Regular Rate and Rhythm Respiratory: Yes: Diminished, Rhonchi Gastrointestinal: Yes: Normal Bowel Sounds, Soft, Abdomen, Obese. No: Palpable Mass, Tenderness Edema: Yes Edema: LLE: 1+, RLE: 1+ Labs: CBC, BMP 01/21/18 06:00 01/21/18 06:00 INR, PTT INR 1.38 (0.82-1.09) H 01/10/18 15:25 Problem List - Problems (1) FRANCISCO (acute kidney injury) Code(s): N17.9 - ACUTE KIDNEY FAILURE, UNSPECIFIED (2) Colitis Code(s): K52.9 - NONINFECTIVE GASTROENTERITIS AND COLITIS, UNSPECIFIED (3) Sepsis Code(s): A41.9 - SEPSIS, UNSPECIFIED ORGANISM (4) Severe sepsis Code(s): A41.9 - SEPSIS, UNSPECIFIED ORGANISM; R65.20 - SEVERE SEPSIS WITHOUT SEPTIC SHOCK (5) Volume overload Code(s): E87.70 - FLUID OVERLOAD, UNSPECIFIED Assessment/Plan PLAN on iv solumedrol, nebs increase Insulin HIDA scan done- results pending continue with meds OOB pt tolerating diet
[2018-01-22] MEDS: ATORVASTATIN CA 20 MG TABLET (FP) PO SCH (21:05)
[2018-01-22] MEDS ORDERED: INSULIN (NOVOLOG) ASPART 100 UNITS/ML 10ML VIAL ONE (21:08)
[2018-01-23] MEDS: INSULIN SLIDING SCALE (NOVOLOG) 1 VIAL SQ SCH ×4 (06:07→22:22)
[2018-01-23] MEDS: INSULIN (LEVEMIR) 100 UNITS/ML UNITS SQ SCH ×2 (06:07→21:34)
[2018-01-23] MEDS: GABAPENTIN 300 MG CAPSULE (FP) PO SCH ×3 (06:07→21:35)
[2018-01-23] MEDS: HEPARIN NA (PORCINE) 5,000 UNITS/ML 1ML VIAL SQ SCH ×3 (06:07→21:33)
[2018-01-23] MEDS: TAMSULOSIN HCL 0.4 MG CAP.ER.24H (FP) PO SCH (09:54)
[2018-01-23] MEDS: ASPIRIN 81 MG CHEWABLE TABLETS PO SCH (09:55)
[2018-01-23] MEDS: PANTOPRAZOLE 20 MG TABLET (FP) PO SCH (09:55)
[2018-01-23] MEDS: methylPREDNISolone NA SUCC 40 MG/1 ML VIAL IVPUSH SCH ×2 (09:55→21:35)
[2018-01-23] MEDS: RAMIPRIL 5 MG CAPSULE (FP) PO SCH (09:55)
[2018-01-23] MEDS: METOPROLOL TARTRATE 50 MG TABLET (FP) PO SCH ×2 (09:55→21:35)
[2018-01-23] MEDS: BUDESONIDE/FORMETEROL FUMARATE 160/4.5 mcg INHALER IH SCH ×2 (09:56→21:39)
--- NOTE | 2018-01-23 11:13 | PN ---
Progress Note (short form) - Note Progress Note: Feels better today. Shortness of breath/cough slowly continues to resolve. No CP. Remains afebrile. Intake & Output 01/20/18 01/21/18 01/22/18 01/23/18 23:59 23:59 23:59 23:59 Intake Total 082 993 8652 120 Output Total 1750 1510 1770 600 Balance -1390 -760 -670 -480 Last Vital Signs Temp Pulse Resp BP Pulse Ox 97.8 F 75 20 144/59 95 01/23/18 09:58 01/23/18 09:58 01/23/18 09:58 01/23/18 09:58 01/23/18 10:47 Active Medications Acetaminophen (Tylenol -) 650 mg PO Q4H PRN PRN Reason: FEVER Last Admin: 01/17/18 10:22 Dose: 650 mg Albuterol Sulfate (Ventolin 0.083% Nebulizer Soln -) 1 amp NEB Q4H PRN PRN Reason: SHORT OF BREATH/WHEEZING Last Admin: 01/22/18 08:48 Dose: 1 amp Aspirin (Asa -) 81 mg PO DAILY [facility] Last Admin: 01/23/18 09:55 Dose: 81 mg Atorvastatin Calcium (Lipitor -) 20 mg PO HS [facility] Last Admin: 01/22/18 21:05 Dose: 20 mg Budesonide/Formoterol Fumarate (Symbicort 160/4.5mcg -) 2 puff IH BID [facility] Last Admin: 01/23/18 09:56 Dose: 2 puff Gabapentin (Neurontin -) 600 mg PO TID [facility] Last Admin: 01/23/18 06:07 Dose: 600 mg Heparin Sodium (Porcine) (Heparin -) 5,000 unit SQ TID [facility] Last Admin: 01/23/18 06:07 Dose: 5,000 unit Insulin Aspart (Novolog Vial Sliding Scale -) 1 vial SQ Q6H [facility]; Protocol Last Admin: 01/23/18 06:07 Dose: 2 units Insulin Detemir (Levemir Vial) 22 units SQ BID@0700,2200 [facility] Last Admin: 01/23/18 06:07 Dose: 22 units Methylprednisolone Sodium Succinate (Solu-Medrol -) 30 mg IVPUSH Q12H [facility] Last Admin: 01/23/18 09:55 Dose: 30 mg Metoprolol Tartrate (Lopressor -) 50 mg PO BID [facility] Last Admin: 01/23/18 09:55 Dose: 50 mg Pantoprazole Sodium (Protonix -) 20 mg PO DAILY [facility] Last Admin: 01/23/18 09:55 Dose: 20 mg Ramipril (Altace -) 10 mg PO DAILY [facility] Last Admin: 01/23/18 09:55 Dose: 10 mg Tamsulosin HCl (Flomax -) 0.4 mg PO DAILY@0830 [facility] Last Admin: 01/23/18 09:54 Dose: 0.4 mg Gen: NAD, less tachypneic at rest Heart: RRR Lung: decreased breath sounds at the bases Abd: soft, nontender, obese Ext: no edema Laboratory Results - last 24 hr 01/22/18 01/22/18 01/22/18 11:59 17:26 21:02 POC Glucometer 267 218 243 01/23/18 05:04 POC Glucometer 174 A/P Acute Pancreatitis Sepsis COPD Chronic Hypoxic Respiratory Failure CAD AV Block s/p PPM LV Diastolic Dysfunction Acute Kidney Injury improving - ABX per ID - monitor urine output, creatinine - Change to Prednisone in AM - Inhaled bronchodilators standing and PRN - O2 to keep Spo2 >90% - DVT prophylaxis Dr Lujan
--- NOTE | 2018-01-23 11:33 | PN ---
Progress Note, Physician History of Present Illness: Epigastric abdominal pain without nausea or emesis resolved, tolerating soft diet, dyspnea, cough and wheezes on improving on NC. - Current Medication List Current Medications: Active Medications Acetaminophen (Tylenol -) 650 mg PO Q4H PRN PRN Reason: FEVER Last Admin: 01/17/18 10:22 Dose: 650 mg Albuterol Sulfate (Ventolin 0.083% Nebulizer Soln -) 1 amp NEB Q4H PRN PRN Reason: SHORT OF BREATH/WHEEZING Last Admin: 01/22/18 08:48 Dose: 1 amp Aspirin (Asa -) 81 mg PO DAILY [facility] Last Admin: 01/23/18 09:55 Dose: 81 mg Atorvastatin Calcium (Lipitor -) 20 mg PO HS [facility] Last Admin: 01/22/18 21:05 Dose: 20 mg Budesonide/Formoterol Fumarate (Symbicort 160/4.5mcg -) 2 puff IH BID [facility] Last Admin: 01/23/18 09:56 Dose: 2 puff Gabapentin (Neurontin -) 600 mg PO TID [facility] Last Admin: 01/23/18 06:07 Dose: 600 mg Heparin Sodium (Porcine) (Heparin -) 5,000 unit SQ TID [facility] Last Admin: 01/23/18 06:07 Dose: 5,000 unit Insulin Aspart (Novolog Vial Sliding Scale -) 1 vial SQ Q6H [facility]; Protocol Last Admin: 01/23/18 06:07 Dose: 2 units Insulin Detemir (Levemir Vial) 22 units SQ BID@0700,2200 [facility] Last Admin: 01/23/18 06:07 Dose: 22 units Methylprednisolone Sodium Succinate (Solu-Medrol -) 30 mg IVPUSH Q12H [facility] Stop: 01/23/18 23:59 Last Admin: 01/23/18 09:55 Dose: 30 mg Metoprolol Tartrate (Lopressor -) 50 mg PO BID [facility] Last Admin: 01/23/18 09:55 Dose: 50 mg Pantoprazole Sodium (Protonix -) 20 mg PO DAILY [facility] Last Admin: 01/23/18 09:55 Dose: 20 mg Prednisone (Deltasone -) 40 mg PO DAILY [facility] Ramipril (Altace -) 10 mg PO DAILY [facility] Last Admin: 01/23/18 09:55 Dose: 10 mg Tamsulosin HCl (Flomax -) 0.4 mg PO DAILY@0830 [facility] Last Admin: 01/23/18 09:54 Dose: 0.4 mg - Objective Vital Signs: Vital Signs Temperature 97.8 F 01/23/18 09:58 Pulse Rate 75 01/23/18 09:58 Respiratory Rate 20 01/23/18 09:58 Blood Pressure 144/59 01/23/18 09:58 O2 Sat by Pulse Oximetry (%) 95 01/23/18 10:47 Constitutional: Yes: No Distress, Calm Neck: Yes: Supple Cardiovascular: Yes: Regular Rate and Rhythm Respiratory: Yes: Regular, Diminished, On Nasal O2 Gastrointestinal: Yes: Normal Bowel Sounds, Soft, Abdomen, Obese Edema: Yes Edema: LLE: Trace, RLE: Trace Labs: CBC, BMP 01/21/18 06:00 01/21/18 06:00 INR, PTT INR 1.38 (0.82-1.09) H 01/10/18 15:25 Problem List - Problems (1) Pacemaker Code(s): Z95.0 - PRESENCE OF CARDIAC PACEMAKER (2) Pancreatitis Code(s): K85.90 - ACUTE PANCREATITIS WITHOUT NECROSIS OR INFECTION, UNSP Qualifiers: Chronicity: acute Pancreatitis type: unspecified pancreatitis type Acute pancreatitis complication: unspecified Qualified Code(s): K85.90 - Acute pancreatitis without necrosis or infection, unspecified (3) Diastolic dysfunction Code(s): I51.9 - HEART DISEASE, UNSPECIFIED (4) Demand ischemia Code(s): I24.8 - OTHER FORMS OF ACUTE ISCHEMIC HEART DISEASE (5) COPD (chronic obstructive pulmonary disease) Code(s): J44.9 - CHRONIC OBSTRUCTIVE PULMONARY DISEASE, UNSPECIFIED Qualifiers: COPD type: unspecified COPD Qualified Code(s): J44.9 - Chronic obstructive pulmonary disease, unspecified Assessment/Plan Echocardiography study was technically suboptimal which revealed normal LV size and function, LVEF 60-65%, no significant valvular pathology 1. Acute pancreatitis, resolved 2. Sepsis syndrome, resolved 3. 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 AV block post PPM 5. Diastolic LV dysfunction chronic class 0-I NYHA classification LV failure, clinically appears euvolemic/compensated, 6. Hypertension not at goal 7. Chronic Hypoxic Respiratory Failure/COPD on home O2 therapy with exacerbation 8. Acute kidney injury resolving PLAN: 1. Continue Lopressor 50 bid 2. Continue Altace 10 qd and titrate dosage as needed and as tolerated 3. Continue Lipitor 20 qhs 4. Continue ASA 81 qd 5. Lasix prn 6. Antibiotics as per ID team 7. Bronchodilators, O2 as needed and oral steroid taper with GI and DVT prophylaxis as per pulmonary team 8. Can be transferred to floor care from the cardiovascular point of view 9. F/u HIDA scan results
--- NOTE | 2018-01-23 12:21 | PN ---
Progress Note (short form) - Note Progress Note: - Note Progress Note: pt seen/ examined in tele awake. coughing no abd pain Vital Signs - 24 hr 01/22/18 01/22/18 01/22/18 14:26 16:40 18:21 Temperature 97.9 F 96.8 F L Pulse Rate 79 64 Respiratory 22 22 Rate Blood Pressure 157/92 159/99 O2 Sat by Pulse 98 Oximetry (%) 01/22/18 01/22/18 01/23/18 21:00 22:00 02:00 Temperature 98.2 F 98.8 F Pulse Rate 78 76 Respiratory 22 20 20 Rate Blood Pressure 168/66 154/79 O2 Sat by Pulse 97 99 Oximetry (%) 01/23/18 01/23/18 01/23/18 06:00 09:00 09:58 Temperature 98.8 F 97.8 F Pulse Rate 66 75 Respiratory 20 20 20 Rate Blood Pressure 156/80 144/59 O2 Sat by Pulse 95 Oximetry (%) 01/23/18 10:47 Temperature Pulse Rate Respiratory Rate Blood Pressure O2 Sat by Pulse 95 Oximetry (%) Current Medications Generic Name Dose Route Start Last Admin Trade Name Freq PRN Reason Stop Dose Admin Acetaminophen 650 mg 01/16/18 15:12 01/17/18 10:22 Tylenol - PO 650 mg Q4H PRN Administration FEVER Albuterol Sulfate 1 amp 01/20/18 10:17 01/22/18 08:48 Ventolin 0.083% Nebulizer Soln - NEB 1 amp Q4H PRN Administration SHORT OF BREATH/WHEEZING Aspirin 81 mg 01/14/18 10:00 01/23/18 09:55 Asa - PO 81 mg DAILY [facility] Administration Atorvastatin Calcium 20 mg 01/14/18 22:00 01/22/18 21:05 Lipitor - PO 20 mg HS [facility] Administration Budesonide/Formoterol Fumarate 2 puff 01/14/18 10:00 01/23/18 09:56 Symbicort 160/4.5mcg - IH 2 puff BID [facility] Administration Gabapentin 600 mg 01/14/18 14:00 01/23/18 06:07 Neurontin - PO 600 mg TID [facility] Administration Heparin Sodium (Porcine) 5,000 unit 01/14/18 14:00 01/23/18 06:07 Heparin - SQ 5,000 unit TID [facility] Administration Insulin Aspart 1 vial 07/31/18 11:16 01/23/18 12:20 Novolog Vial Sliding Scale - SQ 4 units Q6H [facility] Administration Protocol Insulin Detemir 22 units 01/22/18 22:00 01/23/18 06:07 Levemir Vial SQ 22 units BID@0700,2200 [facility] Administration Methylprednisolone Sodium Succinate 30 mg 01/22/18 22:00 01/23/18 09:55 Solu-Medrol - IVPUSH 01/23/18 23:59 30 mg Q12H [facility] Administration Metoprolol Tartrate 50 mg 01/17/18 12:53 01/23/18 09:55 Lopressor - PO 50 mg BID [facility] Administration Pantoprazole Sodium 20 mg 01/14/18 10:00 01/23/18 09:55 Protonix - PO 20 mg DAILY [facility] Administration Prednisone 40 mg 01/24/18 10:00 Deltasone - PO DAILY [facility] Ramipril 10 mg 01/21/18 08:24 01/23/18 09:55 Altace - PO 10 mg DAILY [facility] Administration Tamsulosin HCl 0.4 mg 01/15/18 08:30 01/23/18 09:54 Flomax - PO 0.4 mg DAILY@0830 [facility] Administration Laboratory Results - last 24 hr 01/22/18 01/22/18 01/22/18 11:59 17:26 21:02 POC Glucometer 267 218 243 01/23/18 05:04 POC Glucometer 174 Physical Exam. Constitutional: Yes: No Distress, Calm. Cardiovascular: Yes: Regular Rate and Rhythm Respiratory: Yes: Diminished, rales and ronchi diffuse+ Gastrointestinal: Yes: Normal Bowel Sounds, Soft, Edema: No Problem List - Problems (1) FRANCISCO (acute kidney injury) Code(s): N17.9 - ACUTE KIDNEY FAILURE, UNSPECIFIED (2) Colitis Code(s): K52.9 - NONINFECTIVE GASTROENTERITIS AND COLITIS, UNSPECIFIED (3) Sepsis Code(s): A41.9 - SEPSIS, UNSPECIFIED ORGANISM (4) Severe sepsis Code(s): A41.9 - SEPSIS, UNSPECIFIED ORGANISM; R65.20 - SEVERE SEPSIS WITHOUT SEPTIC SHOCK (5) Volume overload Code(s): E87.70 - FLUID OVERLOAD, UNSPECIFIED Assessment/Plan Clinically better Pancreatitis-- better volume overload Sepsis Continue present care - changed to PO Prednisone clinically better dc plan in AM to [place] -tolerating diet Problem List - Problems (1) FRANCISCO (acute kidney injury) Code(s): N17.9 - ACUTE KIDNEY FAILURE, UNSPECIFIED (2) Colitis Code(s): K52.9 - NONINFECTIVE GASTROENTERITIS AND COLITIS, UNSPECIFIED (3) Sepsis Code(s): A41.9 - SEPSIS, UNSPECIFIED ORGANISM (4) Severe sepsis Code(s): A41.9 - SEPSIS, UNSPECIFIED ORGANISM; R65.20 - SEVERE SEPSIS WITHOUT SEPTIC SHOCK (5) Volume overload Code(s): E87.70 - FLUID OVERLOAD, UNSPECIFIED
[2018-01-23] MEDS ORDERED: SIMETHICONE 80 MG TAB.CHEW (FP) PO PRN (12:31)
[2018-01-23] MEDS ORDERED: TAMSULOSIN HCL 0.4 MG CAP.ER.24H (FP) PO SCH (12:39)
[2018-01-23] MEDS ORDERED: INSULIN (NOVOLOG) ASPART 100 UNITS/ML 10ML VIAL ONE (21:22)
[2018-01-23] MEDS: ATORVASTATIN CA 20 MG TABLET (FP) PO SCH (21:35)
[2018-01-24] MEDS: INSULIN SLIDING SCALE (NOVOLOG) 1 VIAL SQ SCH ×3 (05:46→17:20)
[2018-01-24] MEDS: GABAPENTIN 300 MG CAPSULE (FP) PO SCH ×2 (07:01→13:11)
[2018-01-24] MEDS: INSULIN (LEVEMIR) 100 UNITS/ML UNITS SQ SCH (07:01)
[2018-01-24] MEDS: HEPARIN NA (PORCINE) 5,000 UNITS/ML 1ML VIAL SQ SCH ×2 (07:01→13:12)
[2018-01-24] MEDS: ALBUTEROL SO4 0.083% IH SOL 2.5 MG/3 ML VIAL.NEB. NEB PRN (07:25)
--- NOTE | 2018-01-24 08:28 | PN ---
Progress Note, Physician History of Present Illness: Epigastric abdominal pain without nausea or emesis resolved, tolerating soft diet, dyspnea, cough and wheezes on resolved on NC. - Current Medication List Current Medications: Active Medications Acetaminophen (Tylenol -) 650 mg PO Q4H PRN PRN Reason: FEVER Last Admin: 01/17/18 10:22 Dose: 650 mg Albuterol Sulfate (Ventolin 0.083% Nebulizer Soln -) 1 amp NEB Q4H PRN PRN Reason: SHORT OF BREATH/WHEEZING Last Admin: 01/24/18 07:25 Dose: 1 amp Aspirin (Asa -) 81 mg PO DAILY [facility] Last Admin: 01/23/18 09:55 Dose: 81 mg Atorvastatin Calcium (Lipitor -) 20 mg PO HS [facility] Last Admin: 01/23/18 21:35 Dose: 20 mg Budesonide/Formoterol Fumarate (Symbicort 160/4.5mcg -) 2 puff IH BID [facility] Last Admin: 01/23/18 21:39 Dose: 2 puff Gabapentin (Neurontin -) 600 mg PO TID [facility] Last Admin: 01/24/18 07:01 Dose: 600 mg Heparin Sodium (Porcine) (Heparin -) 5,000 unit SQ TID [facility] Last Admin: 01/24/18 07:01 Dose: 5,000 unit Insulin Aspart (Novolog Vial Sliding Scale -) 1 vial SQ Q6H [facility]; Protocol Last Admin: 01/24/18 05:46 Dose: Not Given Insulin Detemir (Levemir Vial) 22 units SQ BID@0700,2200 [facility] Last Admin: 01/24/18 07:01 Dose: 22 units Metoprolol Tartrate (Lopressor -) 50 mg PO BID [facility] Last Admin: 01/23/18 21:35 Dose: 50 mg Pantoprazole Sodium (Protonix -) 20 mg PO DAILY [facility] Last Admin: 01/23/18 09:55 Dose: 20 mg Prednisone (Deltasone -) 40 mg PO DAILY [facility] Ramipril (Altace -) 10 mg PO DAILY [facility] Last Admin: 01/23/18 09:55 Dose: 10 mg Simethicone (Mylicon -) 80 mg PO Q4H PRN PRN Reason: GAS Last Admin: 01/23/18 14:03 Dose: 80 mg Tamsulosin HCl (Flomax -) 0.8 mg PO DAILY@0830 [facility] - Objective Vital Signs: Vital Signs Temperature 98 F 01/24/18 05:47 Pulse Rate 61 01/24/18 05:55 Respiratory Rate 16 01/24/18 05:55 Blood Pressure 161/74 01/24/18 05:55 O2 Sat by Pulse Oximetry (%) 100 01/24/18 07:25 Constitutional: Yes: No Distress, Calm Neck: Yes: Supple Cardiovascular: Yes: Regular Rate and Rhythm Respiratory: Yes: Regular, Diminished, On Nasal O2 Gastrointestinal: Yes: Normal Bowel Sounds, Soft, Abdomen, Obese Edema: Yes Edema: LLE: 1+, RLE: 1+ Labs: CBC, BMP 01/21/18 06:00 01/21/18 06:00 INR, PTT INR 1.38 (0.82-1.09) H 01/10/18 15:25 Problem List - Problems (1) Pacemaker Code(s): Z95.0 - PRESENCE OF CARDIAC PACEMAKER (2) Pancreatitis Code(s): K85.90 - ACUTE PANCREATITIS WITHOUT NECROSIS OR INFECTION, UNSP Qualifiers: Chronicity: acute Pancreatitis type: unspecified pancreatitis type Acute pancreatitis complication: unspecified Qualified Code(s): K85.90 - Acute pancreatitis without necrosis or infection, unspecified (3) Diastolic dysfunction Code(s): I51.9 - HEART DISEASE, UNSPECIFIED (4) Demand ischemia Code(s): I24.8 - OTHER FORMS OF ACUTE ISCHEMIC HEART DISEASE (5) COPD (chronic obstructive pulmonary disease) Code(s): J44.9 - CHRONIC OBSTRUCTIVE PULMONARY DISEASE, UNSPECIFIED Qualifiers: COPD type: unspecified COPD Qualified Code(s): J44.9 - Chronic obstructive pulmonary disease, unspecified Assessment/Plan Echocardiography study was technically suboptimal which revealed normal LV size and function, LVEF 60-65%, no significant valvular pathology 1. Acute pancreatitis, resolved 2. Sepsis syndrome, resolved 3. 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 AV block post PPM 5. Diastolic LV dysfunction chronic class 0-I NYHA classification LV failure, clinically appears euvolemic/compensated, 6. Hypertension not at goal 7. Chronic Hypoxic Respiratory Failure/COPD on home O2 therapy with exacerbation resolving 8. Acute kidney injury resolving PLAN: 1. Continue Lopressor 50 bid 2. Increase Altace 10 bid 3. Continue Lipitor 20 qhs 4. Continue ASA 81 qd 5. Lasix prn 6. Antibiotics as per ID team 7. Bronchodilators, O2 as needed and oral steroid taper with GI and DVT prophylaxis as per pulmonary team 8. Can be transferred to floor care from the cardiovascular point of view 9. D/c planning
[2018-01-24] MEDS ORDERED: PT OWN MED DRAWER 7, Y5N ONE (08:59)
[2018-01-24] MEDS: METOPROLOL TARTRATE 50 MG TABLET (FP) PO SCH (09:03)
[2018-01-24] MEDS: RAMIPRIL 5 MG CAPSULE (FP) PO SCH (09:03)
[2018-01-24] MEDS: PANTOPRAZOLE 20 MG TABLET (FP) PO SCH (09:03)
[2018-01-24] MEDS: ASPIRIN 81 MG CHEWABLE TABLETS PO SCH (09:03)
[2018-01-24] MEDS: BUDESONIDE/FORMETEROL FUMARATE 160/4.5 mcg INHALER IH SCH (09:03)
[2018-01-24] MEDS ORDERED: RAMIPRIL 5 MG CAPSULE (FP) PO SCH (10:00)
[2018-01-24] MEDS ORDERED: predniSONE 20 MG TABLET (UD) PO SCH (10:00)
[2018-01-24 10:38] VITALS: PULSE 69
--- NOTE | 2018-01-24 11:06 | PN ---
Progress Note (short form) - Note Progress Note: Feels better today. Shortness of breath/cough slowly continues to resolve. No CP. Remains afebrile. Intake & Output 01/21/18 01/22/18 01/23/18 01/24/18 23:59 23:59 23:59 23:59 Intake Total 750 1100 1370 Output Total 1510 1770 1450 900 Balance -760 -670 -80 -900 Last Vital Signs Temp Pulse Resp BP Pulse Ox 98.5 F 69 20 134/107 97 01/24/18 10:00 01/24/18 10:00 01/24/18 10:00 01/24/18 10:00 01/24/18 10:00 Active Medications Acetaminophen (Tylenol -) 650 mg PO Q4H PRN PRN Reason: FEVER Last Admin: 01/17/18 10:22 Dose: 650 mg Albuterol Sulfate (Ventolin 0.083% Nebulizer Soln -) 1 amp NEB Q4H PRN PRN Reason: SHORT OF BREATH/WHEEZING Last Admin: 01/24/18 07:25 Dose: 1 amp Aspirin (Asa -) 81 mg PO DAILY [facility] Last Admin: 01/24/18 09:03 Dose: 81 mg Atorvastatin Calcium (Lipitor -) 20 mg PO HS [facility] Last Admin: 01/23/18 21:35 Dose: 20 mg Budesonide/Formoterol Fumarate (Symbicort 160/4.5mcg -) 2 puff IH BID [facility] Last Admin: 01/24/18 09:03 Dose: 2 puff Gabapentin (Neurontin -) 600 mg PO TID [facility] Last Admin: 01/24/18 07:01 Dose: 600 mg Heparin Sodium (Porcine) (Heparin -) 5,000 unit SQ TID [facility] Last Admin: 01/24/18 07:01 Dose: 5,000 unit Insulin Aspart (Novolog Vial Sliding Scale -) 1 vial SQ Q6H [facility]; Protocol Last Admin: 01/24/18 05:46 Dose: Not Given Insulin Detemir (Levemir Vial) 22 units SQ BID@0700,2200 [facility] Last Admin: 01/24/18 07:01 Dose: 22 units Metoprolol Tartrate (Lopressor -) 50 mg PO BID [facility] Last Admin: 01/24/18 09:03 Dose: 50 mg Pantoprazole Sodium (Protonix -) 20 mg PO DAILY [facility] Last Admin: 01/24/18 09:03 Dose: 20 mg Prednisone (Deltasone -) 40 mg PO DAILY [facility] Last Admin: 01/24/18 09:03 Dose: 40 mg Ramipril (Altace -) 10 mg PO BID [facility] Last Admin: 01/24/18 09:28 Dose: Not Given Simethicone (Mylicon -) 80 mg PO Q4H PRN PRN Reason: GAS Last Admin: 01/23/18 14:03 Dose: 80 mg Tamsulosin HCl (Flomax -) 0.8 mg PO DAILY@0830 [facility] Last Admin: 01/24/18 09:02 Dose: 0.8 mg Gen: NAD, less tachypneic at rest Heart: RRR Lung: decreased breath sounds at the bases Abd: soft, nontender, obese Ext: no edema Laboratory Results - last 24 hr 01/23/18 01/23/18 01/23/18 12:18 16:51 21:00 POC Glucometer 212 282 305 01/24/18 05:30 POC Glucometer 135 A/P Acute Pancreatitis Sepsis COPD Chronic Hypoxic Respiratory Failure CAD AV Block s/p PPM LV Diastolic Dysfunction Acute Kidney Injury improving - ABX per ID - monitor urine output, creatinine - Prednisone - Inhaled bronchodilators standing and PRN - O2 to keep Spo2 >90% - DVT prophylaxis Dr Lujan
--- NOTE | 2018-01-24 11:13 | PN ---
Progress Note (short form) - Note Progress Note: Vital Signs Temp 98.5 F 01/24/18 10:00 Pulse 69 01/24/18 10:00 Resp 20 01/24/18 10:00 BP 134/107 01/24/18 10:00 Pulse Ox 97 01/24/18 10:00 Intake & Output 01/23/18 01/23/18 01/24/18 11:59 23:59 11:59 Intake Total 540 830 Output Total 600 850 900 Balance -60 -20 -900 Intake: IV 30 right hand #22g 01/21/18 30 Oral 540 800 Output: Urine 600 850 900 Void 600 850 900 Other: Voiding Method Urinal Urinal Urinal Bowel Movement Yes # Bowel Movements 1 Active Medications Acetaminophen (Tylenol -) 650 mg PO Q4H PRN PRN Reason: FEVER Last Admin: 01/17/18 10:22 Dose: 650 mg Albuterol Sulfate (Ventolin 0.083% Nebulizer Soln -) 1 amp NEB Q4H PRN PRN Reason: SHORT OF BREATH/WHEEZING Last Admin: 01/24/18 07:25 Dose: 1 amp Aspirin (Asa -) 81 mg PO DAILY [facility] Last Admin: 01/24/18 09:03 Dose: 81 mg Atorvastatin Calcium (Lipitor -) 20 mg PO HS [facility] Last Admin: 01/23/18 21:35 Dose: 20 mg Budesonide/Formoterol Fumarate (Symbicort 160/4.5mcg -) 2 puff IH BID [facility] Last Admin: 01/24/18 09:03 Dose: 2 puff Gabapentin (Neurontin -) 600 mg PO TID [facility] Last Admin: 01/24/18 07:01 Dose: 600 mg Heparin Sodium (Porcine) (Heparin -) 5,000 unit SQ TID [facility] Last Admin: 01/24/18 07:01 Dose: 5,000 unit Insulin Aspart (Novolog Vial Sliding Scale -) 1 vial SQ Q6H [facility]; Protocol Last Admin: 01/24/18 05:46 Dose: Not Given Insulin Detemir (Levemir Vial) 22 units SQ BID@0700,2200 [facility] Last Admin: 01/24/18 07:01 Dose: 22 units Metoprolol Tartrate (Lopressor -) 50 mg PO BID [facility] Last Admin: 01/24/18 09:03 Dose: 50 mg Pantoprazole Sodium (Protonix -) 20 mg PO DAILY [facility] Last Admin: 01/24/18 09:03 Dose: 20 mg Prednisone (Deltasone -) 40 mg PO DAILY [facility] Last Admin: 01/24/18 09:03 Dose: 40 mg Ramipril (Altace -) 10 mg PO BID [facility] Last Admin: 01/24/18 09:28 Dose: Not Given Simethicone (Mylicon -) 80 mg PO Q4H PRN PRN Reason: GAS Last Admin: 01/23/18 14:03 Dose: 80 mg Tamsulosin HCl (Flomax -) 0.8 mg PO DAILY@0830 [facility] Last Admin: 01/24/18 09:02 Dose: 0.8 mg CBC,CMP WBC 12.5 K/mm3 (4.0-10.0) H 01/21/18 06:00 RBC 3.74 M/mm3 (4.00-5.60) L 01/21/18 06:00 Hgb 11.5 GM/dL (11.7-16.9) L 01/21/18 06:00 Hct 34.8 % (35.4-49) L 01/21/18 06:00 MCV 92.9 fl (80-96) 01/21/18 06:00 MCH 30.6 pg (25.7-33.7) 01/21/18 06:00 MCHC 33.0 g/dl (32.0-35.9) 01/21/18 06:00 RDW 14.9 % (11.9-15.9) 01/21/18 06:00 Plt Count 265 K/MM3 (134-434) 01/21/18 06:00 MPV 10.3 fl (7.5-11.1) 01/21/18 06:00 Absolute Neuts (auto) 11.3 # 01/21/18 06:00 Total Counted 100 01/14/18 08:10 Neutrophils % 90.5 % (42.8-82.8) H 01/21/18 06:00 Neutrophils % (Manual) 88.1 % (42.8-82.8) H 01/21/18 06:00 Band Neutrophils % 0.0 % 01/21/18 06:00 Lymphocytes % 4.8 % (8-40) L 01/21/18 06:00 Lymphocytes % (Manual) 5.0 % (8-40) L 01/21/18 06:00 Monocytes % 4.6 % (3.8-10.2) 01/21/18 06:00 Monocytes % (Manual) 7 % (3.8-10.2) 01/21/18 06:00 Eosinophils % 0.0 % (0-4.5) 01/21/18 06:00 Eosinophils % (Manual) 0.0 % (0-4.5) 01/21/18 06:00 Basophils % 0.1 % (0-2.0) 01/21/18 06:00 Basophils % (Manual) 0.0 % (0-2.0) 01/21/18 06:00 Myelocytes % (Man) 0 % (0-2) D 01/21/18 06:00 Promyelocytes % (Man) 0 % (0-2) 01/21/18 06:00 Blast Cells % (Manual) 0 % (0-0) 01/21/18 06:00 Nucleated RBC % 0 % (0-0) 01/21/18 06:00 Metamyelocytes 0 % (0-2) 01/21/18 06:00 Hypochromia 0 01/18/18 05:45 Platelet Estimate Normal 01/18/18 05:45 Polychromasia 0 01/18/18 05:45 Poikilocytosis 0 01/18/18 05:45 Basophilic Stippling 1+ 01/15/18 05:45 Anisocytosis 1+ 01/21/18 06:00 Microcytosis 0 01/18/18 05:45 Macrocytosis 1+ 01/21/18 06:00 Sodium 141 mmol/L (136-145) 01/21/18 06:00 Potassium 4.9 mmol/L (3.5-5.1) 01/21/18 06:00 Chloride 102 mmol/L (98-107) 01/21/18 06:00 Carbon Dioxide 35 mmol/L (21-32) H 01/21/18 06:00 Anion Gap 4 (8-16) L 01/21/18 06:00 BUN 24 mg/dL (7-18) H 01/21/18 06:00 Creatinine 1.1 mg/dL (0.7-1.3) 01/21/18 06:00 Creat Clearance w eGFR > 60 (>60) 01/21/18 06:00 POC Glucometer 135 UNITS (80-120) 01/24/18 05:30 Random Glucose 247 mg/dL (74-106) H D 01/21/18 06:00 Hemoglobin A1c % 7.2 % (4.8-6.0) H 01/11/18 06:00 Lactic Acid 2.0 mmol/L (0.0-2.0) 01/10/18 18:48 Calcium 8.3 mg/dL (8.5-10.1) L 01/21/18 06:00 Phosphorus 2.8 mg/dL (2.5-4.9) 01/14/18 08:10 Magnesium 1.9 mg/dL (1.8-2.4) D 01/17/18 05:35 Total Bilirubin 0.3 mg/dL (0.2-1.0) 01/21/18 06:00 Direct Bilirubin 0.3 mg/dL (0.0-0.2) H D 01/12/18 05:30 AST 13 U/L (15-37) L D 01/21/18 06:00 ALT 20 U/L (12-78) D 01/21/18 06:00 Alkaline Phosphatase 116 U/L (45-117) D 01/21/18 06:00 Creatine Kinase 216 IU/L (39-308) 01/12/18 05:30 Creatine Kinase Index 0.6 % (0.0-5.0) 01/12/18 05:30 CK-MB (CK-2) 1.43 ng/mL (0.5-3.6) 01/12/18 05:30 Troponin I 0.04 ng/ml (0.00-0.05) D 01/12/18 05:30 Total Protein 5.7 g/dl (6.4-8.2) L 01/21/18 06:00 Albumin 2.4 g/dl (3.4-5.0) L 01/21/18 06:00 Triglycerides 102 mg/dL (35-160) 01/11/18 06:00 Cholesterol 74 mg/dL (50-200) 01/11/18 06:00 Total LDL Cholesterol 40 mg/dL (5-100) 01/11/18 06:00 HDL Cholesterol 12 mg/dL (40-60) L D 01/11/18 06:00 Lipase 319 U/L (73-393) 01/21/18 06:00
--- NOTE | 2018-01-24 11:20 | DS ---
Physical Examination Vital Signs: Vital Signs Temperature 98.5 F 01/24/18 10:00 Pulse Rate 69 01/24/18 10:00 Respiratory Rate 20 01/24/18 10:00 Blood Pressure 134/107 01/24/18 10:00 O2 Sat by Pulse Oximetry (%) 97 01/24/18 10:00 Findings/Remarks: patient seen and examined sitting in chair Comfortable all follow-ups noted Denies pain Afebrile Constitutional: Yes: No Distress, Calm Eyes: Yes: Conjunctiva Clear Neck: Yes: Supple Cardiovascular: Yes: Regular Rate and Rhythm Respiratory: Yes: Diminished Gastrointestinal: Yes: Soft, Abdomen, Obese Edema: No Neurological: Yes: Alert Labs: CBC, BMP 01/21/18 06:00 01/21/18 06:00 Discharge Summary Reason For Visit: PANCREATITIS; SEVERE SEPSIS Current Active Problems FRANCISCO (acute kidney injury) (Acute) COPD (chronic obstructive pulmonary disease) (Acute) COPD (chronic obstructive pulmonary disease) (Acute) Chronic hypoxemic respiratory failure (Acute) Colitis (Acute) Demand ischemia (Acute) Diastolic dysfunction (Acute) Pacemaker (Acute) Pancreatitis (Acute) Sepsis (Acute) Severe sepsis (Acute) Volume overload (Acute) Hospital Course: patient admitted due to acute pancreatitis./ respiratory distress/ sepsis treated with fluids and antibiotics. had ultrasound/CT abdomen done--- reports in the chart Also treated with steroids for the COPD Slowly not improved Now stabilized Patient followed by cardiology pulmonary as well as GI HIDA scan was also done--- a few days ago----no reading yet--- called radiology again Will review once report is available Overall stabilized--for transfer back to [facility] Medications reconciled Taper steroids Off antibiotics Discussed with also.---agree with the plan discussed with nursing staff also Condition: Guarded - Instructions Referrals: Shabnam Leung MD [Primary Care Provider] - - Home Medications Comprehensive Discharge Medication List: Ambulatory Orders Aspirin [ASA -] 81 mg PO DAILY 01/10/18 Atorvastatin Ca [Lipitor] 20 mg PO HS 01/10/18 Brinzolamide [Azopt] 1 drop OP BID 01/10/18 Dextran 70/Hypromellose/Pf [Artificial Tears Drops] 1 each OP BID 01/10/18 Divalproex *ER* [Depakote *ER* -] 500 mg PO BID 01/10/18 Docusate Sodium [Colace] 100 mg PO DAILY 01/10/18 Latanoprost 0.005% Eye Drops [Xalatan 0.005% Eye Drops -] 1 drop OP HS 01/10/18 Levocetirizine Dihydrochloride [Xyzal] 5 mg PO HS 01/10/18 Magnesium Hydroxide [Milk of Magnesia -] 30 ml PO DAILY PRN 01/10/18 Menthol/Colloidal Oatmeal [Eucerin Calm Itch-Relief Lot] 200 ml TP BID 01/10/18 Metformin HCl [Glucophage] 500 mg PO DAILY 01/10/18 Metoprolol Tartrate [Lopressor -] 25 mg PO BID 01/10/18 Montelukast Sodium [Singulair] 10 mg PO DAILY 01/10/18 Omeprazole Magnesium [Prilosec Otc] 20 mg PO DAILY 01/10/18 Ramipril [Altace] 2.5 mg PO DAILY 01/10/18 Sennosides [Senna] 8.6 mg PO HS 01/10/18 Sitagliptin Phosphate [Januvia] 100 mg PO DAILY 01/10/18 Sodium Phosphate,[place]-Dibasic [Fleet Enema] 133 ml RC PRN PRN 01/10/18 Tamsulosin HCl [Flomax] 0.4 mg PO DAILY 01/10/18 Albuterol 0.083% Nebulizer Joanne [Ventolin 0.083% Nebulizer Soln -] 1 amp NEB Q4H PRN amp 01/24/18 Aspirin [ASA -] 81 mg PO DAILY tab.chew 01/24/18 Atorvastatin Ca [Lipitor] 20 mg PO HS tablet 01/24/18 Budesonide/Formeterol Fumarate [SYMBICORT 160/4.5mcg -] 2 puff IH BID inhaler 01/24/18 Heparin - 5,000 unit SQ TID vial 01/24/18 Insulin (Levemir) [Levemir Vial] 18 units SQ BID@0700,2200 units 01/24/18 Insulin (Levemir) [Levemir Vial] 22 units SQ BID@0700,2200 units 01/24/18 Insulin Sliding Scale [Novolog Vial Sliding Scale -] 1 vial SQ Q6H units Metoprolol Tartrate [Lopressor -] 50 mg PO BID tablet 01/24/18 Pantoprazole Sodium [Protonix -] 20 mg PO DAILY tablet.ec 01/24/18 Ramipril [Altace] 10 mg PO DAILY capsule 01/24/18 Simethicone [Mylicon -] 80 mg PO Q4H PRN tab.chew 01/24/18 predniSONE [Deltasone -] 40 mg PO DAILY 30 Days tablet 01/24/18
[2018-01-24 15:08] VITALS: BP 137/73; TEMP 98.1
== END 2018-01-24 19:10 | DRG 720 ==
LOC: JER 14:12 → JERBED 19:10 → J6S 21:47 → JICU 01-11 11:38 → J4S 01-14 08:59
PROVIDERS: ADMIT Internal Medicine; ATTEND Internal Medicine
DX: A41.9 Sepsis, unspecified organism (principal); N17.9 Acute kidney failure, unspecified; K85.90 Acute pancreatitis without necrosis or infection, unspecified; J96.11 Chronic respiratory failure with hypoxia; K52.1 Toxic gastroenteritis and colitis; E87.2 Acidosis; E11.65 Type 2 diabetes mellitus with hyperglycemia; I24.8 Other forms of acute ischemic heart disease; J44.9 Chronic obstructive pulmonary disease, unspecified; Z99.81 Dependence on supplemental oxygen; E87.70 Fluid overload, unspecified; Z68.41 Body mass index [BMI] 40.0-44.9, adult; R62.7 Adult failure to thrive; I45.10 Unspecified right bundle-branch block; F03.90 Unspecified dementia, unspecified severity, without behavioral disturbance, psychotic disturbance, mood disturbance, and anxiety; I25.119 Atherosclerotic heart disease of native coronary artery with unspecified angina pectoris; I10 Essential (primary) hypertension; Z95.0 Presence of cardiac pacemaker; E66.9 Obesity, unspecified; E78.5 Hyperlipidemia, unspecified; Z79.84 Long term (current) use of oral hypoglycemic drugs; Z87.891 Personal history of nicotine dependence
CPT/HCPCS: 36415; 36600; 70450-TC; 71045-TC-FY; 74176-TC; 76705-TC; 78226-TC; 80048; 80053; 80061; 80076; 81003; 81015; 82272; 82550; 82553; 82803; 82962; 83036; 83605; 83690; 83721; 83735; 84100; 84484; 85025; 85027; 85610; 85730; 87040; 87045; 87046; 87086; 87324; 87449; 93005; 93010; 93306-TC; 94640; 94660; 97116-GP; 97162-GP; 99285-25; A9537; J0131; J1644; J7030; J7620